=== PATIENT | male | born 1940 | race Caucasian/White ===

== ENCOUNTER → 2020-05-28 14:46 | Outpatient (BNVA) | payer MEDICARE, SELFPAY | PROVIDERS: PCP Family Medicine; Referring Provider Family Medicine; Visit Provider Internal Medicine Cardiovascular Disease | DX: I25.118 Atherosclerotic heart disease of native coronary artery with other forms of angina pectoris (principal); I48.0 Paroxysmal atrial fibrillation; I10 Essential (primary) hypertension; Z79.01 Long term (current) use of anticoagulants; Z79.02 Long term (current) use of antithrombotics/antiplatelets | CPT/HCPCS: 99212 ==

== ENCOUNTER 2020-07-15 10:55 | Outpatient (REF) | payer MEDICARE, SELFPAY ==
--- NOTE | 2020-07-15 | XR_ITS ---
EXAMINATION: XR CHEST CLINICAL INFORMATION: Fall COMPARISON: May 11, 2018 TECHNIQUE: 2 views of the chest were obtained. FINDINGS: There is no evidence of acute parenchymal disease, pneumothorax, or pleural effusion. Heart normal size. No evidence of pulmonary edema. Small metallic foreign body seen about the anterior chest wall. XR/XR chest 2V IMPRESSION: No acute disease.
[2020-07-15 12:06] LABS: Glucose Urine UA NEG (NEG); Leukocyte Esterase Urine NEG (NEG); Nitrite Urine NEG (NEG); PH 5.5 (5.0-8.0); Specific Gravity - Urine >= 1.030 (1.005-1.025); Urine Blood NEG (NEG); Urine Ketones NEG (NEG); Urine Protein 1+ MG/DL (NEG-TRACE)
[2020-07-15 12:10] LABS: Appearance Urine CLEAR; Color Urine YELLOW
[2020-07-15 12:28] LABS: Mucus Urine TRACE /LPF; RBC Urine 0 /HPF (0); Squamous Epithelial Cell Urine TRACE /LPF; WBC Urine 0 /HPF (0-4)
== END 2020-07-15 10:56 | disposition home or self-care (01) ==
LOC: HO.LNP 10:55
PROVIDERS: Visit Provider Family Medicine
DX: R10.9 Unspecified abdominal pain (principal); Z91.81 History of falling
CPT/HCPCS: 71046; 81001; 81003

== ENCOUNTER → 2021-12-06 14:50 | Outpatient (BNVA) | payer MEDICARE, SELFPAY | PROVIDERS: PCP Family Medicine; Referring Provider Family Medicine; Visit Provider Internal Medicine Cardiovascular Disease | DX: I48.0 Paroxysmal atrial fibrillation (principal); I10 Essential (primary) hypertension; I20.8 Other forms of angina pectoris | CPT/HCPCS: 93005; 99212 ==

== ENCOUNTER → 2022-06-13 08:51 | Outpatient (BNVA) | payer MEDICARE, SELFPAY | PROVIDERS: PCP Family Medicine; Visit Provider Internal Medicine Cardiovascular Disease | DX: I10 Essential (primary) hypertension (principal); I48.0 Paroxysmal atrial fibrillation; I20.8 Other forms of angina pectoris | CPT/HCPCS: 93005; 99212 ==

== ENCOUNTER 2023-06-07 09:34 | Outpatient (AMB) | payer MEDICARE, SELFPAY ==
--- NOTE | 2023-06-07 09:46 | MHC.OFFVIS ---
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 Allergies No Known Allergies Allergy (Verified 06/13/22 08:58) Medication List - Last Reconciled 06/07/23 by Joseph Araujo MD amitriptyline 25 mg PO BEDTIME amlodipine 5 mg PO BEDTIME apixaban 5 mg PO BID 90 days aspirin (Adult Aspirin Regimen) 81 mg PO DAILY atorvastatin 40 mg PO BEDTIME ciclopirox 0.77% appl topical coenzyme Q10 (Co Q-10) 100 mg PO DAILY loratadine 10 mg PO DAILY metformin ER 500 mg PO BEDTIME multivitamin 1 tab PO DAILY nitroglycerin 0.4 mg sublingual every 5 min as needed for chest pain, max 3 doses per event; every 5 min as needed for chest pain, max 3 doses per event 30 days omeprazole 40 mg PO DAILY sotalol 80 mg PO DAILY HPI HPI Comments History of Present Illness Details 82-year-old gentleman here for follow-up. He has background history of paroxysmal atrial fibrillation and has been on sotalol and has been sinus rhythm. He also has known coronary disease with previous PCI right coronary artery and circumflex arteries. Clinically stable and has been doing well. He is just recovering from left knee replacement. He is undergoing rehab at this stage and 3 weeks out from surgery. He has significant pain in the knee but is trying to exercise regularly at rehab facility. Denying any chest pain or shortness of breath. Overall clinically stable. 06/07/2023: He returns for follow-up. His EKG in the office showing inferior Q-waves which are new. He is denying any symptoms. He is actually more active than before and has been going to gym every day and exercising up to 5 hours. He is denying any chest discomfort or significant shortness of breath. His main complaint again is fatigue. No bleeding issues. Taking his medications regularly. Blood pressure control is good. He is in sinus rhythm on sotalol. [facility] Medical History (Updated 05/28/20 @ 15:15 by Joseph Araujo MD) Hypertension PAF (paroxysmal atrial fibrillation) Stable angina Surgical History History of cardiac cath History of hip surgery History of total right knee replacement Hx of cholecystectomy Family History Father No problems noted. Mother No problems noted. Social History Alcohol intake: current Alcohol intake frequency: holidays/special occasions only Patient Tobacco Use Status: Former Tobacco user Quit Date: 1979 Smoked: 5 +/- Review of Systems Const Denies chills, Denies fatigue, Denies fever(s), Denies frequent falls, Denies weakness, Denies weight gain and Denies weight loss ENT Denies dizziness Card Denies chest pain, Denies leg edema, Denies lightheadedness, Denies palpitations, Denies dyspnea, Denies dyspnea on exertion, Denies orthopnea and Denies other (loss of consciousness) Resp Denies cough, Denies dyspnea and Denies dyspnea on exertion GI Denies hematochezia and Denies change in stool character Musc Denies abnormal gait, Denies muscle weakness, Denies numbness, Denies radiating pain into limb and Denies tingling Neuro Denies abnormal gait, Denies dizziness, Denies frequent falls, Denies numbness, Denies tingling and Denies weakness Endo Denies fatigue and Denies palpitations Physical Exam Vital Signs: Last Vital Signs Pulse 63 06/07/23 09:47 BP 122/70 06/07/23 09:47 BMI result Body Mass Index 34.2 GENERAL APPEARANCE: in no acute distress, pleasant. NECK: no carotid bruit, no jugular venous distention. SKIN: no suspicious lesions, warm and dry. HEART: no murmurs, regular rate and rhythm. LUNGS: clear to auscultation bilaterally. ABDOMEN: soft, nontender. EXTREMITIES: Mild edema. PERIPHERAL PULSES: equal. NEUROLOGIC: No gross deficits, AAO X 3 Office Procedures EKG Details: Sinus rhythm 63 beats per minute, normal axis, inferior infarct, QTC 395 milliseconds [id number], Complete Assessment & Plan Assessment & Plan (1) Stable angina: Code(s): I20.8 - Other forms of angina pectoris (2) PAF (paroxysmal atrial fibrillation): Code(s): I48.0 - Paroxysmal atrial fibrillation (3) Hypertension: Code(s): I10 - Essential (primary) hypertension Plan Pleasant 83 year gentleman who is here for follow-up. He has background history of paroxysmal atrial fibrillation. He has been on sotalol 80 mg daily. QTC is normal. He is on apixaban for anticoagulation. He has history of coronary disease with previous RCA and circumflex PCI. His EKG showing inferior Q-waves which are new compared to before. He has no symptoms though and has been more active than before. I have advised him to do an echocardiogram to assess for any wall motion abnormality. Depending on that we will do further testing. Blood pressure control is good. He will see us back in October. As he gets his echocardiogram and if there is any abnormality then we will get in touch with him for further testing before he leaves for [place]. Thank you for allowing me to participate in the care of your patient. Please feel free to contact me if you have any questions. Orders: Orders CA echo transthoracic complete Today I20.8 - Other forms of angina pectoris Coding Level of Care Code Est Pt Level 4 (88812) Diagnoses Stable angina I20.8 PAF (paroxysmal atrial fibrillation) I48.0 Hypertension I10 CPT Codes EKG - CPT: 12204-[id number], Complete ([id number])
[2023-06-07 09:47] VITALS: BP 122/70; PULSE 63; BMI 34.2
== END 2023-06-07 10:12 | disposition home or self-care (01) ==
PROVIDERS: PCP Family Medicine; Visit Provider Internal Medicine Cardiovascular Disease
DX: I20.8 Other forms of angina pectoris (principal); I48.0 Paroxysmal atrial fibrillation; I10 Essential (primary) hypertension
CPT/HCPCS: 93010; 99214

== ENCOUNTER → 2023-06-07 09:34 | Outpatient (BNVA) | payer MEDICARE, SELFPAY | PROVIDERS: PCP Family Medicine; Visit Provider Internal Medicine Cardiovascular Disease | DX: I48.0 Paroxysmal atrial fibrillation (principal); I20.89 Other forms of angina pectoris; I10 Essential (primary) hypertension | CPT/HCPCS: 93005; 99212 ==

== ENCOUNTER → 2023-07-06 14:38 | Outpatient (REF) | payer MEDICARE, SELFPAY ==
--- NOTE | 2023-07-06 14:41 | CA_ITS ---
Transthoracic Echocardiogram Patient (Last, First, Middle): Chris Avalos H Gender: Male Date of : 1940 Age: 83 Procedure Date: 07/06/2023 Procedure Type: Transthoracic Echocardiogram Location: OP Height: 170. cm Weight: 100.7 kg BSA: 2.11 m2 Heart Rate: 62 bpm BP: 125 / 60 mmHg Gifts Officer: LAWRENCE Referring MD: Joseph Araujo MD Symptoms: I20.8 - Other forms of angina pectoris Study Quality: Fair ECG Rhythm: Atrial Fibrillation Conclusions: - The left ventricular systolic function is normal. The visually estimated ejection fraction is between 65-70%. - No obvious valvular pathology seen on this study. Findings Left Ventricle Normal left ventricular cavity size. There is mildly increased left ventricular wall thickness. The left ventricular systolic function is normal. The visually estimated ejection fraction is between 65-70%. There is no evidence of regional wall motion abnormalities. Evidence suggests grade I (mild) diastolic dysfunction. There is moderate septal asymmetric hypertrophy. LV peak GLS -16.3%, could be underestimation. Right Ventricle Normal right ventricular cavity size and systolic function. Atria The left atrium is mildly dilated. The right atrium is normal in size. Aortic Valve There is a normal trileaflet aortic valve. There is mild calcification of the aortic valve. There is no aortic valve stenosis. There is trace (trivial) aortic valve regurgitation. Mitral Valve The mitral valve appears normal. There is no mitral valve regurgitation. There is no mitral valve stenosis. Pulmonic Valve The pulmonic valve is likely normal. Tricuspid Valve Normal tricuspid valve structure. There is trace tricuspid valve regurgitation. There is no evidence of pulmonary hypertension. Great Vessels The asc aorta is normal in size. Small plaque is seen in the sino tubular ridge. Venous The inferior vena cava is normal in size and collapses greater than 50% with inspiration. Pericardium/Pleural There is no evidence of pericardial effusion. Prior Study Comparison No significant change compared to prior study dated: 05/12/2018. Recommendations, Care & Conclusions No obvious valvular pathology seen on this study. Measurements 2D Linear Measurements IVSd: 1.41 0.6-0.9/0.6-1.0 cm LVIDd: 4.56 3.9-5.3/4.2-5.9 cm LVIDd Index: 2.16 2.4-3.2/2.2-3.1 cm/m2 LVIDs: 2.58 2.0-3.6 cm LVPWd: 1.11 0.7-1.1 cm LA Diam: 3.60 2.7-3.8/3.0-4.0 cm LAIDs Index: 1.71 1.5-2.3 cm/m2 LV Mass: 270.48 67-162/88-224 g LV Mass Index: 128.19 43-95/49-115 g/m2 LVOT Diam: 1.80 3.0+(-)1.3 cm 2D Systolic Function EF 4C: 63.40 >55% EF 2C: 57.40 >55% EF BiP: 61.10 >55% Mitral Valve MV Pk E: 1.16 MV PK A: 0.72 MV Decel Time: 200.00 E/A: 1.60 E'Lateral: 6.20 E'Medial: 6.09 E/E' Med: 19.00 E/E' Lat: 18.70 PHT: 59.00 MVA PHT: 3.73 Decel [place]: 5.80 Aortic Valve AoV Pk Emerson: 1.34 AoV Mn Emerson: 0.94 AoV VTI: 0.31 AoV Pk Grad: 7.00 Aov Mn Grad: 4.00 CRISTHIAN Cont.VTI: 2.38 AI Pk Emerson: 3.32 AI [place]: 1.71 LVOT LVOT Pk Emerson: 1.24 LVOT Mn Emerson: 0.85 LVOT VTI: 0.29 LVOT Pk Grad: 6.00 LVOT Mn Grad: 3.00 LVOT Diam: 1.80 LVOT Area: 2.54 Diastolic Function MV Pk E: 1.16 MV Pk A: 0.72 E/A: 1.60 E'Medial: 6.09 E/E' Med: 19.00 E' Laterial: 6.20 E/E' Lat: 18.70 Right Ventricle TAPSE (mm): 24.40 TVS' Emerson: 13.90 Tricuspid Valve TR Pk Emerson: 2.37 TR Pk Grad: 22.00 RA Press: 3.00 RVSP: 25.00 Great Vessels Aorta Sinus of Valsalva: 3.20 2.0-3.5 cm Ao Asc: 3.40 2.1-3.4 cm Pulmonary Valve PV Pk Emerson: 0.92 Peak PV Grad: 3.00 Updated in Other Vendor System with Status of Final Sky Lopez MD electronically signed on 07/08/2023 1:25:11 PM with status of Final
== END ==
LOC: HO.CARD 14:38
PROVIDERS: PCP Family Medicine; Visit Provider Internal Medicine Cardiovascular Disease
DX: I20.81 Angina pectoris with coronary microvascular dysfunction (principal)
CPT/HCPCS: 93306; 93356

== ENCOUNTER → 2023-07-06 14:41 | Outpatient (BNV) | payer MEDICARE, SELFPAY | PROVIDERS: PCP Family Medicine; Visit Provider Internal Medicine | DX: I20.81 Angina pectoris with coronary microvascular dysfunction (principal); I35.8 Other nonrheumatic aortic valve disorders | CPT/HCPCS: 93306 ==

== ENCOUNTER 2024-01-03 09:57 | Outpatient (AMB) | payer MEDICARE, SELFPAY ==
[2024-01-03 10:00] VITALS: BP 140/62; PULSE 59; BMI 34.7
--- NOTE | 2024-01-03 10:00 | MHC.OFFVIS ---
Vital Signs 01/03/24 10:00 Height 5 ft 8 in Weight 227 lb 15.327 oz BMI 34.7 BP 140/62 H Blood Pressure Location Lt brachial Position Sitting Pulse 59 Intake Visit Reasons: f/up Intake Note: pt states that he is doing fine. 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 Accompanied by: Spouse Allergies No Known Allergies Allergy (Verified 06/13/22 08:58) Medication List - Last Reconciled 01/03/24 by Joseph Araujo MD amitriptyline 50 mg PO DAILY amlodipine 5 mg PO BEDTIME apixaban 5 mg PO BID 90 days aspirin (Adult Aspirin Regimen) 81 mg PO DAILY atorvastatin 40 mg PO BEDTIME ciclopirox 0.77% appl topical coenzyme Q10 (Co Q-10) 100 mg PO DAILY fenofibrate nanocrystallized 48 mg PO DAILY loratadine 10 mg PO DAILY metformin 1,000 mg PO BEDTIME multivitamin 1 tab PO DAILY nitroglycerin 0.4 mg sublingual every 5 min as needed for chest pain, max 3 doses per event; every 5 min as needed for chest pain, max 3 doses per event 30 days omeprazole 40 mg PO DAILY sotalol 80 mg PO DAILY HPI Comments Details: 83-year-old gentleman here for follow-up. He has background history of paroxysmal atrial fibrillation and has been on sotalol and has been sinus rhythm. He also has known coronary disease with previous PCI right coronary artery and circumflex arteries. Clinically stable and has been doing well. He is just recovering from left knee replacement. He is undergoing rehab at this stage and 3 weeks out from surgery. He has significant pain in the knee but is trying to exercise regularly at rehab facility. Denying any chest pain or shortness of breath. Overall clinically stable. 06/07/2023: He returns for follow-up. His EKG in the office showing inferior Q-waves which are new. He is denying any symptoms. He is actually more active than before and has been going to gym every day and exercising up to 5 hours. He is denying any chest discomfort or significant shortness of breath. His main complaint again is fatigue. No bleeding issues. Taking his medications regularly. Blood pressure control is good. He is in sinus rhythm on sotalol. 01/03/24: He returns for follow-up. He came back from [place] in 11/18/2023. He had some blood workup done recently which showed triglycerides more than 600. He was started on fenofibrate by his primary care physician. He has not noticed any muscle aches and pains. He has chronic joint pains which are similar to before. He said his diet while he was in [place] was not great because of using a lot of processed foods and canned food. They are changing the diet while there back in [place]. He is denying any chest pains or shortness of breath. No bleeding concerns on apixaban. He is on sotalol with normal QT interval and he is in sinus bradycardia. [facility] Medical History (Updated 05/28/20 @ 15:15 by Joseph Araujo MD) Hypertension PAF (paroxysmal atrial fibrillation) Stable angina Surgical History Hx of cholecystectomy History of cardiac cath History of total right knee replacement History of hip surgery Family History Father No problems noted. Mother No problems noted. Social History Alcohol intake: current Alcohol intake frequency: holidays/special occasions only Patient Tobacco Use Status: Former Tobacco user Years Smoked: 5 +/- Review of Systems Const Denies chills, Denies fatigue, Denies fever(s), Denies frequent falls, Denies weakness, Denies weight gain and Denies weight loss ENT Denies dizziness Card Denies chest pain, Denies leg edema, Denies lightheadedness, Denies palpitations, Denies dyspnea and Denies dyspnea on exertion Resp Denies cough, Denies dyspnea and Denies dyspnea on exertion GI Denies hematochezia Musc Denies abnormal gait, Denies muscle weakness, Denies numbness, Denies radiating pain into limb and Denies tingling Neuro Denies abnormal gait, Denies dizziness, Denies frequent falls, Denies numbness, Denies tingling and Denies weakness Endo Denies fatigue and Denies palpitations Physical Exam Vital Signs: Last Vital Signs Pulse 59 01/03/24 10:00 BP 140/62 H 01/03/24 10:00 BMI result Body Mass Index 34.7 GENERAL APPEARANCE: in no acute distress, pleasant. NECK: no carotid bruit, no jugular venous distention. SKIN: no suspicious lesions, warm and dry. HEART: no murmurs, regular rate and rhythm. LUNGS: clear to auscultation bilaterally. ABDOMEN: soft, nontender. EXTREMITIES: Mild edema. PERIPHERAL PULSES: equal. NEUROLOGIC: No gross deficits, AAO X 3 Office Procedures EKG Details: sinus bradycardia 59 beats per minute, normal axis, inferior Q-waves - old infarct, QTC 390 milliseconds. [id number], Complete Assessment & Plan Assessment & Plan (1) Hypertension: Code(s): I10 - Essential (primary) hypertension Category: Medical (2) PAF (paroxysmal atrial fibrillation): Code(s): I48.0 - Paroxysmal atrial fibrillation Category: Medical (3) Stable angina: Code(s): I20.8 - Other forms of angina pectoris Category: Medical Plan 83-year-old gentleman who is here for follow-up. He has known history of coronary disease and currently has stable angina. He is taking atorvastatin and amlodipine. He is on sotalol as antiarrhythmic for paroxysmal atrial fibrillation. Clinically appears to be stable. Denying any chest pain or shortness of breath. Blood pressure is mildly elevated which can be monitored and medications can be adjusted. I have advised him to get repeat fasting lipid panel in few weeks. He is saying that he is more sedentary when he goes to [place] versus when he is back in [place]. He will increase his activity and adjust his diet and we will reassess his lipid panel. Thank you for allowing me to participate in the care of your patient. Please feel free to contact me if you have any questions. Coding Level of Care Code Est Pt Level 4 (93345) Diagnoses Hypertension I10 PAF (paroxysmal atrial fibrillation) I48.0 Stable angina I20.8 CPT Codes EKG - CPT: 62254-Meolgriowxrskxiyz, Complete ([id number])
== END 2024-01-03 10:32 | disposition home or self-care (01) ==
PROVIDERS: PCP Family Medicine; Visit Provider Internal Medicine Cardiovascular Disease
DX: I10 Essential (primary) hypertension (principal); I48.0 Paroxysmal atrial fibrillation; I20.89 Other forms of angina pectoris
CPT/HCPCS: 93010; 99214

== ENCOUNTER → 2024-01-03 09:57 | Outpatient (BNVA) | payer MEDICARE, SELFPAY | PROVIDERS: PCP Family Medicine; Visit Provider Internal Medicine Cardiovascular Disease | DX: I48.0 Paroxysmal atrial fibrillation (principal); I10 Essential (primary) hypertension; I20.89 Other forms of angina pectoris | CPT/HCPCS: 93005; 99212 ==

== ENCOUNTER 2024-05-29 09:42 | Outpatient (AMB) | payer MEDICARE, SELFPAY ==
[2024-05-29 09:44] VITALS: BP 140/72; PULSE 66; BMI 35.3
--- NOTE | 2024-05-29 09:44 | A.OFFVIS_ITS ---
Vital Signs 05/29/24 09:44 Height 5 ft 8 in Weight 231 lb 14.821 oz BMI 35.3 BP 140/72 H Blood Pressure Location Lt brachial Position Sitting Pulse 66 Pulse Source Monitor Intake Visit Reasons: 4 month follow-up Intake Note: 4 mth f/up Spine Supervisor Required: No Accompanied by: Spouse Allergies No Known Allergies Allergy (Verified 06/13/22 08:58) Medication List - Last Reconciled 05/29/24 by Joseph Araujo MD amitriptyline 50 mg PO DAILY amlodipine 5 mg PO BEDTIME apixaban 5 mg PO BID 90 days aspirin (Adult Aspirin Regimen) 81 mg PO DAILY atorvastatin 40 mg PO BEDTIME ciclopirox 0.77% appl topical coenzyme Q10 (Co Q-10) 100 mg PO DAILY fenofibrate nanocrystallized 48 mg PO DAILY loratadine 10 mg PO DAILY metformin 1,000 mg PO BEDTIME multivitamin 1 tab PO DAILY nitroglycerin 0.4 mg sublingual every 5 min as needed for chest pain, max 3 doses per event; every 5 min as needed for chest pain, max 3 doses per event 30 days omeprazole 40 mg PO DAILY sotalol 80 mg PO DAILY HPI Comments Details: 83-year-old gentleman here for follow-up. He has background history of paroxysmal atrial fibrillation and has been on sotalol and has been sinus rhythm. He also has known coronary disease with previous PCI right coronary artery and circumflex arteries. Clinically stable and has been doing well. He is just recovering from left knee replacement. He is undergoing rehab at this stage and 3 weeks out from surgery. He has significant pain in the knee but is trying to exercise regularly at rehab facility. Denying any chest pain or shortness of breath. Overall clinically stable. 06/07/2023: He returns for follow-up. His EKG in the office showing inferior Q- waves which are new. He is denying any symptoms. He is actually more active than before and has been going to gym every day and exercising up to 5 hours. He is denying any chest discomfort or significant shortness of breath. His main complaint again is fatigue. No bleeding issues. Taking his medications regularly. Blood pressure control is good. He is in sinus rhythm on sotalol. 01/03/24: He returns for follow-up. He came back from [place] in 11/18/2023. He had some blood workup done recently which showed triglycerides more than 600. He was started on fenofibrate by his primary care physician. He has not noticed any muscle aches and pains. He has chronic joint pains which are similar to before. He said his diet while he was in [place] was not great because of using a lot of processed foods and canned food. They are changing the diet while there back in [place]. He is denying any chest pains or shortness of breath. No bleeding concerns on apixaban. He is on sotalol with normal QT interval and he is in sinus bradycardia. 05/29/2024: He is here for follow-up. He is denying any chest discomfort but continues to get some shortness of breath with activities. He has lower extremi ty edema. He has peripheral neuropathy on chronic metformin. He has CKD and is going to seen Nephrology. [facility] Medical History (Updated 05/28/20 @ 15:15 by Joseph Araujo MD) Hypertension PAF (paroxysmal atrial fibrillation) Stable angina Surgical History Hx of cholecystectomy History of cardiac cath History of total right knee replacement History of hip surgery Family History Father No problems noted. Mother No problems noted. Social History Alcohol intake: current Alcohol intake frequency: holidays/special occasions only Patient Tobacco Use Status: Former Tobacco user Years Smoked: 5 +/- Review of Systems Const Denies chills, Denies fatigue, Denies fever(s), Denies frequent falls, Denies weakness, Denies weight gain and Denies weight loss ENT Denies dizziness Card Denies chest pain, Denies leg edema, Denies lightheadedness, Denies palpitations, Denies dyspnea and Denies dyspnea on exertion Resp Denies cough, Denies dyspnea and Denies dyspnea on exertion GI Denies hematochezia Musc Denies abnormal gait, Denies muscle weakness, Denies numbness, Denies radiating pain into limb and Denies tingling Neuro Denies abnormal gait, Denies dizziness, Denies frequent falls, Denies numbness, Denies tingling and Denies weakness Endo Denies fatigue and Denies palpitations Physical Exam Vital Signs: Last Vital Signs Pulse 66 05/29/24 09:44 BP 140/72 H 05/29/24 09:44 BMI result Body Mass Index 35.3 GENERAL APPEARANCE: in no acute distress, pleasant. NECK: no carotid bruit, mild jugular venous distention. SKIN: no suspicious lesions, warm and dry. HEART: no murmurs, regular rate and rhythm. LUNGS: clear to auscultation bilaterally. ABDOMEN: soft, nontender. EXTREMITIES: Mild edema. PERIPHERAL PULSES: equal. NEUROLOGIC: No gross deficits, AAO X 3 Office Procedures EKG Details: Sinus rhythm 66 beats per minute, normal axis, inferior infarct, QTC 404 milliseconds. 52944-Badrokcopvwrarpdh, Complete Assessment & Plan Assessment & Plan (1) PAF (paroxysmal atrial fibrillation): Code(s): I48.0 - Paroxysmal atrial fibrillation Category: Medical (2) Stable angina: Code(s): I20.8 - Other forms of angina pectoris Category: Medical (3) Hypertension: Code(s): I10 - Essential (primary) hypertension Category: Medical Plan [age] gentleman who is here for follow-up. He has known history of paroxysmal atrial fibrillation on sotalol and has been on sinus rhythm. He is on anticoagulation with apixaban 5 mg twice a day. He has mild JVD with crackles and peripheral edema. His creatinine is 1.5 and he is starting to see Nephrology soon. I am adding isosorbide mononitrate 30 mg once a day. This will help his blood pressure and probably help with filling pressures. Would consider adding some diuretics after Nephrology input. His creatinine previously was 1.43 and is now 1.5. I think it is probably progression of chronic kidney disease. He has peripheral neuropathy due to diabetes and has been on metformin for long time. Sometime B12 deficiencies the cause and I have advised him to try obtx-slm-oeatetp B12 to see if that helps his symptoms. He will see us back as he returns from [place]. Thank you for allowing me to participate in the care of your patient. Please feel free to contact me if you have any questions. Medications: New isosorbide mononitrate ER 30 mg PO DAILY 60 tabs 3RF Coding Level of Care Code Est Pt Level 4 (19344) Diagnoses PAF (paroxysmal atrial fibrillation) I48.0 Stable angina I20.8 Hypertension I10 CPT Codes EKG - CPT: 80324-Ritntfkshvxrvtbul, Complete ([id number])
--- OUTSIDE RECORDS SUMMARY | 2024-05-29 09:44 | XMS_ITS | Continuity of Care Document ---
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 Role Phone Bashir Severino MD Primary Care Physician Encounter [facility] Date(s): 07/18/19 - 07/18/[address] [address]- [facility] Attending Physician: Bashir Severino MD Allergies, Adverse Reactions, Alerts Substance Reaction Severity Status NKA Active Immunizations Not Given Vaccine Date Status Refusal Reason pneumococcal 23-valent vaccine 1 06/24/15 Not Give n Patient Refuses 1Result Comment: Pt refused - states will take in few weeks Medications amitriptyline 25 mg oral tablet 1 tablet = 25 mg, By Mouth, Daily at bedtime, 0 Refills, Maintenance, 06/19/15 2:25:58 Start Date: 06/19/15 Status: Ordered apixaban 5 mg oral tablet = 5 mg, By Mouth, 2 times a day, # 120 tablet, 4 Refills, Maintenance, 06/02/18 10:11:16 EDT, Tablet Start Date: 06/02/18 Stop Date: 03/29/19 Status: Ordered Aspirin = 81 mg, By Mouth, Daily, 0 Refills, Maintenance, 06/19/15 2:29:04 Start Date: 06/19/15 Status: Ordered clopidogrel 75 mg oral tablet 75 mg, By Mouth, Daily, # 60 tablet, Refills 4, Tot. Refills 4, Maintenance, 06/02/18 10:11:29 EDT,Route to Pharmacy Electronically, [id number], [id number] Start Date: 06/02/18 Stop Date: 10/30/18 Status: Ordered Lipitor 80 mg oral tablet 1 tablet = 80 mg, By Mouth, Daily, # 60 tablet, 4 Refills, Maintenance, Tablet, Route to Pharmacy Electronically, [id number], [id number] Start Date: 06/02/18 Stop Date: 10/30/18 Status: Ordered loratadine 10 mg oral tablet 10 mg, 1, tablet, By Mouth, Daily, # 30 tablet, Refills 0, Maintenance, 05/16/17 15:10:33 Start Date: 05/16/17 Status: Ordered Lyrica 100 mg oral capsule 1 capsule = 100 mg, By Mouth, Daily at bedtime, 0 Refills, Maintenance, 06/19/15 2:25:16 Start Date: 06/19/15 Status: Ordered metFORMIN 500 mg oral tablet 1 tablet = 500 mg, By Mouth, Daily, To start only after 48 hours of discharge, # 60 tablet, 4 Refills, Maintenance, 06/02/18 10:11:43 EDT, Tablet Start Date: 06/02/18 Status: Ordered Misc Rx Refills 0, Maintenance, multivitamins, Coenzyme Q, Glucosamine and other [id number] supplements., 05/13/18 21:10:26 EDT, Compound Start Date: 05/13/18 Status: Ordered omeprazole 40 mg oral enteric coated capsule = 40 mg, By Mouth, Daily, # 60 capsule, 3 Refills, Maintenance, 06/02/18 10:13:04 EDT, Suspension Start Date: 06/02/18 Status: Ordered sotalol 80 mg oral tablet 80 mg, 1, tablet, By Mouth, 2 times a day, This was increased to 80mg BID at [place]., # 120 tablet, Refills 4, Tot. Refills 4, Maintenance, 06/02/18 10:11:35 EDT, Route to Pharmacy Electronically, [id number], [facility]... Start Date: 06/02/18 Stop Date: 10/30/18 Status: Ordered Tylenol Caplet Extra Strength = 1,000 mg, By Mouth, 2 times a day, 0 Refills, Maintenance, 06/19/15 2:30:51 Start Date: 06/19/15 Status: Ordered Problem List Condition Effective Dates Status Health Status Inform ant NSTEMI (non-ST elevated myoc ardial infarction)(Confirmed) Active Social History Social History Type Response Smoking Status Former smoker; Type: Cigarettes; Previous treatment: None entered on: 06/19/15 Sex
--- OUTSIDE RECORDS SUMMARY | 2024-05-29 09:44 | XMS_ITS ---
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 Name Role Phone Maycol CORTEZ, Bashir Primary Care Provider UnavailRom Calderón Unavailable [phone] ALLERGIES No Known Allergies REASON FOR VISIT At Risk Footcare MEDICATIONS Medication SIG (Take, Route, Frequency, Duration) Notes Start Date End Date Status Aspirin 81 MG 1 tablet Orally Once a day 01/27/2014 Active amLODIPine Besylate 2.5 MG Oral for 30 Active Lyrica 50 MG Orally once in morning Not-Taking traMADol HCl prn Not-Anuel ing Atorvastatin Calcium 80 MG 1 tablet Orally Active hydroCHLOROthiazide 25 MG 1 tablet Oral Not-Taking Nystop 259605 UNIT/GM External Not-Taking Tylenol 1000mg bid Active Sotalol HCl 80 MG 1 tablet Oral every 12 hrs Active Omeprazole 40 MG 1 capsule Orally Once a day Active Loratadine 10 MG 1 tablet Orally Once a day 01/27/2014 Active Indomethacin prn Active Multivitamins Orally 01/27/2014 Activ e metFORMIN HCl Active Lyrica 100 MG 1 capsule Orally once at night Active Eliquis Active Co Enzyme Q-10 Activ e Clear Eyes for Dry Eyes Active Clopidogrel Bisulfate 75 MG Orally Active Glucosamine Active Amitriptyline HCl 25 MG Orally Active Amoxicillin 500 MG 1 tablet Oral as needed for dental appts PRN-Dental Active SOCIAL HISTORY Tobacco Use: Social History Observation Description Date Details (start date - stop date) Never Smoker NA - NA Sex Assigned At : Social History Observation Description Sex Assigned At Unknown Tobacco Use/Smoking Question Answer Notes Are you a: nonsmoker Additional Findings: Tobacco Non-User Current no n-smoker Alcohol Screen Question Answer Notes Did you have a drink containing alcohol in the p ast year? No Points 0 Interpretation Negative Tobacco use other than smoking: Question Answer Notes Are you an other tobacco user? No VITAL SIGNS Height 5 ft 8 in in 05/26/2023 Weight 220 lbs 05/26/2023 BMI 33.45 kg/m2 05/26/2023 PROCEDURES Procedure Date Ordered Date Performed Result Body Sit e 49865-[id number] NAIL, 6 OR MORE 05/26/2023 N/A 48980-AQVS SKIN LESIONS, OVER 4 05/26/2023 N/A Encounters Encounter Location Date Provider Diagnosis [facility] [address] [address] 05/26/2023 Rom Pollock Type 2 diabetes mellitus with diabetic polyneuropathy E11.42 and Onychomycosis B35.1 ASSESSMENTS Encounter Date Diagnosis Assessment Notes Treatment Notes Treatment Clinical Notes 05/26/2023 Type 2 diabetes mellitus with diabetic polyneuropathy (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.42) 05/26/2023 Onychomycosis (ICD-1 0 - B35.1) PLAN OF TREATMENT Pending Test Test Name Order Date [id number] NAIL, 6 OR MORE 05/26/2023 21870-[id number] SKIN LESIONS, OVER 4 05/26/20 23 Next Appt Details Follow Up: prn, Reason: Provider Name:Rom Pollock , 06/04/2024 10:45:00 AM, [address] [place] [address], [id number], Procedure Notes * Category Sub-Category Detail Notes Debride Nail 6-10 Nail debridement Nail debridem ent performed extensively to reduce/remove overall nail length and girth, subungual debris, and necrotic tissue, by manual and electrical means with use of a nail nipper and/or dremel, to more viable healthy nail plate or bed tissue 6-10. Silver nitrate used for any petechial bleeding as necessary. Patient chooses, no pharmaceutical tx (44796) Keratoma Treatment Parring or Cutting o f Benign Hyperkeratotic Lesion(s) 84136 ( >4 Lesions) - The Benign hyperkeratotic lesions, as described above were pared, and/or cut utilizing a sterile #15 blade, tissue nippers, and/or dremel Progress Notes * Examination Category Sub-Category Detail Notes Neurological SENSORY: Neurological exa m demonstrates, reduced light touch sensation, reduced sharp/dull discrimination lower extremity, reduced vibration lower extremity, at Forefoot, B/L, 5.07 monofilament test performed at plantar aspects of 5 varied sites per foot shows sensation, reduced, B/L, Pt relates, paresthesia, pins and needles sensation, tingling, at rest, Forefoot, B/L Dermatologic SKIN FINDINGS: Skin exam reveal s Keratotic lesion(s) located at, Medial, IPJ, TA, Medial, IPJ, T5, SUB MTH (s), 1, B/L , SUB MTH (s), 2, B/L , SUB MTH (s), 3, B/L , SUB MTH (s), 4, B/L , SUB MTH (s), 5, B/L Nails NAILS are: Elongated, overg rown, dystrophic, lytic, greater than 3mm thick, discolored and friable with crumbly malodorous subungual debris, 1-5 B/L History and Physical Notes * HPI (History of Present Illness) Category Sub-Category Detail Notes At Risk footcare Pt States Last PCP Visit: Date: 02/13 [facility] No new complaints
--- OUTSIDE RECORDS SUMMARY | 2024-05-29 09:44 | XMS_ITS | Patient Health Record ---
Author Organization [facility] mig[facility] [place] Address [address] [place] [address] Care Team Providers Care Family And Consumer Sciences Professor Name Role Phone Bashir Severino MD Primary Care Provider Unavailab Rom Rose Unavailable [phone] ALLERGIES No Known Allergies REASON FOR REFERRAL No Information MEDICATIONS Medication SIG (Take, Route, Frequency, Duration) Notes Start Date End Date Status Lyrica 100 MG 1 capsule Orally once at night Active Eliquis Active Nystop 628682 UNIT/GM External Not-Taking Glucosamine Active hydroCHLOROthiazide 25 MG 1 tablet Oral Not-Taking Indomethacin prn Active traMADol HCl prn Not-Anuel ing Loratadine 10 MG 1 tablet Orally Once a day 01/27/2014 Active Lyrica 50 MG Orally once in morning Not-Taking Amitriptyline HCl 25 MG Orally Active Omeprazole 40 MG 1 capsule Orally Once a day Active Clopidogrel Bisulfate 75 MG Orally Active Sotalol HCl 80 MG 1 tablet Oral every 12 hrs Active Clear Eyes for Dry Eyes Active Tylenol 1000mg bid Active Co Enzyme Q-10 Activ e Extra Depth Orthopedic Shoes (1 Pair) with Customized Heat Molded Multidensity Innersoles (3 Pair) as directed Dx: NIDDM/Polyneuropath y (E11.42), Hammertoe Foot Deformity (M20.41,M20.42), Preulcerative Skin Lesion(s) (L85.1 11/21/2023 Active Aspirin 81 MG 1 tablet Orally Once a day 01/27/2014 Active Atorvastatin Calcium 80 MG 1 tablet Orally Active metFORMIN HCl Active Amoxicillin 500 MG 1 tablet Oral as needed for dental appts PRN-Dental Active Multivitamins Orally 01/27/2014 Activ e amLODIPine Besylate 2.5 MG Oral for 30 Active IMMUNIZATIONS Vaccine Route Administration Date Status Comme nts COVID-19 Pfizer BioNTech Vaccine Unknown 07/08/2021 Administered 1st 08/18/20 2nd 09/08/20 Influenza Unknown 11/24/2015 Administered Influenza Unknown 05/24/2016 Pending Influenza Unknown 05/31/2017 Administered Influenza Unknown 05/28/2021 Administered Influenza Unknown 06/30/2022 Administered SOCIAL HISTORY Tobacco Use: Social History Observation [...] Are you an other tobacco user? No PROBLEMS Problem Type ICD Code Onset Dates Problem Status W/U Status Risk SNOMED Code Notes Problem Other hammer toe(s) (acquired), right foot (M20.41) Active confirmed Acquired hamme r toe of right foot (4314706526075619 ) Problem Other hammer toe(s) (acquired), left foot (M20.42) Active confirmed Acquired hamme r toe of left foot (9524893429954372 ) Problem Type 2 diabetes mellitus with diabetic polyneuropathy (E11.42) Active confirmed Polyneuropathy due to type 2 diabetes mellitus (632309478) VITAL SIGNS Height 5 ft 8 in in 02/20/2024 Weight 220 lbs 02/20/2024 BMI 33.45 kg/m2 02/20/2024 PROCEDURES Procedure Date Ordered Date Performed Result Body Sit e 94274-GRYRWZD NAIL, 6 OR MORE 11/21/2023 N/A 54144-TFZF SKIN LESIONS, OVER 4 11/21/2023 N/A 58596-ELHKSUK NAIL, 6 OR MORE 02/20/2024 N/A 99765-IBEM SKIN LESIONS, OVER 4 02/20/2024 N/A Encounters Encounter Location Date Provider Diagnosis [facility] [address] [place] [address] 11/21/2023 Rom Pollock Type 2 diabetes mellitus with diabetic polyneuropathy E11.42 ; Onychomycosis B35.1 ; Other hammer toe(s) (acquired), right foot M20.41 and Other hammer toe(s) (acquired), left foot M20.42 [facility] [address] [place] [address] 02/20/2024 Rom Pollock Type 2 diabetes mellitus with diabetic polyneuropathy E11.42 and Tinea unguium B35.1 ASSESSMENTS Encounter Date Diagnosis Assessment Notes Treatment Notes Treatment Clinical Notes 11/21/2023 Type 2 diabetes mellitus with diabetic polyneuropathy (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.42) 11/21/2023 Onychomycosis (ICD-1 0 - B35.1) 02/20/2024 Type 2 diabetes mellitus with diabetic polyneuropathy (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.42) 02/20/2024 Tinea unguium (ICD-1 0 - B35.1) 11/21/2023 Other hammer toe(s) (acquired), right foot (ICD-10 - M20.41) Patient Educated with: DIABETIC FOOT CARE INSTRUCTIONS.pdf (DIABETIC FOOT CARE INSTRUCTIONS.pdf ) 11/21/2023 Other hammer toe(s) (acquired), left foot (ICD-10 - M20.42) PLAN OF TREATMENT Pending Test Test Name Order Date Hemoglobin A1c 02/10/2015 Hemoglobin A1c 05/19/2015 41632-TWAOEXL NAIL, 6 OR MORE 05/19/2015 70398-SGHEVJP NAIL, 6 OR MORE 04/08/2014 15508-VHAXUUL NAIL, 6 OR MORE 11/11/2014 95771-TKJDZWO NAIL, 6 OR MORE 02/10/2015 43854-NPAFHNZ NAIL, 6 OR MORE 07/04/2014 37737-QZITRDZ NAIL, 6 OR MORE 08/07/2015 27530-NNJSDFT NAIL, 6 OR MORE 11/24/2015 02931-ABNBACQ NAIL, 6 OR MORE 02/23/2016 34644-AHQBDDL NAIL, 6 OR MORE 05/24/2016 96133-VEAOFRW NAIL, 6 OR MORE 11/22/2016 88456-MEBWVCD NAIL, 6 OR MORE 02/21/2017 03338-CFJTUHX NAIL, 6 OR MORE 05/12/2017 31227-XCWNHJF NAIL, 6 OR MORE 11/10/2017 03681-WVHZDOL NAIL, 6 OR MORE 03/09/2018 66345-WOVRKVQ NAIL, 6 OR MORE 06/12/2018 05197-ATTALKN NAIL, 6 OR MORE 11/27/2018 27813-KSTQAOL NAIL, 6 OR MORE 02/15/2019 98569-RPUGMCY NAIL, 6 OR MORE 05/21/2019 98316-CJEOAWC NAIL, 6 OR MORE 11/26/2019 64947-BGOAHDW NAIL, 6 OR MORE 03/17/2020 16760-EFAFVXC NAIL, 6 OR MORE 06/16/2020 95599-CKXEVPU NAIL, 6 OR MORE 09/22/2020 55877-YSQNOXJ NAIL, 6 OR MORE 12/22/2020 80842-NAHSZEU NAIL, 6 OR MORE 04/09/2021 04313-ASASGUG NAIL, 6 OR MORE 11/19/2021 59532-AJCMXDK NAIL, 6 OR MORE 02/18/2022 97672-UJHAXBW NAIL, 6 OR MORE 05/06/2022 38571-SALCVQA NAIL, 6 OR MORE 11/25/2022 04748-UOQZNSM NAIL, 6 OR MORE 02/24/2023 09880-OKZTFKZ NAIL, 6 OR MORE 05/26/2023 33788-QLDHHZA NAIL, 6 OR MORE 11/21/2023 03965-SRZNDGH NAIL, 6 OR MORE 02/20/2024 43967-QPYSQNJ NAIL, 6 OR MORE 01/27/2014 22057-Tqaptnun Plate 05/21/2019 56059-BZZM SKIN LESIONS, OVER 4 05/21/20 19 91633-JESV SKIN LESIONS, OVER 4 11/26/19 25616-RSZM SKIN LESIONS, OVER 4 06/16/20 20 53492-KTDK SKIN LESIONS, OVER 4 03/17/20 20 13805-ZSJE SKIN LESIONS, OVER 4 11/20/19 84036-AEBV SKIN LESIONS, OVER 4 04/09/20 10454-RIUT SKIN LESIONS, OVER 4 12/23/19 14575-XPEU SKIN LESIONS, OVER 4 09/22/19 79319-FIOA SKIN LESIONS, OVER 4 02/20/20 24 18432-SHWF SKIN LESIONS, OVER 4 11/21/19 24 75040-XDGK SKIN LESIONS, OVER 4 05/26/20 23 49299-EWFH SKIN LESIONS, OVER 4 02/25/20 23 83466-DFYO SKIN LESIONS, OVER 4 11/26/19 23 30972-THXS SKIN LESIONS, OVER 4 05/06/20 22 64726-QGKM SKIN LESIONS, OVER 4 02/19/20 22 62416-CRZB SKIN LESIONS, OVER 4 02/16/20 19 40842-VZQU SKIN LESIONS, OVER 4 11/28/19 19 81752-HSFY SKIN LESIONS, OVER 4 06/12/20 18 39792-EYKT SKIN LESIONS, OVER 4 03/09/20 18 14068-YMAO SKIN LESIONS, OVER 4 11/11/19 18 97230-FBWT SKIN LESIONS, OVER 4 05/12/20 17 93921-SREK SKIN LESIONS, OVER 4 11/23/19 17 14703-VIAK SKIN LESIONS, OVER 4 02/22/20 17 95369-DTUI SKIN LESIONS, OVER 4 05/24/20 16 41752-VSPH SKIN LESIONS, OVER 4 02/23/20 16 79326-MBWS SKIN LESIONS, OVER 4 11/24/19 16 80303-SZOD SKIN LESIONS, OVER 4 08/07/19 16 83162-ZVDQ SKIN LESIONS, OVER 4 07/04/20 14 97206-FXEP SKIN LESIONS, OVER 4 02/11/20 15 74261-VNNT SKIN LESIONS, OVER 4 11/12/19 15 77293-DSLI SKIN LESIONS, OVER 4 04/08/20 14 09445-AHAK SKIN LESIONS, OVER 4 05/19/20 15 95651-SRHL SKIN LESIONS, 2 TO 4 01/28/20 14 Next Appt Details Provider Name:Rom Stevie Pollock , 06/04/2024 10:45:00 AM, [address] [place], [address], Insurance Providers Payer Name Payer Address Payer Phone Subscriber Number Group Number Insured Name Patient Relationship to Insured Coverage Start Date Coverage End Date [employer]age [address] [place] [address] [id number] Chris Avalos Self - patient is the insured MEDICAL (GENERAL) HISTORY Medical History History ICD Code Arthritis Back,Hip,and Knee pain Chicken pox Fibromyalgia Hypercholesterolemia Hypertension Joint implants/screws Measles Mumps Reflux Gout Diabetic type ll Surgical History Surgery Date(Month/Year) right hip replacement 10/03 stent insertion 04/09 cholecystectomy 08/09 left hip replacement 05/2015 3 stents 04/2018 Cortisone injectionin Knee 11/18/21 Knee Replacement left 04/2022 Hospitalization History Reason Date(Month/[facility]) [facility] CT scans taken overnight cause too much sun 09/2021
--- OUTSIDE RECORDS SUMMARY | 2024-05-29 09:44 | XMS_ITS | Continuity of Care Document ---
Author Organization [facility] ter Address [address] [place] [address]- Care Team Providers Care Desktop Operator Name Role Phone Maycol CORTEZ, Bashir Oquendo Primary Care Physician Encounter [facility] Date(s): 05/23/22 - 05/24/[address] [address] Discharge Disposition: A-Transfer VNA/Home Health Attending Physician: Laith Gordon MD Admitting Physician: Laith Gordon MD Referring Physician: Laith Gordon MD Allergies, Adverse Reactions, Alerts No Known Allergies Immunizations Not Given Vaccine Date Status Refusal Reason pneumococcal 23-valent vaccine 1 06/24/15 Not Give n Patient Refuses 1Result Comment: Pt refused - states will take in few weeks Medications Acetaminophen Tablet 650 mg, Tablet, By Mouth, 05/24/22 5:00:00 EDT Start Date: 05/24/22 Stop Date: 05/24/22 Status: Completed amitriptyline 25 mg oral tablet 1 tablet = 25 mg, By Mouth, Daily at bedtime, 0 Refills, Maintenance, 06/19/15 2:25:58 Start Date: 06/19/15 Status: Ordered apixaban 2.5 mg oral tablet 1 tablet = 2.5 mg, By Mouth, 2 times a day, # 14 tablet, 0 Refills, Maintenance, 05/24/22 9:16:00 EDT, Tablet, [facility], Partial fill upon patient request if the prescription is for aschedule II opioid drug., 173, cm, 05/24/22 3:48:00... Start Date: 05/24/22 Stop Date: 05/31/22 Status: Ordered apixaban 5 mg oral tablet = 5 mg, By Mouth, 2 times a day, # 120 tablet, 4 Refills, Maintenance, 06/02/18 10:11:16 EDT, Tablet Start Date: 06/02/18 Stop Date: 03/29/19 Status: Ordered Aspirin = 81 mg, By Mouth, Daily, 0 Refills, Maintenance, 06/19/15 2:29:04 Start Date: 06/19/15 Status: Ordered Colace Capsule 100 mg, 1, capsule, By Mouth, 2 times a day, PRN, Refills 0, Maintenance, as needed for constipation, 05/24/22 9:21:00 EDT, Partial fill upon patient request if the prescription is for a schedule II opioid drug. Start Date: 05/24/22 Status: Ordered Lipitor 80 mg oral tablet 1 tablet = 80 mg, By Mouth, Daily, # 60 tablet, 4 Refills, Maintenance, Tablet, Route to Pharmacy Electronically, [id number], [id number] Start Date: [...] EDT, Tablet Start Date: 06/02/18 Status: Ordered MiraLax Powder 1 pack/packet = 17 Gm, By Mouth, Daily, PRN Constipation, 0 Refills, Maintenance, 05/24/22 9:21:00 EDT, Powder, Partial fill upon patient request if the prescription is for a schedule II opioid drug. Start Date: 05/24/22 Status: Ordered omeprazole 40 mg oral enteric coated capsule = 40 mg, By Mouth, Daily, # 60 capsule, 3 Refills, Maintenance, 06/02/18 10:13:04 EDT, Suspension Start Date: 06/02/18 Status: Ordered sotalol 80 mg oral tablet 80 mg, 1, tablet, By Mouth, 2 times a day, This was increased to 80mg BID at [place]., # 120 tablet, Refills 4, Tot. Refills 4, Maintenance, 06/02/18 10:11:35 EDT, Route to Pharmacy Electronically, [id number], [facility] Start Date: 06/02/18 Stop Date: 10/30/18 Status: Ordered traMADol 50 mg oral tablet See Instructions, PRN Pain , Mild, 1-2 tablet By Mouth Every 6 hours not to exceed 400 mg/day, # 56tablet, 0 Refills, Acute 05/31/22 8:00:00 EDT, 05/24/22 9:39:00 EDT, Tablet, [facility], Partial fill upon patient request if the prescr... Start Date: 05/24/22 Stop Date: 05/31/22 Status: Ordered Tramadol Tablet 100 mg, Tablet, By Mouth, Every 4 hours, PRN for Pain , Moderate, Routine, 05/23/22 10:57:00 EDT Start Date: 05/23/22 Stop Date: 05/24/22 Status: Discontinued Tylenol Caplet Extra Strength = 1,000 mg, By Mouth, 2 times a day, 0 Refills, Maintenance, 06/19/15 2:30:51 Start Date: 06/19/15 Status: Ordered Problem List Condition Confirmation Course Effective Dates Status H ealth Status Informant NSTEMI (non-ST elevated myocardial infarction) Confirmed Active Atrial fibrillation Confirmed Active Hypertension Confirmed Active Leg edema Confirmed Active Acid reflux disease Confirmed Active Hyperlipidemia Confirmed Active Current use of intermission coordinator anticoagulation Confirmed Active Diabetic neuropathy Confirmed Active Obese class I Confirmed Active Type 2 diabetes mellitus Confirmed Active Results Radiology Reports * Exam Date Time Procedure Performing Provider Status 05/23/22 10:55 PM Knee 1 or 2 Views Left Abimael Pérez ; Shani (Verified) Notes: (Knee 1 or 2 Views Left) Reason For Exam: Postop;Postop RESULT: Knee 1 or 2 Views Left Knee 1 or 2 Views Left INDICATION: Postop knee replacement COMPARISON: None. FINDINGS: Distal femoral and proximal tibial metallic components are in typical position. No periprosthetic fracture. Soft tissue emphysema, but no unexpected soft tissue findings. IMPRESSION: Typical postoperative appearance. WSN: [id number] Ordering Physician: Kevyn Bennett Dictated By: Rom Levy MD Dictated Date/Time: 05/23/22 10:58 p Reviewed By: Rom Levy MD Signed By: Rom Levy MD Signed Date/Time: 05/23/22 10:58 pm Transcribed By: CSJuan Transcribed Date/Time: 05/23/22 10:58 pm Vital Signs Most recent to oldest [Reference Range]: 1 2 3 Height 173 cm (05/24/22 3:48 AM) 173 cm (05/24/22 12:30 AM) 173 cm (05/23/22 6:41 PM) Weight 100.45 kg (05/23/22 6:02 AM) Oxygen Saturation [94-100 %] 98 % (05/24/22 6:43 AM) 95 % (05/24/22 3:48 AM) 97 % (05/24/22 12:30 AM) Pulse Rate [55-90 bpm] 57 bpm (05/24/22 6:43 AM) 54 bpm *L* (05/24/22 3:48 AM) 88 bpm (05/24/22 12:30 AM) Body Mass Index [18.5-24.99 kg/m2] 33.56 kg/m2 *>HHI* (05/23/22 6:02 AM) Blood Pressure [90-138/55-84 mm Hg] 127/61mm Hg (05/24/22 6:43 AM) 120/60mm Hg (05/24/22 3:48 AM) 153/76mm Hg *H* (05/24/22 12:30 AM) Respiratory Rate [16-30 br/min] 20 br/min (05/24/22 7:56 AM) 20 br/min (05/24/22 7:56 AM) 16 br/min (05/24/22 6:43 AM) Temperature [96.8-100.4 DegF] 97.6 DegF (05/24/22 6:43 AM) 97.4 DegF (05/24/22 3:48 AM) 97.2 DegF (05/24/22 12:30 AM) Liters per Minute 6 L/min (05/23/22 10:45 AM) 6 L/min (05/23/22 10:30 AM) 3 L/min (05/23/22 8:25 AM) Mode of Delivery (Oxygen) Room air (05/24/22 6:43 AM) CPAP (05/24/22 3:48 AM) CPAP (05/24/22 12:30 AM) Blood pressure sites Arm, right (05/23/22 4:06 PM) Arm, right (05/23/22 11:28 AM) Arm, right (05/23/22 11:15 AM) Temperature Route Oral (05/24/22 6:43 AM) Oral (05/24/22 3:48 AM) Oral (05/24/22 12:30 AM) Dry Weight 100.45 kg (05/23/22 7:45 AM) 100.45 kg (05/23/22 6:02 AM) Dry Weight Obtained Via Bed scale (05/23/22 7:45 AM) Social History Social History Type Response Tobacco Other: Former smoker . Sex XR Knee - left 1 or 2 Views * BHSPowerscribe , CIS S: TRANSCRIBE Rom Levy MD S: VERIFY Event Display: Result: Authored Date: Knee 1 or 2 Views Left INDICATION: Postop knee replacement COMPARISON: None. FINDINGS: Distal femoral and proximal tibial metallic components are in typical position. No periprosthetic fracture. Soft tissue emphysema, but no unexpected soft tissue findings. IMPRESSION: Typical postoperative appearance. WSN: [id number] Ordering Physician: Kevyn Bennett Dictated By: Rom Levy MD Dictated Date/Time: 05/23/22 10:58 p Reviewed By: Rom Levy MD Signed By: Rom Levy MD Signed Date/Time: 05/23/22 10:58 pm Transcribed By: LEAH Transcribed Date/Time: 05/23/22 10:58 pm Patient Care team information Personnel Name: Bashir Severino MD Address: Address: [address] [place] [address], [address]
--- OUTSIDE RECORDS SUMMARY | 2024-05-29 09:44 | XMS_ITS | Continuity of Care Document ---
Author Organization [facility] Address [address] [place] [address]- Care Team Providers Care Lance Crewmember Name Role Phone Maycol CORTEZ, Bashir Oquendo Primary Care Physician Encounter 05/25/22 - 05/31/22 [facility] [address] [place] [address]- Discharge Disposition: GOALS MET Allergies, Adverse Reactions, Alerts No Known Allergies [...] 0 Refills, Maintenance, 05/24/22 9:16:00 EDT, Tablet, [facility], Partial fill upon patient request [...] Refills, Maintenance, Tablet, Route to Pharmacy Electronically, [id number], [facility] Start Date: [...] This was increased to 80mg BID at [place]., # 120 tablet, Refills 4, Tot. Refills 4, Maintenance, 06/02/18 10:11:35 EDT, Route to Pharmacy Electronically, [id number], [facility] Start Date: 06/02/18 [...] Active Hyperlipidemia Confirmed Active Current use of termite control technician anticoagulation Confirmed Active Diabetic neuropathy Confirmed Active Obese class I Confirmed Active Type 2 diabetes mellitus Confirmed Active Social History Social History Type Response Tobacco Other: Former smoker . Sex Patient Care team information Personnel Name: Bashir Severino MD Address: Address: [address] [place] [address], [address] [place] [id number]
--- OUTSIDE RECORDS SUMMARY | 2024-05-29 09:44 | XMS_ITS ---
Author Organization [facility] [place] Address [address] [place] [address] Care Team Providers Care Seating Upholsterer Name Role Phone Maycol CORTEZ, Bashir Primary Care Provider Unavailab Rom Rose Unavailable [phone] REASON FOR VISIT At Risk Footcare MEDICATIONS Medication SIG (Take, Route, Frequency, Duration) Notes Start Date End Date Status Extra Depth Orthopedic Shoes (1 Pair) with Customized Heat Molded Multidensity Innersoles (3 Pair) as directed Dx: NIDDM/Polyneuropath y (E11.42), Hammertoe Foot Deformity (M20.41,M20.42), Preulcerative Skin Lesion(s) (L85.1 11/21/2023 Active Nystop 213356 UNIT/GM External Not-Taking hydroCHLOROthiazide 25 MG 1 tablet Oral Not-Taking traMADol HCl prn Not-Anuel ing Lyrica 50 MG Orally once in morning Not-Taking Omeprazole 40 MG 1 capsule Orally Once a day Active Sotalol HCl 80 MG 1 tablet Oral every 12 hrs Active Tylenol 1000mg bid Active metFORMIN HCl Active Multivitamins Orally 01/27/2014 Activ e Lyrica 100 MG 1 capsule Orally once at night Active Eliquis Active Glucosamine Active Indomethacin prn Active Loratadine 10 MG 1 tablet Orally Once a day 01/27/2014 Active Amitriptyline HCl 25 MG Orally Active Clopidogrel Bisulfate 75 MG Orally Active Clear Eyes for Dry Eyes Active Co Enzyme Q-10 Activ e Amoxicillin 500 MG 1 tablet Oral as needed for dental appts PRN-Dental Active Aspirin 81 MG 1 tablet Orally Once a day 01/27/2014 Active Atorvastatin Calcium 80 MG 1 tablet Orally Active amLODIPine Besylate 2.5 MG Oral for 30 Active SOCIAL HISTORY Tobacco Use: Social History [...] Ordered Date Performed Result Body Sit e 11704-WLIMVMG NAIL, 6 OR MORE 02/20/2024 N/A 37379-SGFU SKIN LESIONS, OVER 4 02/20/2024 N/A Encounters Encounter Location Date Provider Diagnosis [facility] [address] [address] 02/20/2024 Rom Pollock Type 2 diabetes mellitus with diabetic polyneuropathy E11.42 and Tinea unguium B35.1 ASSESSMENTS Encounter Date Diagnosis Assessment Notes Treatment Notes Treatment Clinical Notes 02/20/2024 Type 2 diabetes mellitus with diabetic polyneuropathy (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.42) 02/20/2024 Tinea unguium (ICD-1 0 - B35.1) PLAN OF TREATMENT Pending Test Test Name Order Date 88701-WEGCWWX NAIL, 6 OR MORE 02/20/2024 19623-LANJ SKIN LESIONS, OVER 4 02/20/20 24 Next Appt Details Follow Up: prn, Reason: Provider Name:Rom Pollock , 06/04/2024 10:45:00 AM, [address] [place] [address], [phone], Procedure Notes * Category Sub-Category Detail Notes Debride Nail 6-10 Nail debridement Nail debridem ent performed extensively to reduce/remove overall nail length, girth, thickness, subungual debris, and necrotic tissue, by manual and electrical means through the use of a nail nipper and/or dremel, to more viable healthy nail plate or bed tissue 1-5. Silver nitrate used for any petechial bleeding as necessary. Patient chooses, no pharmaceutical tx (66332) Keratoma Treatment Parring or Cutting o f Benign Hyperkeratotic Lesion(s) 77594 ( >4 Lesions) - The Benign hyperkeratotic [...] footcare Pt States Last PCP Visit: Date: 01/16
--- OUTSIDE RECORDS SUMMARY | 2024-05-29 09:44 | XMS_ITS | Continuity of Care Document ---
Author Organization [facility] Address [address] [place] [address]- Care Team Providers Care Flight Physician Name Role Phone Maycol CORTEZ, Bashir Oquendo Primary Care Physician Encounter [facility] Date(s): 04/05/22 - 06/04/[address] [address] Attending Physician: Laith Gordon MD Admitting Physician: [...] 0 Refills, Maintenance, 05/24/22 9:16:00 EDT, Tablet, [facility], Partial fill upon patient [...] Refills, Maintenance, Tablet, Route to Pharmacy Electronically, [id number], [facility] Start Date: [...] This was increased to 80mg BID at [place]., # 120 tablet, Refills 4, Tot. Refills 4, Maintenance, 06/02/18 10:11:35 EDT, Route to Pharmacy Electronically, [id number], [facility] Start Date: 06/02/18 [...] Active Hyperlipidemia Confirmed Active Current use of detention anticoagulation Confirmed Active Diabetic neuropathy Confirmed Active Obese class I Confirmed Active Type 2 diabetes mellitus Confirmed Active Social History Social History Type Response Tobacco Other: Former smoker . Sex Patient Care team information Personnel Name: Maycol CORTEZ, Bashir Oquendo Address: Address: [address] [place] [address], [address] [place], [place] [address]
--- OUTSIDE RECORDS SUMMARY | 2024-05-29 09:44 | XMS_ITS ---
Author Organization [facility] miguel [place] Address [address] [place] [address] Care Team Providers Care Economic Research Analyst Name Role Phone Maycol CORTEZ, Bashir Primary Care Provider Unavailab Rom Rose Unavailable [phone] ALLERGIES No Known Allergies REASON FOR VISIT At Risk Footcare, Toe Irritation MEDICATIONS Medication SIG (Take, Route, Frequency, Duration) Notes Start Date End Date Status Amoxicillin 500 MG 1 tablet Oral as needed for dental appts PRN-Dental Active Clopidogrel Bisulfate 75 MG Orally Active Amitriptyline HCl 25 MG Orally Active Co Enzyme Q-10 Activ e Clear Eyes for Dry Eyes Active amLODIPine Besylate 2.5 MG Oral for 30 Active Lyrica 50 MG Orally once in morning Not-Taking Extra Depth Orthopedic Shoes (1 Pair) with Customized Heat Molded Multidensity Innersoles (3 Pair) as directed Dx: NIDDM/Polyneuropath y (E11.42), Hammertoe Foot Deformity (M20.41,M20.42), Preulcerative Skin Lesion(s) (L85.1 11/21/2023 Active Atorvastatin Calcium 80 MG 1 tablet Orally Active Aspirin 81 MG 1 tablet Orally Once a day 01/27/2014 Active Sotalol HCl 80 MG 1 tablet Oral every 12 hrs Active Nystop 777879 UNIT/GM External Not-Taking Tylenol 1000mg bid Active traMADol HCl prn Not-Anuel ing hydroCHLOROthiazide 25 MG 1 tablet Oral Not-Taking Multivitamins Orally 01/27/2014 Activ e metFORMIN HCl Active Omeprazole 40 MG 1 capsule Orally Once a day Active Loratadine 10 MG 1 tablet Orally Once a day 01/27/2014 Active Lyrica 100 MG 1 capsule Orally once at night Active Indomethacin prn Active Glucosamine Active Eliquis Active SOCIAL HISTORY Tobacco Use: Social History [...] SIGNS Height 5 ft 8 in in 11/21/2023 Weight 220 lbs 11/21/2023 BMI 33.45 kg/m2 11/21/2023 PROCEDURES Procedure Date Ordered Date Performed Result Body Sit e 23306-XZBYLZL NAIL, 6 OR MORE 11/21/2023 N/A 26458-ISKN SKIN LESIONS, OVER 4 11/21/2023 N/A Encounters Encounter Location Date Provider Diagnosis [facility] [address] [address] 11/21/2023 Rom Pollock Type 2 diabetes mellitus with diabetic polyneuropathy E11.42 ; Onychomycosis B35.1 ; Other hammer toe(s) (acquired), right foot M20.41 and Other hammer toe(s) (acquired), left foot M20.42 ASSESSMENTS Encounter Date Diagnosis Assessment Notes Treatment Notes Treatment Clinical Notes 11/21/2023 Type 2 diabetes mellitus with diabetic polyneuropathy (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.42) 11/21/2023 Onychomycosis (ICD-1 0 - B35.1) 11/21/2023 Other hammer toe(s) (acquired), right foot (ICD-10 - M20.41) Patient Educated with: DIABETIC FOOT CARE INSTRUCTIONS.pdf (DIABETIC FOOT CARE INSTRUCTIONS.pdf ) 11/21/2023 Other hammer toe(s) (acquired), left foot (ICD-10 - M20.42) PLAN OF TREATMENT Medication Medication Name Sig Start Date Stop Date Notes Extra Depth Orthopedic Shoes (1 Pair) with Customized Heat Molded Multidensity Innersoles (3 Pair) as directed Dx: NIDDM/Polyneuropathy (E11.42), Hammertoe Foot Deformity (M20.41,M20.42), Preulcerative Skin Lesion(s) (L85.1 11/21/2023 Treatment Notes Assessment Notes Other hammer toe(s) (acquired), right fo ot Patient Educated with: DIABETIC FOOT CARE INSTRUCTIONS.pdf (DIABETIC FOOT CARE INSTRUCTIONS.pdf) Pending Test Test Name Order Date 55608-SJYEDOC NAIL, 6 OR MORE 11/21/2023 22973-LKVN SKIN LESIONS, OVER 4 11/21/19 24 Next Appt Details Follow Up: prn, Reason: Provider Name:Rom Pollock , 06/04/2024 10:45:00 AM, [address] [place] [address], [phone], Procedure Notes * Category Sub-Category Detail Notes [...] as necessary. Patient chooses, no pharmaceutical tx (34672) Keratoma Treatment Parring or Cutting o f Benign Hyperkeratotic Lesion(s) 96679 ( >4 Lesions) - The Benign hyperkeratotic [...] B/L , SUB MTH (s), 5, B/L Orthopedic FOOT MORPHOLOGY: Pes Planus stru cture , (-) Charcot collapse/destruction noted at MTJ FOOTWEAR: worn, OT were inspec ady and noted to be severely worn , in poor condition not giving proper support at the present time , shoe gear properties exacerbate patient's foot/toe deformity DIGITAL DEFORMITIES: Digital contracture , PIPJ, 2-5 B/L, incompl-reducible to push-up test, no over, nor underlapping, with evidence of shoe producing skin irritation MUSCLE STRENGTH: 5/5 all groups in a symmetrical fashion , B/L General Examination GENERAL APPEARANCE: Reveals a pleasant, alert, well nourished, well developed, well hydrated individual, who demonstrates proper attention to hygiene/body habitus, and is in no acute distress , Pt serves as own historian for office visit today FOOT EXAM: Lower Extremity Neurological Exa m performed:: Yes ORIENTED: person, place, and t choco Footwear Evaluation Footwear Evaluation performe d:: Yes Ophthalmology Referral DIABETES EYE EXAM Diabetic Reti nopathy Screening:: Yes Findings of Diabetic Eye Exam:: retinopa thy Vascular DP PULSES(B): 1/4, B/L PT PULSES(B): 1/4, B/L CAPILLARY FILL TIME: 3 secs. per digit, B/L TEMPERTURE GRADIENT(C): decreased, cool to cool, proximal to distal, B/L TROPHIC CONDITION-TEXTURE/ELASTICITY/TURGOR/HAIR GROWTH(B): decreased, B/L EDEMA(C): 2/4, non-pitting, wi thout aching pain, B/L, Ankle(s) PIGMENTATION: mottled, B/L Nails NAILS are: Elongated, overg rown, dystrophic, lytic, greater than 3mm thick, discolored and friable with crumbly malodorous subungual debris, 1-5 B/L History and Physical Notes * HPI (History of Present Illness) Category Sub-Category Detail Notes Toe pain Location: B/L feet Duration: several years Course: worse Aggravated by: shoes, any pressure Treatments: change in shoes At Risk footcare Pt States Last PCP Visit: Date: 08/17
--- OUTSIDE RECORDS SUMMARY | 2024-05-29 09:45 | XMS_ITS ---
Author Organization [facility] Address [address] [place] [address] Care Team Providers Care Loft Rigger Name Role Phone Bashir Severino MD Primary Care Provider Unavailab dawit Soni Jr, Jayme Cantu [phone] REASON FOR VISIT ov recall Encounters Encounter Location Date Provider Diagnosis [facility] [address] [place] [address] [address] [place] [address] 05/17/2023 Jayme Soni Jr PLAN OF TREATMENT Next Appt Details Provider Name:Jayme barakat Jr, 06/24/2024 10:20:00 AM, [address] [place] [address], [address], [place], [address],
--- OUTSIDE RECORDS SUMMARY | 2024-05-29 09:45 | XMS_ITS | Continuity of Care Document ---
Author Organization [facility] Address [address] [place] [address]- Care Team Providers Care Esthetician/Spa Coordinator Name Role Phone Maycol CORTEZ, Bashir Oquendo Primary Care Physician Encounter [id number] Date(s): 05/11/22 - 06/10/22 [facility] [address] [place], [place] [address] Attending Physician: Tara Raphael Admitting Physician: Tara Raphael Referring Physician: AdmtrTara Allergies, Adverse Reactions, Alerts No Known Allergies [...] 0 Refills, Maintenance, 05/24/22 9:16:00 EDT, Tablet, [facility], Partial fill upon patient [...] Refills, Maintenance, Tablet, Route to Pharmacy Electronically, [id number], [facility] Start Date: [...] This was increased to 80mg BID at [place]., # 120 tablet, Refills 4, Tot. Refills 4, Maintenance, 06/02/18 10:11:35 EDT, Route to Pharmacy Electronically, [id number], [facility]... Start Date: 06/02/18 [...] Active Hyperlipidemia Confirmed Active Current use of senior living anticoagulation Confirmed Active Diabetic neuropathy Confirmed Active Obese class I Confirmed Active Type 2 diabetes mellitus Confirmed Active Social History Social History Type Response Tobacco Other: Former smoker . Sex Patient Care team information Care Team Personnel Name: Kristi Walter RN Position: S RN Member Role: Primary Care Nurse Name: Kaila Noyola RN Position: [facility] SN RN Member Role: Primary Care Nurse Name: Abbey Medina RN Position: S RN Member Role: Primary Care Nurse Name: Bashir Severino MD Position: Reference Physician Member Role: PCP Address: Address: [address] [place] [address], [address] [place] [address] Name: Jermaine Delgadillo RN Position: S RN Member Role: Primary Care Nurse Name: Joseph Araujo MD Position: [facility] Cardiology MD Member Role: Lifetime Consulting Physician Address: Address: [address] [place] [address] [facility] [place] [address]- Name: Shona Sanchez RN Position: S RN Member Role: Primary Care Nurse Name: Beena Boucher RN Position: S RN Member Role: Primary Care Nurse Care Team Related Persons Name: CHARLY HERMOSILLO Address: home [address] [place] [address]
--- OUTSIDE RECORDS SUMMARY | 2024-05-29 09:45 | XMS_ITS | Continuity of Care Document ---
Author Organization [facility] Address [address] [place] [address]- Care Team Providers Care Skidder Loader Name Role Phone Maycol CORTEZ, Bashir Oquendo Primary Care Physician [phone] Encounter [facility] Date(s): 04/11/22 - 04/22/[address] [address] Attending Physician: Laith Gordon MD Allergies, Adverse Reactions, [...] Maintenance, 06/02/18 10:11:29 EDT,Route to Pharmacy Electronically, [id number], [facility] Start Date: 06/02/18 Stop Date: 10/30/18 Status: Ordered Lipitor 80 mg oral tablet 1 tablet = 80 mg, By Mouth, Daily, # 60 tablet, 4 Refills, Maintenance, Tablet, Route to Pharmacy Electronically, [id number], [facility] Start Date: [...] EDT, Tablet Start Date: 06/02/18 Status: Ordered [facility] Rx Refills 0, Maintenance, multivitamins, Coenzyme Q, Glucosamine and other nmul-vfj-fpdtlea supplements., 05/13/18 21:10:26 EDT, Compound Start Date: 05/13/18 Status: Ordered omeprazole 40 mg oral enteric coated capsule = 40 mg, By Mouth, Daily, # 60 capsule, 3 Refills, Maintenance, 06/02/18 10:13:04 EDT, Suspension Start Date: 06/02/18 Status: Ordered sotalol 80 mg oral tablet 80 mg, 1, tablet, By Mouth, 2 times a day, This was increased to 80mg BID at [place]., # 120 tablet, Refills 4, Tot. Refills 4, Maintenance, 06/02/18 10:11:35 EDT, Route to Pharmacy Electronically, [id number], [facility]... Start Date: 06/02/18 [...] Previous treatment: None entered on: 06/19/15 Sex Care Team Personnel Name: Maycol CORTEZ, Bashir Oquendo Address: [address] [place] [address], [address] [place] [address]
--- OUTSIDE RECORDS SUMMARY | 2024-05-29 09:45 | XMS_ITS | Patient Health Record ---
Author Organization [facility] Address [address] [place] [address] Care Team Providers Care Belt Measurer Name Role Phone Bashir Severino MD Primary Care Provider Unavailab Jayme Guzman Jr Unavailable ALLERGIES No Known Allergies REASON FOR REFERRAL No Information MEDICATIONS Medication SIG (Take, Route, Frequency, Duration) Notes Start Date End Date Status traMADol HCl 50 MG 1 tablet as needed Orally TID/prn Active metFORMIN HCl 500 MG 1 tablet with a chaka l Orally Once a day Active Glucosamine 500 MG 2 capsule with a chaka l Orally QAM Active Atorvastatin Calcium 40 MG 1 tablet Orally Once a day Active Versatile Cream Base - as directed Externally Active Betamethasone Combo PF Active tylenol 1 tab Oral for 14 days 1000 mg bid Active Ranibizumab 0.1 mg A ctive Tylenol 500 mg BID Activ e Ciclopirox Olamine 0.77 % 1 application to affected area Externally Twice a day/prn Active Betamethasone 10 mg knee pain Active Eye Health Formula 1 1 PO QD Active Indomethacin 25 MG 1 capsule with food or milk Orally prn Active Sotalol HCl 80 MG 1 tablet Orally once a day Active Lyrica 100 MG 1 capsule Orally Onc e a day Active Apixaban 5 MG 1 Orally BID Act sheila Plavix 75 MG Orally Active Loratadine 10 MG Orally Act sheila Eye Vitamins & Minerals Active Omeprazole 40 MG 1 capsule Orally Onc e a day 04/14/2012 Active Amitriptyline HCl 25 MG 1 tablet Orally Once a day Active CoQ10 100 MG 1 capsule with a chaka l Orally Once a day Active Aspirin 81 MG 1 tablet Orally Once a day Active Claritin 10 MG 1 tablet Orally Once a day Active Multi Vitamin/Minerals - 1 Orally QD Active amLODIPine Besylate 5 MG Oral for 90 Active IMMUNIZATIONS Vaccine Route Administration Date Status Comme nts Influenza Unknown 04/03/2018 Administered Influenza Unknown 03/31/2019 Administered Influenza Unknown 05/13/2020 Administered Influenza Unknown 06/22/2021 Administered Influenza Unknown 05/10/2022 Administered SOCIAL HISTORY Sex Assigned At : Social History Observation Description Sex Assigned At Unknown PROBLEMS Problem Type ICD Code Onset Dates Problem Status W/U Status Risk SNOMED Code Notes Problem Colon cancer screening (Z12.11) Active confirmed 860758892 Problem Gastro-esophageal reflux disease with esophagitis (K21.0) Active confirmed 724777701 Problem Osorio's esophagus without dysplasia (K22.70) Active confirmed 079302670 Problem Rectal urgency (R15.2) Active confirmed 32658278 Problem Throat pain (R07.0) Active confirmed 16 0599594 Problem Diarrhea, unspecified type (R19.7) Active confirmed 27529473 Problem Gastroesophageal reflux disease with esophagitis, unspecified whether hemorrhage (K21.00) Active confirmed Gastroes ophageal reflux disease with esophagitis (disorder) (714792086) PLAN OF TREATMENT Future Test Test Name Order Date UPPER GI ENDOSCOPY 11/14/2012 COLONOSCOPY 01/27/2016 Next Appt Details Provider Name:Jayme barakat , 06/24/2024 10:20:00 AM, [address] [place] [address], [address], [place], [address], Insurance Providers Payer Name Payer Address Payer Phone Subscriber Number Group Number Insured Name Patient Relationship to Insured Coverage Start Date Coverage End Date [facility] [address] [place] [phone] [id number] TERRI HERMOSILLO Self - patient is the insured MEDICAL (GENERAL) HISTORY Medical History History ICD Code Hypertension coronary artery disease and stent placem ent esophageal reflux fibromyalgia osteoarthritis leukopenia degenerative joint disease with hip repl acement BPH elevated triglycerides common bile duct stones paroxysmal atrial fibrillation Osorio's esophagus, upper e ndoscopy 11/25/15, 2 cm Osorio's, biopsies without dysplasia. colonoscopy 2011, diverticulosis neuropathy Surgical History Surgery Date(Month/Year) Hip replacement right and left stent placement x3 ERCP laparoscopic cholecystectomy right knee
--- OUTSIDE RECORDS SUMMARY | 2024-05-29 09:45 | XMS_ITS ---
Author Organization [facility] Address [address] [place] [address] Care Team Providers Care Enterprise Resource Planning Consultant Name Role Phone Bashir Severino MD Primary Care Provider Unavailab Jayme Guzman Jr Unavailable ALLERGIES No Known Allergies REASON FOR VISIT Patient presents today for reflux,barretts esophagus MEDICATIONS Medication SIG (Take, Route, Frequency, Duration) Notes Start Date End Date Status Plavix 75 MG Orally Active Loratadine 10 MG Orally Act sheila Eye Vitamins & Minerals Active Tylenol 500 mg BID Activ e amLODIPine Besylate 5 MG Oral for 90 Active Ranibizumab 0.1 mg A ctive Ciclopirox Olamine 0.77 % 1 application to affected area Externally Twice a day/prn Active Betamethasone 10 mg knee pain Active Eye Health Formula 1 1 PO QD Active Indomethacin 25 MG 1 capsule with food or milk Orally prn Active traMADol HCl 50 MG 1 tablet as needed Orally TID/prn Active metFORMIN HCl 500 MG 1 tablet with a chaka l Orally Once a day Active Glucosamine 500 MG 2 capsule with a chaka l Orally QAM Active Atorvastatin Calcium 40 MG 1 tablet Orally Once a day Active Apixaban 5 MG 1 Orally BID Act sheila Omeprazole 40 MG 1 capsule Orally Onc e a day 04/14/2012 Active Amitriptyline HCl 25 MG 1 tablet Orally Once a day Active CoQ10 100 MG 1 capsule with a chaka l Orally Once a day Active Aspirin 81 MG 1 tablet Orally Once a day Active Multi Vitamin/Minerals - 1 Orally QD Active Versatile Cream Base - as directed Externally Active Claritin 10 MG 1 tablet Orally Once a day Active Sotalol HCl 80 MG 1 tablet Orally once a day Active Lyrica 100 MG 1 capsule Orally Onc e a day Active Betamethasone Combo PF Active tylenol 1 tab Oral for 14 days 1000 mg bid Active PROBLEMS Problem Type ICD Code Onset Dates Problem Status W/U Status Risk SNOMED Code Notes Problem Gastroesophageal reflux disease with esophagitis, unspecified whether hemorrhage (K21.00) Active confirmed Gastroes ophageal reflux disease with esophagitis (disorder) (699261731) VITAL SIGNS BMI 34.14 kg/m2 05/17/2023 Blood pressure systolic 000 mm Hg 05/17/20 23 Blood pressure diastolic 00 mm Hg 023 Height 67 in 05/17/2023 Temperature 98.2 degrees Fahrenheit 05/17/20 23 Weight 218 lbs 05/17/2023 Encounters Encounter Location Date Provider Diagnosis [facility] [address] [facility] [address] [place] [address] 05/17/2023 Jayme Soni Jr Osorio's esophagus without dysplasia K22.70 and Gastro-esophageal reflux disease with esophagitis K21.0 ASSESSMENTS Encounter Date Diagnosis Assessment Notes Treatment Notes Treatment Clinical Notes 05/17/2023 Osorio's esophagus without dysplasia (ICD-10 - K22.70) Osorio esophagus material was printed 05/17/2023 Gastro-esophageal reflux disease with esophagitis (ICD-10 - K21.0) PLAN OF TREATMENT Treatment Notes Assessment Notes Osorio's esophagus without dysplasia Ba rrett esophagus material was printed Next Appt Details Follow Up: 1 Year, Reason: Provider Name:Jayme barakat Jr, 06/24/2024 10:20:00 AM, [address] [facility], [address], [place], [address],
== END 2024-05-29 10:13 | disposition home or self-care (01) ==
LOC: HO.HCS 09:42
PROVIDERS: PCP Family Medicine; Visit Provider Internal Medicine Cardiovascular Disease
DX: I48.0 Paroxysmal atrial fibrillation (principal); I20.89 Other forms of angina pectoris; I10 Essential (primary) hypertension
CPT/HCPCS: 93010; 99214

== ENCOUNTER → 2024-05-29 09:42 | Outpatient (BNVA) | payer MEDICARE, SELFPAY | PROVIDERS: PCP Family Medicine; Visit Provider Internal Medicine Cardiovascular Disease | DX: I48.0 Paroxysmal atrial fibrillation (principal); I20.89 Other forms of angina pectoris; I10 Essential (primary) hypertension | CPT/HCPCS: 93005; 99212 ==

== ENCOUNTER 2024-06-21 11:10 | Outpatient (AMB) | payer MEDICARE, SELFPAY ==
--- NOTE | 2024-06-21 11:26 | HO.NEPHOV_ITS ---
Vital Signs 06/21/24 11:29 Height 5 ft 8 in Weight 236 lb BMI 35.9 BP 132/62 Blood Pressure Location Lt brachial Position Sitting Pulse 60 Pulse Source Pulse Oximeter Pulse Oximetry (%) 96 Oxygen Delivery Method Room Air Intake Visit Reasons: Progressive Renal Insufficiency/ Conf Utility Bill Complaints Investigator Required: No Accompanied by: Spouse Allergies No Known Allergies Allergy (Verified 06/21/24 11:29) HPI Comments Details: I had the pleasure of seeing Richard accompanied by his for worsening renal function. He is 84 years of age with Diabetes for a long time. His blood sugar has been poorly controlled. He still is on metformin and not on any SGLT2 i. He has CAD as well as hypertension. He carried a diagnosis of diabetic nephropathy. He denied any new bone or back pain. His BP has been well controlled. He denies taking excess NSAID's. He denied any nephrotic range proteinuria or cardiomyopathy. He denies any epistaxis, photosensitivity, hematuria, sinusitis, hemoptysis, new skin rashes or joint swelling. His recent serum creatinine was 1.99 [facility], [facility] Medical History (Updated 06/27/24 @ 12:40 by Mars Rodas MD) Other fatigue Other idiopathic peripheral autonomic neuropathy Essential (primary) hypertension Gastro-esophageal reflux disease without esophagitis Intrinsic (allergic) eczema Pruritus, unspecified Benign prostatic hyperplasia without lower urinary tract symptoms Type 2 diabetes mellitus with diabetic nephropathy Venous insufficiency (chronic) (peripheral) Chronic kidney disease, stage 3a Atherosclerotic heart disease of [place] coronary artery without angina pectoris Type 2 diabetes mellitus with diabetic polyneuropathy Obstructive sleep apnea (adult) (pediatric) Impacted cerumen of both ears Essential tremor Ventricular premature depolarization Pure hyperglyceridemia Pure hypercholesterolemia, unspecified Pain in right knee Hyperkalemia Acute metabolic acidosis Ataxic gait Hypertension PAF (paroxysmal atrial fibrillation) Stable angina Surgical History Hx of cholecystectomy History of cardiac cath History of total right knee replacement History of hip surgery Family History Father No problems noted. Mother No problems noted. Social History Alcohol intake: current Alcohol intake frequency: holidays/special occasions only Patient Tobacco Use Status: Former Tobacco user Years Smoked: 5 +/- Review of Systems Const All systems reviewed & are unremarkable except as noted in HPI and below Physical Exam Vital Signs: Last Vital Signs Pulse 60 06/21/24 11:29 BP 132/62 06/21/24 11:29 Pulse Ox 96 06/21/24 11:29 Oxygen Delivery Method Room Air 06/21/24 11:29 BMI result Body Mass Index 35.9 Const General: comfortable and no acute distress Orientation/consciousness: patient oriented x3 HEENT Head: Yes normocephalic Mouth: Normal oral and palatal mucosa present Eyes EOM: EOMs intact bilaterally Neck Neck: Yes supple Resp Auscultation: clear to auscultation bilaterally Cardio Jugular venous distension: no JVD Rate: regular rate GI Palpation (GI): Soft to palpation Auscultation: normal bowel sounds General: Yes no CVA tenderness Back/Spine/Pelvis Back: no CVA tenderness Skin General skin exam: no rashes or lesions noted Neuro General: patient oriented x3 and moves all extremities Extrem General: Yes no pedal edema Results Reviewed Nephrology Results: No Data to Display Assessment & Plan Assessment & Plan (1) Hypertension: Code(s): I10 - Essential (primary) hypertension Category: Medical Qualifiers: Hypertension type: primary hypertension Qualified Code(s): I10 - Essential (primary) hypertension (2) 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 He is not on ACEI/ARB. He does not take excess NSAID's.I started him on Jardiance which I plan to maximize with time. I may consider cutting back his metformin. He needs to loose weight, keep his BS better controlled and keep his BP at goal. He needs to avoid NSAID's and maintain good hydration. I have ordered further W/U including imaging studies. He may need a renal biopsy. Time spent retrieving and reviewing his medical records, patient encounter and documentation included 59 minutes. All these have been explained in detail. Answered all his questions. F/U given Orders: Orders Creatinine 1 Month E11.22 - Type 2 diabetes mellitus with diabetic chronic kidney disease, I10 - Essential (primary) hypertension, N18.32 - Chronic kidney disease, stage 3b Blood Urea Nitrogen 1 Month E11.22 - Type 2 diabetes mellitus with diabetic chronic kidney disease, I10 - Essential (primary) hypertension, N18.32 - Chronic kidney disease, stage 3b Immunofixation Pnl, Serum 1 Month E11.22 - Type 2 diabetes mellitus with diabetic chronic kidney disease, I10 - Essential (primary) hypertension, N18.32 - Chronic kidney disease, stage 3b Immunofixation, Random Urine 1 Month E11.22 - Type 2 diabetes mellitus with diabetic chronic kidney disease, I10 - Essential (primary) hypertension, N18.32 - Chronic kidney disease, stage 3b Vitamin D 25-OH Total 1 Month E11. - Type 2 diabetes mellitus with diabetic chronic kidney disease, I10 - Essential (primary) hypertension, N18.32 - Chronic kidney disease, stage 3b US renal BI 2 Weeks E11. - Type 2 diabetes mellitus with diabetic chronic kidney disease, I10 - Essential (primary) hypertension, N18.32 - Chronic kidney disease, stage 3b Electrolytes 1 Month E11. - Type 2 diabetes mellitus with diabetic chronic kidney disease, I10 - Essential (primary) hypertension, N18.32 - Chronic kidney disease, stage 3b Calcium 1 Month E11. - Type 2 diabetes mellitus with diabetic chronic kidney disease, I10 - Essential (primary) hypertension, N18.32 - Chronic kidney disease, stage 3b Protein Creatinine Ratio, Ur 1 Month E11. 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
[2024-06-21 11:29] VITALS: BP 132/62; PULSE 60; O2SAT 96; BMI 35.9
== END 2024-06-21 12:10 | disposition home or self-care (01) ==
PROVIDERS: PCP Family Medicine; Referring Provider Family Medicine; Visit Provider Internal Medicine Nephrology
DX: I12.9 Hypertensive chronic kidney disease with stage 1 through stage 4 chronic kidney disease, or unspecified chronic kidney disease (principal); E11.22 Type 2 diabetes mellitus with diabetic chronic kidney disease; N18.32 Chronic kidney disease, stage 3b
CPT/HCPCS: 99205

== ENCOUNTER → 2024-06-21 11:10 | Outpatient (BNVA) | payer MEDICARE, SELFPAY | PROVIDERS: PCP Family Medicine; Referring Provider Family Medicine; Visit Provider Internal Medicine Nephrology | DX: E11.22 Type 2 diabetes mellitus with diabetic chronic kidney disease (principal); I12.9 Hypertensive chronic kidney disease with stage 1 through stage 4 chronic kidney disease, or unspecified chronic kidney disease; N18.32 Chronic kidney disease, stage 3b; E11.65 Type 2 diabetes mellitus with hyperglycemia; Z79.84 Long term (current) use of oral hypoglycemic drugs | CPT/HCPCS: 99202 ==

== ENCOUNTER 2024-07-09 14:07 | Outpatient (REF) | payer MEDICARE, SELFPAY ==
--- NOTE | ~2024-07-09 | US_ITS ---
EXAMINATION: US RETROPERITONEAL LIMITED (RENAL ONLY) CLINICAL INFORMATION: Diabetes. Chronic kidney disease. COMPARISON: Multiple priors, most recent renal ultrasound dated 02/07/2018. TECHNIQUE: Grayscale, Doppler, and cine images of the kidneys were obtained. FINDINGS: RIGHT KIDNEY: 12.3 x 4.3 x 5.9 cm (SAG x AP x TRV). The kidney is normal in size, contour, and echogenicity. Renal cortical thickness is normal. Simple-appearing mid pole cyst measuring up to 1.9 cm. No calculi or concerning parenchymal lesions. No hydronephrosis. LEFT KIDNEY: 13.5 x 4.7 x 3.7 cm (SAG x AP x TRV). The kidney is normal in size, contour, and echogenicity. Renal cortical thickness is normal. Simple-appearing lateral midpole cyst measuring up to 1.3 cm. No calculi or concerning parenchymal lesions. No hydronephrosis. US/US renal BI IMPRESSION: 1. Simple bilateral renal cysts measuring up to 1.9 cm on the right and 1.3 cm on the left. 2. No hydronephrosis or nephrolithiasis. Electronically signed by: Trent Lal MD 07/09/2024 05:52 PM NUZHAT
--- OUTSIDE RECORDS SUMMARY | 2024-07-10 21:59 | XMS_ITS ---
Author Organization [facility] Address [address] [place] [phone] Care Team Providers Care Mandarin Tutor Name Role Phone Bashir Severino MD Primary Care Provider UnavailJayme Osorio Jr Unavailable [phone] ALLERGIES No Known Allergies REASON FOR VISIT Patient presents today for hearn's MEDICATIONS Medication SIG (Take, Route, Frequency, Duration) Notes Start Date End Date Status Apixaban 5 MG 1 Orally BID Act sheila metFORMIN HCl 500 MG 1 tablet with a chaka l Orally Once a day Active traMADol HCl 50 MG 1 tablet as needed Orally TID/prn Active Atorvastatin Calcium 40 MG 1 tablet Orally Once a day Active Glucosamine 500 MG 2 capsule with a chaka l Orally QAM Active CoQ10 100 MG 1 capsule with a chaka l Orally Once a day Active Multi Vitamin/Minerals - 1 Orally QD Active Amitriptyline HCl 25 MG 1 tablet Orally Once a day Active Omeprazole 40 MG 1 capsule Orally Onc e a day 04/14/2012 Active Aspirin 81 MG 1 tablet Orally Once a day Active Claritin 10 MG 1 tablet Orally Once a day Active Lyrica 100 MG 1 capsule Orally Onc e a day Active Sotalol HCl 80 MG 1 tablet Orally once a day Active Versatile Cream Base - as directed Externally Active Betamethasone Combo PF Active Co Q 10 100 MG as directed Orally Active Aspirin 81 81 MG 1 tablet Orally Once a day for 30 day(s) Active Eliquis 5 MG as directed Orally Active Jardiance 10 MG 1 tablet Orally Once a day for 30 day(s) Active tylenol 1 tab Oral for 14 days 1000 mg bid Active Tylenol 500 mg BID Activ e amLODIPine Besylate 5 MG Oral for 90 Active Plavix 75 MG Orally Active Eye Vitamins & Minerals Active Loratadine 10 MG Orally Act sheila Indomethacin 25 MG 1 capsule with food or milk Orally prn Active Eye Health Formula 1 1 PO QD Active Ranibizumab 0.1 mg A ctive Betamethasone 10 mg knee pain Active Ciclopirox Olamine 0.77 % 1 application to affected area Externally Twice a day/prn Active PROBLEMS Problem Type ICD Code Onset Dates Problem Status W/U Status Risk SNOMED Code Notes Problem Gastro-esophag eal reflux disease with esophagitis, with bleeding (K21.01) Active confirmed VITAL SIGNS BMI 36.02 kg/m2 06/24/2024 Blood pressure systolic 000 mm Hg 06/24/20 Blood pressure diastolic 00 mm Hg 024 Height 67 in 06/24/2024 Temperature 98.6 degrees Fahrenheit 06/24/20 Weight 230 lbs 06/24/2024 Encounters Encounter Location Date Provider Diagnosis [facility] [address] [place] [address] 06/24/2024 Jayme Soni Jr Hearn's esophagus without dysplasia K22.70 and Gastro-esophageal reflux disease with esophagitis K21.0 ASSESSMENTS Encounter Date Diagnosis Assessment Notes Treatment Notes Treatment Clinical Notes 06/24/2024 Hearn's esophagus without dysplasia (ICD-10 - K22.70) Hearn esophagus material was printed 06/24/2024 Gastro-esophageal reflux disease with esophagitis (ICD-10 - K21.0) PLAN OF TREATMENT Treatment Notes Assessment Notes Hearn's esophagus without dysplasia Ba rrett esophagus material was printed Next Appt Details Follow Up: 1 Year, Reason: Provider Name:Jayme barakat Jr, 06/23/2025 09:00:00 AM, [address], [address], [place], [address],
--- OUTSIDE RECORDS SUMMARY | 2024-07-10 21:59 | XMS_ITS ---
Author Organization [facility] Address [address] [place] [phone] Care Team Providers Care World Designer Name Role Phone Bashir Severino MD Primary [...] Gastroes ophageal reflux disease with esophagitis (disorder) (952081454) VITAL SIGNS BMI 34.14 kg/m2 05/17/2023 Blood pressure systolic 000 mm Hg 05/17/20 23 Blood pressure diastolic 00 mm Hg 023 Height 67 in 05/17/2023 Temperature 98.2 degrees Fahrenheit 05/17/20 23 Weight 218 lbs 05/17/2023 Encounters Encounter Location Date Provider Diagnosis [facility] [address] [place] [address] 05/17/2023 Jayme Soni Jr Osorio's esophagus without [...] Name:Jayme barakat Jr, 06/23/2025 09:00:00 AM, [address], [address], [place], [address],
--- OUTSIDE RECORDS SUMMARY | 2024-07-10 21:59 | XMS_ITS | Patient Health Record ---
Author Organization [facility] Address [address] [place] [address] Care Team Providers Care Cafeteria Monitor Name Role Phone Bashir Severino MD Primary Care Provider Unavailab Jayme Guzman Jr Unavailable ALLERGIES No Known Allergies REASON FOR REFERRAL No Information MEDICATIONS Medication SIG (Take, Route, Frequency, Duration) Notes Start Date End Date Status Co Q 10 100 MG as directed Orally Active Indomethacin 25 MG 1 capsule with food or milk Orally prn Active Eye Health Formula 1 1 PO QD Active Apixaban 5 MG 1 Orally BID Act sheila Aspirin 81 81 MG 1 tablet Orally Once a day for 30 day(s) Active Amitriptyline HCl 25 MG 1 tablet Orally Once a day Active Omeprazole 40 MG 1 capsule Orally Onc e a day 04/14/2012 Active Aspirin 81 MG 1 tablet Orally Once a day Active metFORMIN HCl 500 MG 1 tablet [...] Multi Vitamin/Minerals - 1 Orally QD Active Claritin 10 MG 1 tablet Orally Once a day Active Lyrica 100 MG 1 capsule Orally Onc e a day Active Eliquis 5 MG as directed Orally Active Tylenol 500 mg BID Activ e Jardiance 10 MG 1 tablet Orally Once a day for 30 day(s) Active Ranibizumab 0.1 mg A ctive Betamethasone 10 mg knee pain Active Ciclopirox Olamine 0.77 % 1 application to affected area Externally Twice a day/prn Active Sotalol HCl 80 MG 1 tablet Orally once a day Active amLODIPine Besylate 5 MG Oral for 90 Active Versatile Cream Base - as directed Externally Active Plavix 75 MG Orally Active Betamethasone Combo PF Active Eye Vitamins & Minerals Active tylenol 1 tab Oral for 14 days 1000 mg bid Active Loratadine 10 MG Orally Act sheila IMMUNIZATIONS Vaccine Route Administration Date Status Comme nts Influenza Unknown 04/03/2018 Administered Influenza Unknown 03/31/2019 Administered Influenza Unknown 05/13/2020 Administered Influenza Unknown 06/22/2021 Administered Influenza Unknown 05/10/2022 Administered Influenza Unknown 06/04/2024 Administered SOCIAL HISTORY Sex Assigned At : Social History Observation Description Sex Assigned At Unknown PROBLEMS Problem Type ICD Code Onset Dates Problem Status W/U Status Risk SNOMED Code Notes Problem Colon cancer screening (Z12.11) Active confirmed 246829785 Problem Gastro-esophageal reflux disease with esophagitis (K21.0) Active confirmed 525876344 Problem Osorio's esophagus without dysplasia (K22.70) Active confirmed 239077721 Problem Rectal urgency (R15.2) Active confirmed 25873846 Problem Throat pain (R07.0) Active confirmed 16 0985242 Problem Diarrhea, unspecified type (R19.7) Active confirmed 08318588 Problem Gastro-esophageal reflux disease with esophagitis, with bleeding (K21.01) Active confirmed Problem Gastroesophageal reflux disease with esophagitis, unspecified whether hemorrhage (K21.00) Active confirmed Gastroes ophageal reflux disease with esophagitis (disorder) (735556206) VITAL SIGNS Temperature 98.6 degrees Fahrenheit 06/24/2024 Blood pressure diastolic 00 mm Hg 06/24/2024 Height 67 in 06/24/2024 Blood pressure systolic 000 mm Hg 06/24/2024 Weight 230 lbs 06/24/2024 BMI 36.02 kg/m2 06/24/2024 Encounters Encounter Location Date Provider Diagnosis [facility] [address] [place] [address] 06/24/2024 Jayme Soni Jr Osorio's esophagus without dysplasia K22.70 and Gastro-esophageal reflux disease with esophagitis K21.0 ASSESSMENTS Encounter Date Diagnosis Assessment Notes Treatment Notes Treatment Clinical Notes 06/24/2024 Gastro-esophageal reflux disease with esophagitis (ICD-10 - K21.0) 06/24/2024 Osorio's esophagus without dysplasia (ICD-10 - K22.70) Osorio esophagus material was printed PLAN OF TREATMENT Future Test Test Name Order Date UPPER GI ENDOSCOPY 11/14/2012 COLONOSCOPY 01/27/2016 Next Appt Details Provider Name:Jayme oneilmaryanne Whitley, 06/23/2025 09:00:00 AM, [address] [facility], [address], [place], [address], Insurance Providers Payer Name Payer Address Payer Phone Subscriber Number Group Number Insured Name Patient Relationship to Insured Coverage Start Date Coverage End Date [facility] [address] [place] [phone] [id number] TERRI HERMOSILLO Self - patient is the [...]
--- OUTSIDE RECORDS SUMMARY | 2024-07-10 21:59 | XMS_ITS ---
Author Organization [facility] Address [address] [place] [address] Care Team Providers Care Healthcare Science Specialist Name Role Phone Bashir Severino MD Primary Care Provider Unavailab dawit Soni Jr, Jayme Cantu REASON FOR VISIT ov recall Encounters Encounter Location Date Provider Diagnosis [facility] [address] [place] [address] [address] [place] [address] 05/17/2023 Jayme Soni Jr PLAN OF TREATMENT Next Appt Details Provider Name:Jayme barakat Jr, 06/23/2025 09:00:00 AM, [address] [place] [address], [address], [place], [address],
--- OUTSIDE RECORDS SUMMARY | 2024-07-10 22:00 | XMS_ITS ---
Author Organization [facility] miguel [place] Address [address] [place] [address] Care Team Providers Care Director Content Marketing Name Role Phone Maycol CORTEZ, Bashir Primary Care Provider Unavailab Rom Rose Unavailable [phone] Allergies No Known Allergies REASON FOR VISIT At Risk Footcare, Toe Irritation Medications Medication SIG (Take, Route, Frequency, Duration) Notes [...] tablet Oral every 12 hrs Active Nystop 695147 UNIT/GM External Not-Taking Tylenol 1000mg bid Active [...] Indomethacin prn Active Glucosamine Active Eliquis Active Social History Tobacco Use: Social History Observation Description Date Details (start date - stop date) Never Smoker NA - NA Tobacco Use/Smoking Question Answer Notes Are you a: nonsmoker Additional Findings: Tobacco Non-User Current no n-smoker Alcohol Screen Question Answer Notes Did you have a drink containing alcohol in the p ast year? No Points 0 Interpretation Negative Tobacco use other than smoking: Question Answer Notes Are you an other tobacco user? No Vital Signs Height 5 ft 8 in in 11/21/2023 Weight 220 lbs 11/21/2023 BMI 33.45 kg/m2 11/21/2023 Procedures Procedure Date Ordered Date Performed Result Body Sit e 61604-EUJIDJM NAIL, 6 OR MORE 11/21/2023 N/A 60041-XDDL SKIN LESIONS, OVER 4 11/21/2023 N/A Encounters Encounter Location Date Provider Diagnosis [facility] [address] [address] 11/21/2023 Rom Pollock Type 2 diabetes mellitus with diabetic polyneuropathy E11.42 ; Onychomycosis B35.1 ; Other hammer toe(s) (acquired), right foot M20.41 and Other hammer toe(s) (acquired), left foot M20.42 Assessments Encounter Date Diagnosis (ICD Code) Assessment Notes Treatment Notes Treatment Clinical Notes Section Notes 11/21/2023 Type 2 diabetes mellitus with diabetic polyneuropathy (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.42) 11/21/2023 Onychomycosis (ICD-10 - B35.1) 11/21/2023 Other hammer toe(s) (acquired), right foot (ICD-10 - M20.41) Patient Educated with: DIABETIC FOOT CARE INSTRUCTIONS. pdf (DIABETIC FOOT CARE INSTRUCTIONS. pdf) 11/21/2023 Other hammer toe(s) (acquired), left foot (ICD-10 - M20.42) Plan Of Treatment Medication Medication Name Sig Start Date Stop [...] INSTRUCTIONS.pdf) Pending Test Test Name Order Date 49234-DDCNLME NAIL, 6 OR MORE 11/21/2023 10125-WVJD SKIN LESIONS, OVER 4 11/21/19 24 Next Appt Details Follow Up: prn, Reason: Provider Name:Rom Pollock , 11/19/2024 09:00:00 AM, [address] [place] [address], [id number], Procedure Notes * Category Sub-Category Detail Notes [...] as necessary. Patient chooses, no pharmaceutical tx (19148) Keratoma Treatment Parring or Cutting o f Benign Hyperkeratotic Lesion(s) 11441 ( >4 Lesions) - The Benign hyperkeratotic lesions, as described above were pared, and/or cut utilizing a sterile #15 blade, tissue nippers, and/or dremel Progress Notes * BAYStevenh HDOB: 1 (83 yo M)Acc No.[id number]:11/21/2023 Progress Note Patient:?Chris Avalos Provider:?Rom Pollock DPM :1940???Age:83 Y???Sex:Male Filiberto e:11/21/2023 Address:[address] [place] [address] Pcp:Bashir Severino MD Subjective: * Chief Complaints: * ???At Risk FootcareToe Irrit ation * HPI: ???At Risk footcare:?Pt States Last PCP Visit:?Date?08/17/2023 ???Toe pain:?Location:?B/L feet.?Duration:?several years.?Course:?worse.?Aggrevated by:?shoes, any pressure.?Treatments:?change in shoes.? * ROS:?General/Constitutional:?Nausea?denies.?Vomiting?denies.?Hunger Thirst?denies.?Loss appetite?denies.?Chills?denies.?Fatigue?admits.?Fever?denies.?Night Sweats?admits.?Unexplained weight loss?denies.?Ophthalmologic:?Blurred vision?denies.?Red eye?denies.?HEENTM:?Dentures?denies.?Dizziness?denies.?Glasses/contacts?admits.?Retinopathy?de nies.?Blurred/double vision?denies.?TMJ?denies.?Discharge/drainage?denies.?Implants?denies.?Hard of hearing denies.?Difficulty chewing/swallowing/speaking?denies.?Nose bleeds?denies.?Sore mouth?denies.?Swollen glands?denies.?Respiratory:?On Oxygen?denies.?Pneumonia/pleurisy?denies.?Bronchitis?denies.?Emphysema?denies.?C oughing?denies.?Cough blood?denies.?Shortness of breath?denies.?Wheezing?denies.?Cardiovascular:?Pacemaker?denies.?MVP?denies.?WPW?denies.?CHF?denies.?Heart attack?denies.?Septal defect?denies.?Rapid beat?denies.?Chest pain ?denies.?Atrial Fib.?admits.?Murmur/Palpitations?denies.?Gastrointestinal:?Hemorrhoids?denies.?Stomach/Abdominal pain?denies.?Dark blood stool?denies.?Irritable bowel ?denies.?Constipation?denies.?Diarrhea?denies.?Vomiting?denies.?Hematology:?Swelling?admits.?Bruising??admits, on aspirin.?Bleeding problem??admits, on anticoagulants.?Genitourinary:?Blood urine?denies.?Frequent/Painfu/urination/bladder control?admits.?Kidney stones?denies.?Infection (UTI)?denies.?Nephropathy?denies.?Musculoskeletal:?Hammertoes?admits.?Bunions?admits.?Scoliosis/kyphosis?denies.?Muscle cramps / walking?denies.?Generalized aches and pains?admits.?Weakness?denies.?Integ.:?Carlos?denies.?Scars?denies.?Corns/calluses?admits.?Ingrown nails?admits.?Painful nails?denies.?Rashes?denies.?Neurologic:?Difficulty sleeping?denies.?Bipolar?denies.?Brain disorder?denies.?Balance trouble?denies.?Confusion?denies.?Fainting/blackouts?denies.?Headache?denies.?Tr emors?denies.? * Medical History:? * Surgical History:?right hip replacement 10/03stent insertion 04/09cholecystectomy 08/09left hip replacement stents 04/2018Cortisone injectionin Knee 11/18/21Knee Replacement left 04/2022 * Hospitalization/Major Diagno stic Procedure:?Hip replacement surgery 05/2015[facility]- [place] /BP 200 CT scans taken overnight cause too much sun 09/2021 * Family History:?Mother: dece ased, diagnosed with Other specified conditions influencing health status.?Father: , diagnosed with Family history of arthritis, Other malignant neoplasm of unspecified site.?Daughter(s): alive.?Son(s): alive.?Siblings: diagnosed with Family history of arthritis, Diabetic - NIDDM.?1 son(s) , 2 daughter(s) . .? * Social History:?Tobacco Use:?Tobacco Use/Smoking?Are you a:?nonsmoker ?Additional Findings: Tobacco Non-User?Current non-smoker ?Tobacco use other than smoking?Are you an other tobacco user??No ???Drugs/Alcohol:?Drugs?Have you used drugs other than those for medical reasons in the past 12 months??No ?Alcohol Screen?Did you have a drink containing alcohol in the past year??No ?Points?0 ?Interpretation?Negative ???Miscellaneous:?Caffeine: yes, frequency:, 2-3 cups per day. ?Children: yes. ?Exercise: yes, housework, Barn, gym. ?Marital status: . ?Occupation: [employer]. * Medications:?TakingamLODIPin e Besylate 2.5 MG Tablet Oral Aspirin 81 MG Tablet 1 tablet Orally Once a dayAtorvastatin Calcium 80 MG Tablet 1 tablet Orally Amoxicillin 500 MG Capsule 1 tablet Oral as needed for dental appts, Notes: PRN-DentalAmitriptyline HCl 25 MG Tablet Orally Clopidogrel Bisulfate 75 MG Tablet Orally Clear Eyes for Dry Eyes Co Enzyme Q-10 Eliquis Glucosamine Indomethacin , Notes: prnLoratadine 10 MG Tablet 1 tablet Orally Once a dayLyrica 100 MG Capsule 1 capsule Orally once at nightmetFORMIN HCl Multivitamins Capsule Orally Omeprazole 40 MG Capsule Delayed Release 1 capsule Orally Once a daySotalol HCl 80 MG Tablet 1 tablet Oral every 12 hrsTylenol 1000mg bidTaking amLODIPine Besylate 2.5 MG Tablet Oral Taking Aspirin 81 MG Tablet 1 tablet Orally Once a dayTaking Atorvastatin Calcium 80 MG Tablet 1 tablet Orally Taking Amoxicillin 500 MG Capsule 1 tablet Oral as needed for dental appts, Notes: PRN-DentalTaking Amitriptyline HCl 25 MG Tablet Orally Taking Clopidogrel Bisulfate 75 MG Tablet Orally Taking Clear Eyes for Dry Eyes Taking Co Enzyme Q-10 Taking Eliquis Taking Glucosamine Taking Indomethacin , Notes: prnTaking Loratadine 10 MG Tablet 1 tablet Orally Once a dayTaking Lyrica 100 MG Capsule 1 capsule Orally once at nightTaking metFORMIN HCl Taking Multivitamins Capsule Orally Taking Omeprazole 40 MG Capsule Delayed Release 1 capsule Orally Once a dayTaking Sotalol HCl 80 MG Tablet 1 tablet Oral every 12 hrsTaking Tylenol 1000mg bidNot-Taking/PRNNystop 481552 UNIT/GM Powder External hydroCHLOROthiazide 25 MG Tablet 1 tablet Oral traMADol HCl , Notes: prnLyrica 50 MG Capsule Orally once in morningMedication List reviewed and reconciled with the patientNot-Taking/PRN Nystop 527188 UNIT/GM Powder External Not-Taking/PRN hydroCHLOROthiazide 25 MG Tablet 1 tablet Oral Not-Taking/PRN traMADol HCl , Notes: prnNot-Taking/PRN Lyrica 50 MG Capsule Orally once in morningMedication List reviewed and reconciled with the patient * Allergies:?N.K.D.A.yes[Thad riggins Verified] Objective: * Vitals:?Ht: 5 ft 8 in, Wt:22 0, BMI:33.45, Shoe size:11-11.5, BS:175. * ???Past Orders: ???Lab:HEMOGLOBIN A1C (GLYCO HEMOGLOBIN) (Order Date - 01/30/2023) (Collection Date - 01/30/2023) ? Value Reference Range ?TOTAL HEMOGLOBIN (HGBA1C) 7.9 * Examination: ???Neurological: ?SENSORY:?Neurological exam demonstrates, reduced light touch sensation, reduced sharp/dull discrimination lower extremity, reduced vibration lower extremity, at Forefoot, B/L, 5.07 monofilament test performed at plantar aspects of 5 varied sites per foot shows sensation, reduced, B/L, Pt relates, paresthesia, pins and needles sensation, tingling, at rest, Forefoot, B/L.?Nails: ?NAILS are:?Elongated, overgrown, dystrophic, lytic, greater than 3mm thick, discolored and friable with crumbly malodorous subungual debris, 1-5 B/L.?Dermatologic: ?SKIN FINDINGS:?Skin exam reveals Keratotic lesion(s) located at, Medial, IPJ, TA, Medial, IPJ, T5, SUB MTH (s), 1, B/L , SUB MTH (s), 2, B/L , SUB MTH (s), 3, B/L , SUB MTH (s), 4, B/L , SUB MTH (s), 5, B/L.?Orthopedic: ?MUSCLE STRENGTH:?5/5 all groups in a symmetrical fashion , B/L.?FOOT MORPHOLOGY:?Pes Planus structure , (-) Charcot collapse/destruction noted at MTJ.?DIGITAL DEFORMITIES:?Digital contracture, PIPJ, 2-5 B/L, incompl-reducible to push-up test, no over, nor underlapping, with evidence of shoe producing skin irritation.?FOOTWEAR:?worn, OT were inspected and noted to be severely worn , in poor condition not giving proper support at the present time , shoe gear properties exacerbate patient's foot/toe deformity.?Vascular: ?DP PULSES:?08/03, B/L.?PT PULSES:?08/03, B/L.?CAPILLARY FILL TIME:?3 secs. per digit, B/L.?SKIN TEMPERTURE GRADIENT OF THE LOWER EXTERMITIES:?decreased, cool to cool, proximal to distal, B/L.?HAIR GROWTH/TEXTURE/ELASTICITY/TURGOR:?decreased, B/L.?PIGMENTATION:?mottled, B/L.?EDEMA:?/4, non-pitting, without aching pain, B/L, Ankle(s).?Ophthalmology Referral: ?DIABETES EYE EXAM?General Examination: ?GENERAL APPEARANCE:?Reveals a pleasant, alert, well nourished, well developed, well hydrated individual, who demonstrates proper attention to hygiene/body habitus, and is in no acute distress , Pt serves as own historian for office visit today.?ORIENTED:?person, place, and time.?FOOT EXAM:?Footwear Evaluation? Assessment: * Assessment: 1.?Type 2 diabetes mellitus with diabetic polyneuropathy - E11.42 (Primary)?2.?Onychomycosis - B35.1?3.?Other hammer toe(s) (acquired), right foot - M20.41, Chronic problem, Worse (4),Rx Management (4)?4.?Other hammer toe(s) (acquired), left foot - M20.42, Chronic problem, Worse (4),Rx Management (4)? Plan: * Treatment: 2.?Other hammer toe(s) (acqu ired), right foot? Start Extra Depth Orthopedic Shoes (1 Pair) with Customized Heat Molded Multidensity Innersoles (3 Pair), as directed, Dx: NIDDM/Polyneuropathy (E11.42), Hammertoe Foot Deformity (M20.41,M20.42), Preulcerative Skin Lesion(s) (L85.1, 1, Refills 0.?? Notes: Patient Educated with: DIABETIC FOOT CARE INSTRUCTIONS.pdf (DIABETIC FOOT CARE INSTRUCTIONS.pdf)?? * Procedures:?Debride Nail 6-10:?Nail debridement?Nail debridement performed extensively to reduce/remove overall nail length and girth, subungual debris, and necrotic tissue, by manual and electrical means with use of a nail nipper and/or dremel, to more viable healthy nail plate or bed tissue 6-10. Silver nitrate used for any petechial bleeding as necessary. Patient chooses, no pharmaceutical tx (34209).?Keratoma Treatment:?Parring or Cutting of Benign Hyperkeratotic Lesion(s)?77847 ( >4 Lesions) - The Benign hyperkeratotic lesions, as described above were pared, and/or cut utilizing a sterile #15 blade, tissue nippers, and/or dremel.? * Procedure Codes:?10851 DEBRI DE NAIL, 6 OR MORE, Modifiers: XS 95380 TRIM SKIN LESIONS, OVER 4, Modifiers: XS * Preventive Medicine:? ??Counseling:?Discussion:?-14: Office or other outpatient visit for the evaluation and management of an established patient, which required a medically appropriate history and/or examination and MODERATE level of DECISION MAKING for: 1 OR MORE CHRONIC PROBLEM(S) THATS WORSENING, 2 STABLE CHRONIC PROBLEMS, A NEWLY DIAGNOSED PROBLEM WITH UNCERTAIN PROGNOSIS, AN ACUTE COMPLICATED INJURY WITH MULTIPLE TREATMENT OPTIONS, OR AN ACUTE PROBLEM WITH ACCOMPANYING SYSTEMIC SYMPTOMS, THAT POSE(S) A MODERATE RISK OF MORBIDITY. THIS CONDITION MAY ALSO INCLUDE RX DRUG MANAGEMENT, OR A DECISON FOR MINOR SURGERY. The visit on the day of the encounter encompassed interpreting the data and educating the patient as to the nature of their condition, treatment options available according to their individual PMH, meds, allergies, and overall health/living conditions, as well as any potential risks or complications that may occur from a failure to adhere to, and participate in, the recommended course of therapy. The discussion included a complete verbal, and/or written explanation of the examination results, any x-rays taken, the proposed diagnosis, and outline of the treatment plan. A schedule for future care needs was also explained. The patient verbalized an understanding of the instructions at this time and agreed to be an active participant in their treatment. If the patient should think of any questions or concerns after the visit, I have encouraged the patient to call the office.?Digital Surgery:?Digital surgery was discussed with the patient, We elected to try conservative treatment at the present time, due to the patients medical history and increased asssociated post-operative risks.?Digital Treatment:?HT- I explained to the patient the possible etiologies of Hammertoes, including genetics/foot type/shoegear/activity level/exercise routine and the risks/benefits of all the different treatment options for their pain including: No treatment at all, Rest, Ice, New/supportive/wider/deeper Shoegear, Digital Padding/Strapping/Taping/Bracing/Gel protective sleeves, Foot/Ankle AFO Bracing, Stretching exercises, Deep Tissue Massage, Arch support/shoe inserts with splay metatarsal padding, and Custom orthoses. I insisted that any digital devices be removed daily and not worn overnight for safety. The patient is to carefully examine the toes daily for any skin irritation while using any splinting or padding device. The advantages and disadvantages of each option were discussed and the patients questions re: shoegear, padding, custom vs prefabricated inserts, activity level, and consistency in home treatment regimens for optimal success were answered to their verbally confirmed satisfaction.?Shoe Gear Counseling:?SHOE Rx - The patient was counseled in great detail on their muscoloskeletal foot and toe deformities which coincided with the dermatological presentations visualized on exam. We discussed how their deformities put the integrity of their feet at risk for potential pedal complications which makes the accomidative diabetic shoes and cutomizable inserts medically necessary. We discussed the different shoe and insert treatment types and options, as well as the important advantages for adhering to regularly wearing these accomidative devices daily. The patient was made aware of the fact that a failure to abide by these recommedations may be deleterious to their foot health as they are able to prevent many pedal complications such as skin irritation, skin ulceration, infection, and even loss of toe/foot/leg/or life. Time was also spent with the patient dispensing and discussing proper diabetic footcare techniques including daily skin moisturization, daily foot inspection for any interruption in skin integrity including open lesions, or sign of infection such as redness/malodor/drainage/swelling. Also discussed and recommended were procedures regarding daily shoe inspection for the presence of internal foreign bodies as well as any visualized irregular shoe or insert wear. Patient questions re: shoes, inserts, and self foot inspections were answered to their satisfaction as the patient verbally confirmed a full understanding of the above information. A Rx for Extra Depth Orthopedic Shoes with 3 pair of custom heat-molded inserts was dispensed.? ??Screening/Special Tests:?Fall Risk?Assessment:?Performed ?Plan of Care:?Documented ?Screening:?No falls in the past year ?FALLS: Screening for Future Fall Risk?Have you had any falls with injury in the past year??No * Follow Up:?prn * Images: * Sign off status: Completed true * Provider:?Rom Pollock DPM Date:?2023 Generated for Santiago castillo/Robbin/Aprilitting on:?07/10/2024 10:00 PM EST History and Physical Notes * HPI (History of Present Illness) Category Sub-Category Detail Notes Category Not es Toe pain Location: B/L feet Duration: several years Course: worse Aggravated by: shoes, any pressure Treatments: change in shoes At Risk footcare Pt States Last PCP Visit: Date: 4 Examination Category Sub-Category Detail Notes Category Not es Neurological SENSORY: Neurological exa m demonstrates, reduced [...] Yes Ophthalmology Referral DIABETES EYE EXAM Diabetic Retinopa thy Screening:: Yes Findings of Diabetic Eye Exam:: [...]
--- OUTSIDE RECORDS SUMMARY | 2024-07-10 22:00 | XMS_ITS ---
Author [facility] Address [address] [place] [address] Care Team Providers Care Special Education Classroom Aide Name Role Phone Maycol CORTEZ, Bashir Primary Care Provider Unavailab Rom Rose Unavailable [phone] REASON FOR VISIT At Risk Footcare Medications Medication SIG (Take, Route, Frequency, Duration) Notes Start Date End Date Status Extra Depth Orthopedic Shoes (1 Pair) with Customized Heat Molded Multidensity Innersoles (3 Pair) as directed Dx: NIDDM/Polyneuropath y (E11.42), Hammertoe Foot Deformity (M20.41,M20.42), Preulcerative Skin Lesion(s) (L85.1 11/21/2023 Active Nystop 476368 UNIT/GM External Not-Taking hydroCHLOROthiazide 25 MG 1 [...] Besylate 2.5 MG Oral for 30 Active Social History Tobacco Use: Social History [...] Signs Height 5 ft 8 in in 02/20/2024 Weight 220 lbs 02/20/2024 BMI 33.45 kg/m2 02/20/2024 Procedures Procedure Date Ordered Date Performed Result Body Sit e 73859-METDKKR NAIL, 6 OR MORE 02/20/2024 N/A 15203-UEBY SKIN LESIONS, OVER 4 02/20/2024 N/A Encounters Encounter Location Date Provider Diagnosis [facility] [place] [address] [place] [address] 02/20/2024 Rom Pollock Type 2 diabetes mellitus with diabetic polyneuropathy E11.42 and Tinea unguium B35.1 Assessments Encounter Date Diagnosis (ICD Code) Assessment Notes Treatment Notes Treatment Clinical Notes Section Notes 02/20/2024 Type 2 diabetes mellitus with diabetic polyneuropathy (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.42) 02/20/2024 Tinea unguium (ICD-10 - B35.1) Plan Of Treatment Pending Test Test Name Order Date 61440-JDECWWH NAIL, 6 OR MORE 02/20/2024 44320-ZUVJ SKIN LESIONS, OVER 4 02/20/20 24 Next Appt Details Follow Up: prn, Reason: Provider Name:Rom Pollock , 11/19/2024 09:00:00 AM, [address] [place] [address], [id number], Procedure Notes * Category Sub-Category Detail Notes [...] as necessary. Patient chooses, no pharmaceutical tx (02972) Keratoma Treatment Parring or Cutting o f Benign Hyperkeratotic Lesion(s) 59845 ( >4 Lesions) - The Benign hyperkeratotic lesions, as described above were pared, and/or cut utilizing a sterile #15 blade, tissue nippers, and/or dremel Progress Notes * Chris HERMOSILLO HDOB: 1 (84 yo M)Acc No.[id number]:02/20/2024 Progress Note Patient:?Chris Hermosillo Provider:?Rom Pollock DPM :1940???Age:84 Y???Sex:Male Filiberto e:02/20/2024 Address:[address] [place], [place] [id number] Pcp:Bashir Severino MD Subjective: * Chief Complaints: * ???At Risk Footcare * HPI: ???At Risk footcare:?Pt States Last PCP Visit:?Date?01/17/2024 * ROS:?General/Constitutional:?Nausea?denies.?Vomiting?denies.?Hunger Thirst?denies.?Loss appetite?denies.?Chills?denies.?Fatigue?admits.?Fever?denies.?Night Sweats?admits.?Unexplained weight loss?denies.?Ophthalmologic:?Blurred [...] replacement 10/03stent insertion 04/09cholecystectomy 08/09left hip replacement 05/20153 stents 04/2018Cortisone injectionin Knee 11/18/21Knee Replacement left 04/2022 * Hospitalization/Major Diagno stic Procedure:?Hip [facility] 05/2015[facility]- [place] /BP 200 CT scans taken overnight [...] housework, Barn, gym. ?Marital status: . ?Occupation: [employer]. * Medications:?TakingamLODIPin e Besylate 2.5 MG Tablet [...] 1 tablet Oral every 12 hrsTylenol 1000mg bidExtra Depth Orthopedic Shoes (1 Pair) with Customized Heat Molded Multidensity Innersoles (3 Pair) as directed Dx: NIDDM/Polyneuropathy (E11.42), Hammertoe Foot Deformity (M20.41,M20.42), Preulcerative Skin Lesion(s) (L85.1Taking amLODIPine Besylate 2.5 MG Tablet Oral Taking [...] tablet Oral every 12 hrsTaking Tylenol 1000mg bidTaking Extra Depth Orthopedic Shoes (1 Pair) with Customized Heat Molded Multidensity Innersoles (3 Pair) as directed Dx: NIDDM/Polyneuropathy (E11.42), Hammertoe Foot Deformity (M20.41,M20.42), Preulcerative Skin Lesion(s) (L85.1Not-Taking/PRNNystop 911490 UNIT/GM Powder External hydroCHLOROthiazide 25 MG Tablet 1 tablet Oral traMADol HCl , Notes: prnLyrica 50 MG Capsule Orally once in morningMedication List reviewed and reconciled with the patientNot-Taking/PRN Nystop 804704 UNIT/GM Powder External Not-Taking/PRN hydroCHLOROthiazide 25 MG Tablet 1 tablet Oral Not-Taking/PRN traMADol HCl , Notes: prnNot-Taking/PRN Lyrica 50 MG Capsule Orally once in morningMedication List reviewed and reconciled with the patient * Allergies:?yes[Allergies Di ified] Objective: * Vitals:?Ht: 5 ft 8 in, Wt:22 0, BMI:33.45, Shoe size:11-11.5, BS:not taken. * ???Past Orders: ???Lab:HEMOGLOBIN A1C (GLYCO HEMOGLOBIN) [...] 4, B/L , SUB MTH (s), 5, B/L.? Assessment: * Assessment: 1.?Type 2 diabetes mellitus with diabetic polyneuropathy - E11.42 (Primary)?2.?Tinea unguium - B35.1? Plan: * Treatment: * Procedures:?Debride Nail 6-10:?Nail debridement?Nail debridement performed extensively to reduce/remove overall nail length, girth, thickness, subungual debris, and necrotic tissue, by manual and electrical means through the use of a nail nipper and/or dremel, to more viable healthy nail plate or bed tissue 1-5. Silver nitrate used for any petechial bleeding as necessary. Patient chooses, no pharmaceutical tx (91884).?Keratoma Treatment:?Parring or Cutting of Benign Hyperkeratotic Lesion(s)?70160 ( >4 Lesions) - The Benign hyperkeratotic lesions, as described above were pared, and/or cut utilizing a sterile #15 blade, tissue nippers, and/or dremel.? * Procedure Codes:?95715 DEBRI DE NAIL, 6 OR MORE, Modifiers: XS 68659 TRIM SKIN LESIONS, OVER 4, Modifiers: XS * Follow Up:?prn * Images: * Sign off status: Completed Addendum: * ? true * Provider:?Rom Pollock DPM Date:?2023 Generated for Santiago castillo/Robbin/Antelmo on:?07/10/2024 09:59 PM EST History and Physical Notes * HPI (History of Present Illness) Category Sub-Category Detail Notes Category Not es At Risk footcare Pt States Last PCP [...]
--- OUTSIDE RECORDS SUMMARY | 2024-07-10 22:00 | XMS_ITS | Continuity of Care Document ---
Author Organization [facility] Address [address] [place] [id number] Phone Care Team Providers Care Chairman And Ceo Name Role Phone Clark Lacey MD Unavailable Unavailable Allergies, Adverse Reactions, Alerts Substance Reaction Status Criticality No Known Allergies Active No Inform ation Medications Medication Instructions Dosage Effective Dates (start - stop) Status Comments atorvastatin 40 mg tablet TAKE 1 TABLET BY MOUTH AT BEDTIME - Active amitriptyline 25 mg tablet TAKE 1 TABLET BY MOUTH ONCE A DAY AT BEDTIME - Active pregabalin 100 mg capsule - Active omeprazole 40 mg capsule,delayed release TAKE ONE CAPSULE BY MOUTH EVERY DAY - Active Eliquis 5 mg tablet - Active nitroglycerin 0.4 mg sublingual tablet - Active sotalol 80 mg tablet TAKE ONE TABLET BY MOUTH EVERY DAY - Active metformin ER 500 mg tablet,extended release 24 hr TAKE 1 TABLET BY MOUTH AT BEDTIME - Active amlodipine 5 mg tablet - Act sheila ciclopirox 0.77 % topical cream - Active amlodipine 2.5 mg tablet TAKE ONE TABLET BY MOUTH AT BEDTIME - Active aspirin 81 mg tablet,delayed release take 1 tablet by oral route every day 81 MG - Active loratadine 10 mg disintegrating tablet take 1 tablet by oral route every day and place on top of the tongue where it will dissolve, then swallow 10 MG - Active Lyrica 100 mg capsule take 1 capsule by oral route 3 times every day 100 MG - Active Procedures Procedure Date Intravitreal injection OCT post segmt Eylea SAMPLE Intravitreal injection OCT post segmt Eylea SAMPLE E&M est moderate complexity Intravitreal injection OCT post segmt Lucentis 0.5 Eye exam established comprehensive Intravitreal injection OCT post segmt Lucentis 0.5 Intravitreal injection OCT post segmt Lucentis 0.5 SAMPLE E&M New moderate complexity Results Test Name Date and Time Measure Units Reference Range Abnormal Flag Status Commen ts Panel Description: [id number] Final Image Zeiss Result 1 Advance Directives Directive Yes / No Effective Date File Name No Information Encounters Encounter Description Practice Location Reason(s) For Visit Diagnoses Date Provider Providers Copied on Encounter [facility], [address] [place], [place], [id number] , [place] tel: [phone] [facility] [place] WAMD (chief complaint) Exudative age-related macular degeneration, left eye, with active choroidal neovascularization 4 Abhijit Rodas. [address] [place], [address], [place]. tel: [phone] Referring Provider: Clark Lacey, [address] [place], [address]. tel:[phone] E&M est moderate complexity [facility], [address] [place], [place], [id number] , [place] tel: [phone] [facility] [place] WAMD (chief complaint) Exudative age-related macular degeneration, right eye, with active choroidal neovascularizationExu dative age-related macular degeneration, left eye, with active choroidal neovascularization 4 Abhijit Rodas. [address] [place], [address], [place]. tel: [phone] Referring Provider: Clark Lacey, [address] [place], [address]. tel:[phone] [facility], [address], [place], [place], [id number] , [place] tel:[phone] [facility] (chief complaint) Exudative age-related macular degeneration, right eye, with active choroidal neovascularizationVit reous degeneration, bilateralNonexudative age-related macular degeneration, left eye, intermediate dry stage Sep- 3 Abhijit Rodas. [address] [place], [address], [place]. tel:[phone] Referring Provider: Clark Lacey, [address] [place], [address]. tel:[phone] [facility], [address], [place], [place], [id number] , [place] tel: [phone] [facility] WAMD w/ [facility]H (chief complaint) Exudative age-related macular degeneration, right eye, with active choroidal neovascularization Aug- 3 Abhijit Rodas. [address] [place], [address], [place]. tel: [phone] Referring Provider: Clark Lacey, [address] [place], [address]. tel:[phone] E&M New moderate complexity [facility], [address], [place], [place], [id number] , [place] tel: [phone] [facility] (chief complaint) Exudative age-related macular degeneration, right eye, with active choroidal neovascularizationNon exudative age-related macular degeneration, left eye, intermediate dry stageVitreous degeneration, bilateral 3 Abhijit Rodas. [address] [place], [address], [place]. tel: [phone] Referring Provider: Clark Lacey, [address] [place], [address]. tel:[phone] Family History Family Member Type Diagnosis Age At Onset No Information Immunizations Vaccine Date Status Comments Flu (split) (3 yrs or older) administered Source: Other Provider Pneumo (2 yrs or older)(PPV) administered Source: Other Provider Flu (split) (3 yrs or older) administered Source: Other Provider Payers Payer name Insurance type Covered libertarian ID Naomy cuellar(dipti) [email or web address] [place] 16 [id number] Good Days [id number] Social History Type Description Quantity Date Captured Comments Alcohol Use Details Unknown Caffeine Use Details Unknown Tobacco Use Status Ex-cigarette smoker 024 Smoking Status Former smoker Smoking Tobacco Use Details Cigarette: Age Stopped: 42 Cigarette: No Details Available Sex Male Chief Complaint And Reason For Visit From encounter dated '10/02/2023 09:55'. WAMD (chief complaint). Description: The 83 year old patient presents for evaluation of WAMD in theOU. Pt is here for MAC, possible NICK OS vs SHEILA SAMPLE OS, OCT OU, NO DIL. Pt states he got new glasses. Pt states DVA has decreased since last visit. Pt states not using any GTTS at this time. Pt denies having pain or discomfort at this time. Pt denies seeing F/F at this time. Reason For Referral Reason For Referral No Information Plan Of Treatment Date Type Action Status Appointment Chris Avalos BOOKED History Of Present Illness Encounter Date Complaint History Of Prese nt Illness WAMD The 83 year old patient presents for evaluation of WAMD in the OU. Pt is here for MAC, possible NICK OS vs SHEILA SAMPLE OS, OCT OU, NO DIL. Pt states he got new glasses. Pt states DVA has decreased since last visit. Pt states not using any GTTS at this time. Pt denies having pain or discomfort at this time. Pt denies seeing F/F at this time. WAMD The 83 year old patient presents for evaluation of WAMD in the OD and DAMD OS. Pt present for RCI, possible IVL OD, OCT MAC OU, DIL OU today. Pt states vision is decreased in OS. Pt feels like the OS is starting to get like OD. Pt denies any pain, flashes of light or floaters. Pt denies any eye drop use. Pt takes AREDS PO BID. Pt last BS 177 and last A1c was 7.2.Pt last saw Retina Dr up sid 06/30/2023. WAMD The 82 year old patient presents for evaluation of WAMD in the OD. Pt states vision stable since last visit. Pt denies new floaters or flashes of light. Pt here for Cimerly OD, OCT OU, DIL OU. WAMD w/ SRH The 82 year old patient presents for evaluation of WAMD w/ SRH OD. Pt states no changes in the vision since last visit. No F/F . Pt here for possible IVL vs IVL sample OD / OCT MAC OU / NO DIL OU. WAMD The 72 year old patient presents for evaluation of WAMD in the OD. Pt has Hx of WAMD s/p IVL x 5, pt was last seen [place] and found active SRH and SRF due to CF vision pt and Dr declined tx at that time last injection was 11/20/20. Pt came down here and saw Dr. Soriano and was referred to us due to active edema and heme in OD. Records are scanned in. Pt has not noticed a change in his VA OD at all, pt went [facility] to get [facility] glasses mainly for OS because he noticed a decline in VA OS. Pt is a Type 2 Diabetic controlled by Metformin.Verbal order for OCT MAC OU today to rule out edema Functional Status Date Functional Assessmen t No Information Instructions Date Instruction Additional Infor chelsey Impression/Plan Related to Exuda tive age-related macular degeneration, left eye, with active choroidal neovascularization Impression/Plan Related to Exuda tive age-related macular degeneration, right eye, with active choroidal neovascularization Impression/Plan Related to Exuda tive age-related macular degeneration, left eye, with active choroidal neovascularization Impression/Plan Related to Nonex udative age-related macular degeneration, left eye, intermediate dry stage Impression/Plan Related to Vitre ous degeneration, bilateral Impression/Plan Related to Exuda tive age-related macular degeneration, right eye, with active choroidal neovascularization Impression/Plan Related to Exuda tive age-related macular degeneration, right eye, with active choroidal neovascularization Impression/Plan Related to Exuda tive age-related macular degeneration, right eye, with active choroidal neovascularization Impression/Plan Related to Nonex udative age-related macular degeneration, left eye, intermediate dry stage Impression/Plan Related to Vitre ous degeneration, bilateral Assessments Type Assessment Date assessment Exudative age-relate d macular degeneration, left eye, with active choroidal neovascularization impression Exudative age-relate d macular degeneration, left eye, with active choroidal neovascularization: H35.3221. Patient Care Teams Name Effective Dates (start - stop) Status Members No Information
--- OUTSIDE RECORDS SUMMARY | 2024-07-10 22:00 | XMS_ITS | Patient Health Record ---
Author Organization [facility] [place] Address [address] [place] [address] Care Team Providers Care Director Agency & Strategic Partnerships Name Role Phone Bashir Severino MD Primary Care Provider Unavailab Rom Rose Unavailable [phone] Allergies No Known Allergies Results Component Value Reference Range Notes HEMOGLOBIN A1C (GLYCOHEMOGLO BIN) Reviewed date:06/04/2024 10:58:47 AM Interpretation: Performing Lab: Notes/Report: TOTAL HEMOGLOBIN (HGBA1C) 7.2 Reason For Referral No Information Medications Medication SIG (Take, Route, Frequency, Duration) Notes Start Date End Date Status Lyrica 100 MG 1 capsule Orally once at night Active Lyrica 50 MG Orally once in morning Not-Taking Amoxicillin 500 MG 1 tablet Oral as needed for dental appts PRN-Dental Active Multivitamins Orally 01/27/2014 Activ e Atorvastatin Calcium 80 MG 1 tablet Orally Active metFORMIN HCl Active Clopidogrel Bisulfate 75 MG Orally Active Sotalol HCl 80 MG 1 tablet Oral every 12 hrs Active Amitriptyline HCl 25 MG Orally Active Omeprazole 40 MG 1 capsule Orally Once a day Active Co Enzyme Q-10 Activ e Extra Depth Orthopedic Shoes (1 Pair) with Customized Heat Molded Multidensity Innersoles (3 Pair) as directed Dx: NIDDM/Polyneuropath y (E11.42), Hammertoe Foot Deformity (M20.41,M20.42), Preulcerative Skin Lesion(s) (L85.1 11/21/2023 Active Clear Eyes for Dry Eyes Active Tylenol 1000mg bid Active Glucosamine Active hydroCHLOROthiazide 25 MG 1 tablet Oral Not-Taking Eliquis Active Nystop 063190 UNIT/GM External Not-Taking amLODIPine Besylate 2.5 MG Oral for 30 Active Loratadine 10 MG 1 tablet Orally Once a day 01/27/2014 Active Indomethacin prn Active traMADol HCl prn Not-Anuel ing Aspirin 81 MG 1 tablet Orally Once a day 01/27/2014 Active Immunizations Vaccine Route Administration Date Status Comme nts Influenza Unknown 11/24/2015 Administered Influenza Unknown 05/24/2016 Pending Influenza Unknown 05/31/2017 Administered Influenza Unknown 05/28/2021 Administered Influenza Unknown 06/30/2022 Administered COVID-19 Pfizer BioNTech Vaccine Unknown 07/08/2021 Administered 1st 08/18/20 2nd 09/08/20 Social History Tobacco Use: Social History Observation [...] Are you an other tobacco user? No Problems Problem Type SNOMED Code ICD Code Onset Dates Problem Status W/U Status Risk Notes Problem Acquired hammer toe of right foot (0137146630300103 ) Other hammer toe(s) (acquired), right foot (M20.41) Active confirmed Problem Acquired hammer toe of left foot (8731543154503889 ) Other hammer toe(s) (acquired), left foot (M20.42) Active confirmed Problem Polyneuropathy due to type 2 diabetes mellitus (516882247) Type 2 diabetes mellitus with diabetic polyneuropathy (E11.42) Active confirmed Vital Signs Blood pressure diastolic 72 mm Hg 06/04/2024 Height 5 ft 8 in in 06/04/2024 Blood pressure systolic 134 mm Hg 06/04/2024 Weight 225 lbs 06/04/2024 BMI 34.21 kg/m2 06/04/2024 Procedures Procedure Date Ordered Date Performed Result Body Sit e 71979-QJOPWXJ NAIL, 6 OR MORE 11/21/2023 N/A 39635-PIVE SKIN LESIONS, OVER 4 11/21/2023 N/A 05353-UJXTUUE NAIL, 6 OR MORE 02/20/2024 N/A 17046-JPVR SKIN LESIONS, OVER 4 02/20/2024 N/A 70766-NCTPOPG NAIL, 6 OR MORE 06/04/2024 N/A 04548-ZLJQ SKIN LESIONS, OVER 4 06/04/2024 N/A Encounters Encounter Location Date Provider Diagnosis [address] [address] 11/21/2023 Rom Maris Type 2 diabetes mellitus with diabetic polyneuropathy E11.42 ; Onychomycosis B35.1 ; Other hammer toe(s) (acquired), right foot M20.41 and Other hammer toe(s) (acquired), left foot M20.[address] [address] 02/20/2024 Rom Maris Type 2 diabetes mellitus with diabetic polyneuropathy E11.42 and Tinea unguium B35.[address] [address] 06/04/2024 Romsheryl WootenMaris Type 2 diabetes mellitus with diabetic polyneuropathy E11.42 and Tinea unguium B35.1 Assessments Encounter Date Diagnosis (ICD Code) Assessment Notes Treatment Notes Treatment Clinical Notes Section Notes 11/21/2023 Type 2 diabetes mellitus with diabetic polyneuropathy (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.42) 11/21/2023 Onychomycosis (ICD-10 - B35.1) 02/20/2024 Type 2 diabetes mellitus with diabetic polyneuropathy (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.42) 02/20/2024 Tinea unguium (ICD-10 - B35.1) 06/04/2024 Type 2 diabetes mellitus with diabetic polyneuropathy (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.42) 06/04/2024 Tinea unguium (ICD-10 - B35.1) 11/21/2023 Other hammer toe(s) (acquired), right foot (ICD-10 - M20.41) Patient Educated with: DIABETIC FOOT CARE INSTRUCTIONS. pdf (DIABETIC FOOT CARE INSTRUCTIONS. pdf) 11/21/2023 Other hammer toe(s) (acquired), left foot (ICD-10 - M20.42) Plan Of Treatment Pending Test Test Name Order Date Hemoglobin A1c 02/10/2015 Hemoglobin A1c 05/19/2015 06742-VAFGVSL NAIL, 6 OR MORE 02/10/2015 93651-WBZORBJ NAIL, 6 OR MORE 05/19/2015 32545-CCKWOEY NAIL, 6 OR MORE 08/07/2015 86753-CMOEZPW NAIL, 6 OR MORE 11/24/2015 22973-BFKFVAR NAIL, 6 OR MORE 01/27/2014 90970-TDKOGPK NAIL, 6 OR MORE 04/08/2014 40279-SXHJCSL NAIL, 6 OR MORE 07/04/2014 10482-GFZAJIA NAIL, 6 OR MORE 11/11/2014 58739-HMIBGZK NAIL, 6 OR MORE 02/23/2016 26320-HVAFBTC NAIL, 6 OR MORE 05/24/2016 77143-SYTZGLI NAIL, 6 OR MORE 11/22/2016 91003-AQTXJTZ NAIL, 6 OR MORE 02/21/2017 99333-UZDCKGP NAIL, 6 OR MORE 05/12/2017 97111-JTDJQVS NAIL, 6 OR MORE 11/10/2017 81732-LVNPRMN NAIL, 6 OR MORE 03/09/2018 90219-NZOJUYI NAIL, 6 OR MORE 06/12/2018 70321-SJQONVW NAIL, 6 OR MORE 11/27/2018 86415-JSXQNXV NAIL, 6 OR MORE 02/15/2019 54067-RDHITXO NAIL, 6 OR MORE 05/21/2019 11153-OGUOKMU NAIL, 6 OR MORE 11/26/2019 24086-ZUFENLW NAIL, 6 OR MORE 03/17/2020 91353-AUWOGLA NAIL, 6 OR MORE 06/16/2020 00920-EOIKZOU NAIL, 6 OR MORE 09/22/2020 41774-QRKVTBY NAIL, 6 OR MORE 12/22/2020 51646-IVQJMPC NAIL, 6 OR MORE 04/09/2021 22932-ZLDEMVH NAIL, 6 OR MORE 11/19/2021 91541-JRHZQDU NAIL, 6 OR MORE 02/18/2022 12600-LPOEKZA NAIL, 6 OR MORE 05/06/2022 35798-HWWPKSZ NAIL, 6 OR MORE 11/25/2022 01189-HYFGIBR NAIL, 6 OR MORE 02/24/2023 79536-JMUSLDO NAIL, 6 OR MORE 05/26/2023 02190-RGOCFIB NAIL, 6 OR MORE 11/21/2023 59427-LBCAZYY NAIL, 6 OR MORE 02/20/2024 69687-XJVWDCC NAIL, 6 OR MORE 06/04/2024 08612-Cpvxgugp Plate 05/21/2019 57088-IVCE SKIN LESIONS, OVER 4 05/21/20 19 66961-UAPW SKIN LESIONS, OVER 4 02/16/20 19 83195-QHLK SKIN LESIONS, OVER 4 03/17/20 24287-YRUO SKIN LESIONS, OVER 4 11/26/19 55860-SMHE SKIN LESIONS, OVER 4 04/09/20 29643-BBVD SKIN LESIONS, OVER 4 12/23/19 88839-ZFYT SKIN LESIONS, OVER 4 09/22/19 66455-ZZBP SKIN LESIONS, OVER 4 06/16/20 79045-AMZL SKIN LESIONS, OVER 4 02/20/20 24 54048-JHCS SKIN LESIONS, OVER 4 11/21/19 24 97477-BFXQ SKIN LESIONS, OVER 4 05/26/20 06684-KQUO SKIN LESIONS, OVER 4 02/25/20 97420-MTZO SKIN LESIONS, OVER 4 11/26/19 72907-DOAV SKIN LESIONS, OVER 4 05/06/20 91091-LOAF SKIN LESIONS, OVER 4 02/19/20 81493-ICFC SKIN LESIONS, OVER 4 11/20/19 13424-PLJZ SKIN LESIONS, OVER 4 11/28/19 19 53066-DCFZ SKIN LESIONS, OVER 4 06/12/20 18 25177-YTEM SKIN LESIONS, OVER 4 03/09/20 18 31838-MTEI SKIN LESIONS, OVER 4 11/11/19 18 92361-JHHP SKIN LESIONS, OVER 4 05/12/20 17 68796-OQPK SKIN LESIONS, OVER 4 11/23/19 17 69577-KXWC SKIN LESIONS, OVER 4 02/22/20 17 10991-SETA SKIN LESIONS, OVER 4 05/24/20 16 47149-UCDM SKIN LESIONS, OVER 4 02/23/20 16 09984-UGUE SKIN LESIONS, OVER 4 11/12/19 15 62174-FUGM SKIN LESIONS, OVER 4 07/04/20 14 81470-CEFV SKIN LESIONS, OVER 4 04/08/20 14 33917-PDZY SKIN LESIONS, OVER 4 11/24/19 16 89010-POVU SKIN LESIONS, OVER 4 08/07/19 16 50919-WBXP SKIN LESIONS, OVER 4 02/11/20 15 73472-LFSX SKIN LESIONS, OVER 4 05/19/20 15 21858-LHBR SKIN LESIONS, OVER 4 06/04/20 24 62895-CGKL SKIN LESIONS, 2 TO 4 01/28/20 14 Next Appt Details Provider Name:Rom Pollock , 11/19/2024 09:00:00 AM, [address] [place], [address], Insurance Providers Payer Name Payer Address Payer Phone Subscriber Number Group Number Insured Name Patient Relationship to Insured Coverage Start Date Coverage End Date [employer] [address] [place] [address] [id number] Chris Avalos Self - patient is the insured Medical (General) History Medical History History ICD Code Arthritis Back,Hip,and Knee pain Chicken pox Fibromyalgia Hypercholesterolemia Hypertension Joint implants/screws Measles Mumps Reflux Gout Diabetic type ll Surgical History Surgery Date(Month/Year) right hip replacement 10/03 stent insertion 04/09 cholecystectomy 08/09 left hip replacement 05/2015 3 stents 04/2018 Cortisone injectionin Knee 11/18/21 Knee Replacement left 04/2022 Hospitalization History Reason Date(Month/Year) [facility] /BP 200 CT scans taken overnight cause too much sun 09/2021 Hip replacement surgery 05/2015
--- OUTSIDE RECORDS SUMMARY | 2024-07-10 22:00 | XMS_ITS ---
Author Organization [facility] [place] Address [address] [place] [address] Care Team Providers Care Critical Care Registered Nurse Name Role Phone Maycol CORTEZ, Bashir Primary Care Provider Unavailab Rom Rose Unavailable [phone] Allergies No Known Allergies REASON FOR VISIT At Risk Footcare Medications Medication SIG (Take, Route, Frequency, Duration) Notes Start Date End Date Status traMADol HCl prn Not-Anuel ing Lyrica 50 MG Orally once in morning Not-Taking Extra Depth Orthopedic Shoes (1 Pair) with Customized Heat Molded Multidensity Innersoles (3 Pair) as directed Dx: NIDDM/Polyneuropath y (E11.42), Hammertoe Foot Deformity (M20.41,M20.42), Preulcerative Skin Lesion(s) (L85.1 11/21/2023 Active hydroCHLOROthiazide 25 MG 1 tablet Oral Not-Taking Nystop 986157 UNIT/GM External Not-Taking Multivitamins Orally 01/27/2014 Activ e metFORMIN HCl Active Sotalol HCl 80 MG 1 tablet Oral every 12 hrs Active Omeprazole 40 MG 1 capsule Orally Once a day Active Tylenol 1000mg bid Active Loratadine 10 MG 1 tablet Orally Once a day 01/27/2014 Active Indomethacin prn Active Lyrica 100 MG 1 capsule Orally once at night Active Glucosamine Active Eliquis Active Amoxicillin 500 MG 1 tablet Oral as needed for dental appts PRN-Dental Active Clopidogrel Bisulfate 75 MG Orally Active Amitriptyline HCl 25 MG Orally Active Co Enzyme Q-10 Activ e Clear Eyes for Dry Eyes Active amLODIPine Besylate 2.5 MG Oral for 30 Active Aspirin 81 MG 1 tablet Orally Once a day 01/27/2014 Active Atorvastatin Calcium 80 MG 1 tablet Orally Active Social History Tobacco Use: Social History Observation Description Date Details (start date - stop date) Never Smoker NA - NA Tobacco Use/Smoking Question Answer Notes Are you a: nonsmoker Additional Findings: Tobacco Non-User Current no n-smoker Tobacco use other than smoking: Question Answer Notes Are you an other tobacco user? No Vital Signs Height 5 ft 8 in in 06/04/2024 Weight 225 lbs 06/04/2024 BMI 34.21 kg/m2 06/04/2024 Blood pressure systolic 134 mm Hg 06/04/20 Blood pressure diastolic 72 mm Hg 024 Procedures Procedure Date Ordered Date Performed Result Body Sit e 70892-IADGXQU NAIL, 6 OR MORE 06/04/2024 N/A 87085-WVEG SKIN LESIONS, OVER 4 06/04/2024 N/A Encounters Encounter Location Date Provider Diagnosis [facility] [address] [address] 06/04/2024 Rom Pollock Type 2 diabetes mellitus with diabetic polyneuropathy E11.42 and Tinea unguium B35.1 Assessments Encounter Date Diagnosis (ICD Code) Assessment Notes Treatment Notes Treatment Clinical Notes Section Notes 06/04/2024 Type 2 diabetes mellitus with diabetic polyneuropathy (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.42) 06/04/2024 Tinea unguium (ICD-10 - B35.1) Plan Of Treatment Pending Test Test Name Order Date 35217-THHGXJY NAIL, 6 OR MORE 06/04/2024 29210-XOVX SKIN LESIONS, OVER 4 06/04/20 24 Next Appt Details Follow Up: prn, Reason: Provider Name:Rom Pollock , 11/19/2024 09:00:00 AM, [address] [place] [address], [phone], Procedure Notes * Category Sub-Category Detail Notes Debride Nail 6-10 Nail debridement Performance o f this nail treatment by a nonprofessional would put this patients foot and overall health at risk. Therefore, nail debridement was performed extensively to reduce/remove overall nail length, girth, thickness, subungual debris, and necrotic tissue, by manual and/or electrical means through the use of a nail nipper and/or dremel-type instrument lens grinder, to a more viable healthy nail plate or bed tissue 6-10. Silver nitrate used for any petechial bleeding as necessary. Definitive antifungal treatment options have been reviewed and discussed with the patient. The patient chooses, no pharmaceutical tx - [address]46 Keratoma Treatment Parring or Cutting o f Benign Hyperkeratotic Lesion(s) (-57) More than 4 Lesions - The Benign hyperkeratotic lesions, as described above were pared, and/or cut utilizing a sterile 15 blade, tissue nippers, and/or dremel - 10316 Progress Notes * Chris HERMOSILLO HDOB: 1 (84 yo M)Acc No.[id number]:06/04/2024 Progress Note Patient:?Chris Hermosillo Provider:?Rom Pollock DPM :1940???Age:84 Y???Sex:Male Filiberto e:06/04/2024 Address:[address] [place], [place] [id number] Pcp:Bashir Severino MD Subjective: * Chief Complaints: * ???At Risk Footcare * HPI: ???At Risk footcare:?Pt States Last PCP Visit:?Date?05/27/2024 * ROS:?General/Constitutional:?Nausea?denies.?Vomiting?denies.?Hunger Thirst?denies.?Loss appetite?denies.?Chills?denies.?Fatigue?admits.?Fever?denies.?Night Sweats?admits.?Unexplained weight loss?denies.?Ophthalmologic:?Blurred [...] Hospitalization/Major Diagno stic Procedure:?Hip [facility] 05/2015[facility]- [place] /BP 200 CT scans taken overnight [...] than smoking?Are you an other tobacco user??No ???Miscellaneous:?Caffeine: yes, frequency:, 2-3 cups per day. ?Children: yes. ?Exercise: yes, housework, Barn, gym. ?Marital status: . ?Occupation: [employer]. * Medications:?TakingamLODIPin e Besylate 2.5 MG Tablet [...] Foot Deformity (M20.41,M20.42), Preulcerative Skin Lesion(s) (L85.1Not-Taking/PRNNystop 608073 UNIT/GM Powder External hydroCHLOROthiazide 25 MG Tablet 1 tablet Oral traMADol HCl , Notes: prnLyrica 50 MG Capsule Orally once in morningMedication List reviewed and reconciled with the patientNot-Taking/PRN Nystop 540970 UNIT/GM Powder External Not-Taking/PRN hydroCHLOROthiazide 25 MG Tablet 1 tablet Oral Not-Taking/PRN traMADol HCl , Notes: prnNot-Taking/PRN Lyrica 50 MG Capsule Orally once in morningMedication List reviewed and reconciled with the patient * Allergies:?N.K.D.A.yes[Aller gies Verified] Objective: * Vitals:?Ht: 5 ft 8 in, Wt: 2 25, BMI: 34.21, Shoe size: 11-11.5, BP: 134/72 mm Hg, BS: not taken, Wt-k.06 kg. * ???Past Orders: ???Lab:HEMOGLOBIN A1C (GLYCO HEMOGLOBIN) (Order Date - 05/27/2024) (Collection Date - 05/27/2024) ? Value Reference Range ?TOTAL HEMOGLOBIN (HGBA1C) 7.2 * Examination: ???Neurological: ?SENSORY:?Neurological exam demonstrates, reduced [...] Plan: * Treatment: * Procedures:?Debride Nail 6-10:?Nail debridement?Performance of this nail treatment by a nonprofessional would put this patients foot and overall health at risk. Therefore, nail debridement was performed extensively to reduce/remove overall nail length, girth, thickness, subungual debris, and necrotic tissue, by manual and/or electrical means through the use of a nail nipper and/or dremel-type instrument lens grinder, to a more viable healthy nail plate or bed tissue 6-10. Silver nitrate used for any petechial bleeding as necessary. Definitive antifungal treatment options have been reviewed and discussed with the patient. The patient chooses, no pharmaceutical tx - 68955.?Keratoma Treatment:?Parring or Cutting of Benign Hyperkeratotic Lesion(s)?(-57) More than 4 Lesions - The Benign hyperkeratotic lesions, as described above were pared, and/or cut utilizing a sterile 15 blade, tissue nippers, and/or dremel - 55378.? * Procedure Codes:?65702 DEBRI DE NAIL, 6 OR MORE, Modifiers: XS 75284 TRIM SKIN LESIONS, OVER 4, Modifiers: XS * Follow Up:?prn * Images: * Sign off status: Completed true * Provider:?Rom Pollock DPM Date:?2023 Generated for Santiago castillo/Robbin/Antelmo on:?07/10/2024 09:59 PM EST History and Physical Notes * HPI (History of Present Illness) Category Sub-Category Detail Notes Category Not es At Risk footcare Pt States Last PCP Visit: Date: Examination Category Sub-Category Detail Notes Category Not [...]
== END 2024-07-09 14:08 | disposition home or self-care (01) ==
LOC: HO.US 14:07
PROVIDERS: PCP Family Medicine; Visit Provider Internal Medicine Nephrology
DX: I12.9 Hypertensive chronic kidney disease with stage 1 through stage 4 chronic kidney disease, or unspecified chronic kidney disease (principal); E11.22 Type 2 diabetes mellitus with diabetic chronic kidney disease; N18.32 Chronic kidney disease, stage 3b
CPT/HCPCS: 76775

== ENCOUNTER 2024-07-17 13:54 | Outpatient (AMB) | payer MEDICARE, SELFPAY ==
--- OUTSIDE RECORDS SUMMARY | 2024-07-17 13:56 | XMS_ITS ---
Author Organization [facility] Address [address] [place] [address] Care Team Providers Care Jewelry Finisher Name Role Phone Bashir Severino MD Primary Care Provider Unavailab dawit Soni Jr, Jayme Cnatu REASON FOR VISIT ov recall Encounters Encounter Location Date Provider Diagnosis [facility] [address] [place] [address] [address] [place] [address] 05/17/2023 Jayme Soni Jr PLAN OF TREATMENT Next Appt Details Provider Name:Jayme barakat Jr, 06/23/2025 09:00:00 AM, [address] [place] [address], [address], [place], [address],
--- OUTSIDE RECORDS SUMMARY | 2024-07-17 13:56 | XMS_ITS ---
Author Organization [facility] Address [address] [place] [address] Care Team Providers Care Surveillance Director Name Role Phone Bashir Severino MD Primary Care Provider UnavailJayme Osorio Jr Unavailable ALLERGIES No Known Allergies REASON [...] 06/24/2024 Encounters Encounter Location Date Provider Diagnosis [facility] [address] [place] [address] 06/24/2024 Jayme Soni Jr Hearn's esophagus without [...] Name:Jayme barakat Jr, 06/23/2025 09:00:00 AM, [address], [address], [place], [address],
--- OUTSIDE RECORDS SUMMARY | 2024-07-17 13:57 | XMS_ITS ---
Author Organization [facility] [place] Address [address] [place] [address] Care Team Providers Care Woven Blind Loom Tender Name Role Phone Maycol CORTEZ, Bashir Primary Care Provider Unavailab Rom Rose Unavailable [phone] REASON FOR VISIT At Risk Footcare Medications Medication SIG (Take, Route, Frequency, Duration) Notes Start Date End Date Status Extra Depth Orthopedic Shoes (1 Pair) with Customized Heat Molded Multidensity Innersoles (3 Pair) as directed Dx: NIDDM/Polyneuropath y (E11.42), Hammertoe Foot Deformity (M20.41,M20.42), Preulcerative Skin Lesion(s) (L85.1 11/21/2023 Active Nystop 240035 UNIT/GM External Not-Taking hydroCHLOROthiazide 25 MG 1 [...] Ordered Date Performed Result Body Sit e 49431-GTCVOQW NAIL, 6 OR MORE 02/20/2024 N/A 01889-PNLZ SKIN LESIONS, OVER 4 02/20/2024 N/A Encounters Encounter Location Date Provider Diagnosis [facility] [place] [address] [place] [address] 02/20/2024 Rom Pollock Type 2 diabetes mellitus with diabetic polyneuropathy E11.42 and Tinea unguium B35.1 Assessments Encounter Date Diagnosis (ICD Code) Assessment Notes Treatment Notes Treatment Clinical Notes Section Notes 02/20/2024 Type 2 diabetes mellitus with diabetic polyneuropathy (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.42) 02/20/2024 Tinea unguium (ICD-10 - B35.1) Plan Of Treatment Pending Test Test Name Order Date 09192-CYUKCEH NAIL, 6 OR MORE 02/20/2024 58092-XSSH SKIN LESIONS, OVER 4 02/20/20 24 Next Appt Details Follow Up: prn, Reason: Provider Name:Rom Pollock , 11/19/2024 09:00:00 AM, [address] [place] [address], [phone], Procedure Notes * Category Sub-Category Detail Notes [...] as necessary. Patient chooses, no pharmaceutical tx (91594) Keratoma Treatment Parring or Cutting o f Benign Hyperkeratotic Lesion(s) 56079 ( >4 Lesions) - The Benign hyperkeratotic lesions, as described above were pared, and/or cut utilizing a sterile #15 blade, tissue nippers, and/or dremel Progress Notes * Chris HERMOSILLO HDOB: 1 (84 yo M)Acc No.[id number]:02/20/2024 Progress Note Patient:?Chris Hermosillo Provider:?Rom Pollock DPM :1940???Age:84 Y???Sex:Male Filiberto e:02/20/2024 Address:[address] [place], [place] [address] Pcp:Bashir Severino MD Subjective: * Chief Complaints: [...] Hospitalization/Major Diagno stic Procedure:?Hip replacement [place] 05/2015[facility]- [place] /BP 200 CT scans taken overnight [...] housework, Barn, gym. ?Marital status: . ?Occupation: [employer]. * Medications:?TakingamLODIPin e Besylate 2.5 MG Tablet [...] Foot Deformity (M20.41,M20.42), Preulcerative Skin Lesion(s) (L85.1Not-Taking/PRNNystop 442959 UNIT/GM Powder External hydroCHLOROthiazide 25 MG Tablet 1 tablet Oral traMADol HCl , Notes: prnLyrica 50 MG Capsule Orally once in morningMedication List reviewed and reconciled with the patientNot-Taking/PRN Nystop 680140 UNIT/GM Powder External Not-Taking/PRN hydroCHLOROthiazide 25 MG [...] as necessary. Patient chooses, no pharmaceutical tx (55055).?Keratoma Treatment:?Parring or Cutting of Benign Hyperkeratotic Lesion(s)?04876 ( >4 Lesions) - The Benign hyperkeratotic lesions, as described above were pared, and/or cut utilizing a sterile #15 blade, tissue nippers, and/or dremel.? * Procedure Codes:?25311 DEBRI DE NAIL, 6 OR MORE, Modifiers: XS 61421 TRIM SKIN LESIONS, OVER 4, Modifiers: XS * Follow Up:?prn * Images: * Sign off status: Completed Addendum: * ? true * Provider:?Rom Pollock DPM Date:?2023 Generated for Santiago castillo/Robbin/Antelmo on:?07/17/2024 01:57 PM EST History and Physical Notes * [...]
--- OUTSIDE RECORDS SUMMARY | 2024-07-17 13:57 | XMS_ITS ---
Author Organization [facility] [place] Address [address] [place] [address] Care Team Providers Care Formula Checker Name Role Phone Maycol CORTEZ, Bashir Primary Care Provider Unavailab Rom Rose Unavailable [phone] Allergies No Known Allergies REASON FOR VISIT [...] 25 MG 1 tablet Oral Not-Taking Nystop 263625 UNIT/GM External Not-Taking Multivitamins Orally 01/27/2014 Activ [...] Ordered Date Performed Result Body Sit e 71796-SGEDEOC NAIL, 6 OR MORE 06/04/2024 N/A 92524-WXOK SKIN LESIONS, OVER 4 06/04/2024 N/A Encounters Encounter Location Date Provider Diagnosis [facility] [address] [address] 06/04/2024 Rom Pollock Type 2 diabetes mellitus with diabetic polyneuropathy E11.42 and Tinea unguium B35.1 Assessments Encounter Date Diagnosis (ICD Code) Assessment Notes Treatment Notes Treatment Clinical Notes Section Notes 06/04/2024 Type 2 diabetes mellitus with diabetic polyneuropathy (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.42) 06/04/2024 Tinea unguium (ICD-10 - B35.1) Plan Of Treatment Pending Test Test Name Order Date 48812-YQHSVUK NAIL, 6 OR MORE 06/04/2024 14103-XDNS SKIN LESIONS, OVER 4 06/04/20 24 Next Appt Details Follow Up: prn, Reason: Provider Name:Rom Pollock , 11/19/2024 09:00:00 AM, [address] [place] [address], [phone], Procedure Notes * Category Sub-Category Detail Notes Debride Nail 6-10 Nail debridement Performance o f this nail treatment by a nonprofessional would put this patients foot and overall health at risk. Therefore, nail debridement was performed extensively to reduce/remove overall nail length, girth, thickness, subungual debris, and necrotic tissue, by manual and/or electrical means through the use of a nail nipper and/or dremel-type drier and grinder tender, to a more viable healthy nail plate or bed tissue 6-10. Silver nitrate used for any petechial bleeding as necessary. Definitive antifungal treatment options have been reviewed and discussed with the patient. The patient chooses, no pharmaceutical tx - 13166 Keratoma Treatment Parring or Cutting o f Benign Hyperkeratotic Lesion(s) (-57) More than 4 Lesions - The Benign hyperkeratotic lesions, as described above were pared, and/or cut utilizing a sterile 15 blade, tissue nippers, and/or dremel - 50485 Progress Notes * Chris HERMOSILLO HDOB: 1 (84 yo M)Acc No.[id number]:06/04/2024 Progress Note Patient:?Chris Hermosillo Provider:?Rom Pollock DPM :1940???Age:84 Y???Sex:Male Filiberto e:06/04/2024 Address:[address] [place], [place] [address] Pcp:Bashir Severino MD Subjective: * Chief Complaints: [...] Hospitalization/Major Diagno stic Procedure:?Hip [place] 05/2015[facility]- [place] /BP 200 CT scans taken overnight [...] housework, Barn, gym. ?Marital status: . ?Occupation: [employer]. * Medications:?TakingamLODIPin e Besylate 2.5 MG Tablet [...] Foot Deformity (M20.41,M20.42), Preulcerative Skin Lesion(s) (L85.1Not-Taking/PRNNystop 447573 UNIT/GM Powder External hydroCHLOROthiazide 25 MG Tablet 1 tablet Oral traMADol HCl , Notes: prnLyrica 50 MG Capsule Orally once in morningMedication List reviewed and reconciled with the patientNot-Taking/PRN Nystop 802722 UNIT/GM Powder External Not-Taking/PRN hydroCHLOROthiazide 25 MG [...] use of a nail nipper and/or dremel-type drier and grinder tender, to a more viable healthy nail plate or bed tissue 6-10. Silver nitrate used for any petechial bleeding as necessary. Definitive antifungal treatment options have been reviewed and discussed with the patient. The patient chooses, no pharmaceutical tx - 44748.?Keratoma Treatment:?Parring or Cutting of Benign Hyperkeratotic Lesion(s)?(-57) More than 4 Lesions - The Benign hyperkeratotic lesions, as described above were pared, and/or cut utilizing a sterile 15 blade, tissue nippers, and/or dremel - 72326.? * Procedure Codes:?74170 DEBRI DE NAIL, 6 OR MORE, Modifiers: XS 45199 TRIM SKIN LESIONS, OVER 4, Modifiers: XS [...]
--- OUTSIDE RECORDS SUMMARY | 2024-07-17 13:57 | XMS_ITS ---
Author Organization [facility] Address [address] [place] [address] Care Team Providers Care Vending Machine Repairer Name Role Phone Bashir Severino MD Primary Care Provider Unavailab Jayme Guzman Jr Unavailable [phone] ALLERGIES No Known Allergies REASON FOR VISIT [...] Gastroes ophageal reflux disease with esophagitis (disorder) (606189976) VITAL SIGNS BMI 34.14 kg/m2 05/17/2023 Blood pressure systolic 000 mm Hg 05/17/20 23 Blood pressure diastolic 00 mm Hg 023 Height 67 in 05/17/2023 Temperature 98.2 degrees Fahrenheit 05/17/20 23 Weight 218 lbs 05/17/2023 Encounters Encounter Location Date Provider Diagnosis [facility] [address] [facility] [address] [place] [address] 05/17/2023 Jayme Soni Jr Osorio's esophagus without [...] Name:Jayme barakat Jr, 06/23/2025 09:00:00 AM, [address] [facility], [address], [place], [address],
--- OUTSIDE RECORDS SUMMARY | 2024-07-17 13:57 | XMS_ITS ---
Author Organization [facility] miguel Counselor Address [address] [place] [address] Care Team Providers Care Mend Worker Name Role Phone Maycol CORTEZ, Bashir Primary Care Provider Unavailab Rom Rose Unavailable [phone] Allergies No Known Allergies REASON FOR VISIT [...] tablet Oral every 12 hrs Active Nystop 828346 UNIT/GM External Not-Taking Tylenol 1000mg bid Active [...] Ordered Date Performed Result Body Sit e 47981-KYLNGYL NAIL, 6 OR MORE 11/21/2023 N/A 46971-UUYD SKIN LESIONS, OVER 4 11/21/2023 N/A Encounters Encounter Location Date Provider Diagnosis [facility] [address] [address] 11/21/2023 Rom Pollock Type 2 diabetes mellitus [...] INSTRUCTIONS.pdf) Pending Test Test Name Order Date 48323-XFULBEV NAIL, 6 OR MORE 11/21/2023 90919-TZXZ SKIN LESIONS, OVER 4 11/21/19 24 Next Appt Details Follow Up: prn, Reason: Provider Name:Rom Pollock , 11/19/2024 09:00:00 AM, [address] [place] [address], [phone], Procedure Notes * Category Sub-Category Detail Notes [...] as necessary. Patient chooses, no pharmaceutical tx (03715) Keratoma Treatment Parring or Cutting o f Benign Hyperkeratotic Lesion(s) 35578 ( >4 Lesions) - The Benign hyperkeratotic lesions, as described above were pared, and/or cut utilizing a sterile #15 blade, tissue nippers, and/or dremel Progress Notes * BAYStevenh HDOB: 1 (83 yo M)Acc No.[id number]:11/21/2023 Progress Note Patient:?Chris Avalos Provider:?Rom Pollock DPM :1940???Age:83 Y???Sex:Male Filiberto e:11/21/2023 Address:[address] [place] [address] Pcp:Bashir Severino MD Subjective: * Chief Complaints: [...] Hospitalization/Major Diagno stic Procedure:?Hip replacement surgery 05/2015[place] [facility]- [place] /BP 200 CT scans taken [...] housework, Barn, gym. ?Marital status: . ?Occupation: [employer]. * Medications:?TakingamLODIPin e Besylate 2.5 MG Tablet [...] Oral every 12 hrsTaking Tylenol 1000mg bidNot-Taking/PRNNystop 313042 UNIT/GM Powder External hydroCHLOROthiazide 25 MG Tablet 1 tablet Oral traMADol HCl , Notes: prnLyrica 50 MG Capsule Orally once in morningMedication List reviewed and reconciled with the patientNot-Taking/PRN Nystop 654075 UNIT/GM Powder External Not-Taking/PRN hydroCHLOROthiazide 25 MG [...] as necessary. Patient chooses, no pharmaceutical tx (85357).?Keratoma Treatment:?Parring or Cutting of Benign Hyperkeratotic Lesion(s)?40843 ( >4 Lesions) - The Benign hyperkeratotic lesions, as described above were pared, and/or cut utilizing a sterile #15 blade, tissue nippers, and/or dremel.? * Procedure Codes:?20152 DEBRI DE NAIL, 6 OR MORE, Modifiers: XS 09016 TRIM SKIN LESIONS, OVER 4, Modifiers: XS [...] Pollock DPM Date:?2023 Generated for Santiago castillo/Robbin/Aprilitting on:?07/17/2024 01:57 PM EST History and Physical [...] Diabetic Eye Exam:: retinopa thy Vascular DP PULSES (B): 1/4, B/L PT PULSES (B): 1/4, B/L CAPILLARY FILL TIME: 3 secs. per digit, B/L TEMPERTURE GRADIENT (C): decreased, cool to cool, proximal to distal, B/L TROPHIC CONDITION-TEXTURE/ELASTICITY/TURGOR/HAIR GROWTH (B): decreased, B/L EDEMA (C): 2/4, non-pitting, wi thout aching pain, B/L, Ankle(s) PIGMENTATION: mottled, B/L Nails NAILS are: Elongated, overg rown, dystrophic, lytic, greater than 3mm thick, discolored and friable with crumbly malodorous subungual debris, 1-5 B/L
--- OUTSIDE RECORDS SUMMARY | 2024-07-17 13:57 | XMS_ITS | Patient Health Record ---
Author Organization [facility] Address [address] [place] [address] Care Team Providers Care Base Remover Name Role Phone Bahsir Severino MD Primary Care Provider Unavailab Jayme [...] Problem Colon cancer screening (Z12.11) Active confirmed 192008392 Problem Gastro-esophageal reflux disease with esophagitis (K21.0) Active confirmed 725467287 Problem Osorio's esophagus without dysplasia (K22.70) Active confirmed 471404964 Problem Rectal urgency (R15.2) Active confirmed 99150296 Problem Throat pain (R07.0) Active confirmed 16 9976971 Problem Diarrhea, unspecified type (R19.7) Active confirmed 99421233 Problem Gastro-esophageal reflux disease with esophagitis, with bleeding (K21.01) Active confirmed Problem Gastroesophageal reflux disease with esophagitis, unspecified whether hemorrhage (K21.00) Active confirmed Gastroes ophageal reflux disease with esophagitis (disorder) (014777357) VITAL SIGNS Temperature 98.6 degrees Fahrenheit 06/24/2024 Blood pressure diastolic 00 mm Hg 06/24/2024 Height 67 in 06/24/2024 Blood pressure systolic 000 mm Hg 06/24/2024 Weight 230 lbs 06/24/2024 BMI 36.02 kg/m2 06/24/2024 Encounters Encounter Location Date Provider Diagnosis [facility] [address] [place] [address] 06/24/2024 Jayme Soni Jr Osorio's esophagus without [...] Name:Jayme oneilmaryanne Whitley, 06/23/2025 09:00:00 AM, [address] [facility], [address], [place], [address], Insurance Providers Payer Name Payer Address Payer Phone Subscriber Number Group Number Insured Name Patient Relationship to Insured Coverage Start Date Coverage End Date [facility] [address] [place] [address] [phone] [id number] TERRI HERMOSILLO Self - patient is the [...]
--- OUTSIDE RECORDS SUMMARY | 2024-07-17 13:58 | XMS_ITS | Continuity of Care Document ---
Author Organization [facility] Address [address] [place] [phone] Phone Care Team Providers Care Development Coach Name Role Phone Clark Lacey MD Unavailable [...] Abnormal Flag Status Commen ts Panel Description: [id number] Final Image Zeiss Result 1 Advance Directives Directive Yes / No Effective Date File Name No Information Encounters Encounter Description Practice Location Reason(s) For Visit Diagnoses Date Provider Providers Copied on Encounter [facility], [address] [place], [place], [id number] , [place] tel: [phone] [facility] [place] WAMD (chief complaint) Exudative age-related macular degeneration, left eye, with active choroidal neovascularization 4 Abhijit Rodas. [address] [place], [address], [place]. tel: [phone] Referring Provider: Clark Lacey, [address] [place], [address]. tel:[phone] E&M est moderate complexity [facility], [address] [place], [place], [id number] , [place] tel: [phone] [facility] [place] WAMD (chief complaint) Exudative age-related macular degeneration, right eye, with active choroidal neovascularizationExu dative age-related macular degeneration, left eye, with active choroidal neovascularization 4 Abhijit Rodas. [address] [place], [address], [place]. tel: [phone] Referring Provider: Clark Lacey, [address] [place], [address]. tel:[phone] [facility], [address], [place], [place], [id number] , [place] tel:[phone] [facility] (chief complaint) Exudative age-related macular degeneration, right eye, with active choroidal neovascularizationVit reous degeneration, bilateralNonexudative age-related macular degeneration, left eye, intermediate dry stage Sep- 3 Abhijit Rodas. [address] [place], [address], [place]. tel:[phone] Referring Provider: Clark Lacey, [address] [place], [address]. tel:[phone] [facility], [address], [place], [place], [id number] , [place] tel: [phone] [facility] WAMD w/ SRH (chief complaint) Exudative age-related macular degeneration, right eye, with active choroidal neovascularization Aug- 3 Abhijit Rodas. [address] [place], [address], [place]. tel: [phone] Referring Provider: Clark Lacey, [address] [place], [address]. tel:[phone] E&M New moderate complexity [facility], [address], [place], [place], [id number] , [place] tel: [phone] [facility] (chief complaint) Exudative age-related macular degeneration, right eye, with active choroidal neovascularizationNon exudative age-related macular degeneration, left eye, intermediate dry stageVitreous degeneration, bilateral 3 Abhijit Rodas. [address] [place], [address], [place]. tel: [phone] Referring Provider: Clark Lacey, [address] [place], [address]. tel:[phone] Family History Family Member Type Diagnosis Age At Onset No Information Immunizations Vaccine Date Status Comments Flu (split) (3 yrs or older) administered Source: Other Provider Pneumo (2 yrs or older)(PPV) administered Source: Other Provider Flu (split) (3 yrs or older) administered Source: Other Provider Payers Payer name Insurance type Covered libertarian ID Naomy cuellar(dipti) [employer] [place] 16 [id number] [address] [id number] Social History Type Description Quantity Date Captured [...] [place] OD at all, pt went to [facility] to get new glasses mainly for OS [...]
--- OUTSIDE RECORDS SUMMARY | 2024-07-17 13:58 | XMS_ITS | Patient Health Record ---
Author Organization [facility] miguel Tate Address [address] [place] [address] Care Team Providers Care Web Services Architect Name Role Phone Bashir Severino MD Primary Care Provider Unavailab Rom Rose Unavailable [phone] Allergies No Known Allergies Results Component Value [...] 1 tablet Oral Not-Taking Eliquis Active Nystop 118896 UNIT/GM External Not-Taking amLODIPine Besylate 2.5 MG [...] Unknown 05/28/2021 Administered Influenza Unknown 06/30/2022 Administered Social History Tobacco Use: Social History Observation [...] Problem Acquired hammer toe of right foot (1581727402408649 ) Other hammer toe(s) (acquired), right foot (M20.41) Active confirmed Problem Acquired hammer toe of left foot (9440368306568311 ) Other hammer toe(s) (acquired), left foot (M20.42) Active confirmed Problem Polyneuropathy due to type 2 diabetes mellitus (434878093) Type 2 diabetes mellitus with diabetic polyneuropathy (E11.42) Active confirmed Vital Signs Blood pressure diastolic 72 mm Hg 06/04/2024 Height 5 ft 8 in in 06/04/2024 Blood pressure systolic 134 mm Hg 06/04/2024 Weight 225 lbs 06/04/2024 BMI 34.21 kg/m2 06/04/2024 Procedures Procedure Date Ordered Date Performed Result Body Sit e 75906-XGYCNFY NAIL, 6 OR MORE 11/21/2023 N/A 23800-SLPI SKIN LESIONS, OVER 4 11/21/2023 N/A 82106-QBUPCFM NAIL, 6 OR MORE 02/20/2024 N/A 09002-EFCM SKIN LESIONS, OVER 4 02/20/2024 N/A 21739-IGGPTQF NAIL, 6 OR MORE 06/04/2024 N/A 70712-FMVP SKIN LESIONS, OVER 4 06/04/2024 N/A Encounters Encounter Location Date Provider Diagnosis [address] [address] 11/21/2023 Rom Maris Type 2 diabetes mellitus with diabetic polyneuropathy E11.42 ; Onychomycosis B35.1 ; Other hammer toe(s) (acquired), right foot M20.41 and Other hammer toe(s) (acquired), left foot M20.[address] [address] 02/20/2024 Rom Maris Type 2 diabetes mellitus with diabetic polyneuropathy E11.42 and Tinea unguium B35.[address] [address] 06/04/2024 Romsheryl WootenMaris Type 2 diabetes mellitus [...] Date Hemoglobin A1c 02/10/2015 Hemoglobin A1c 05/19/2015 01731-VJGVCFZ NAIL, 6 OR MORE 02/10/2015 52579-JFOPRBL NAIL, 6 OR MORE 05/19/2015 99207-QYZPNUY NAIL, 6 OR MORE 08/07/2015 35673-NZNOAWP NAIL, 6 OR MORE 11/24/2015 82415-LMKZZOK NAIL, 6 OR MORE 01/27/2014 97214-BTYXBCJ NAIL, 6 OR MORE 04/08/2014 17216-PPZIGDG NAIL, 6 OR MORE 07/04/2014 77573-FHOUFUV NAIL, 6 OR MORE 11/11/2014 14750-VOGNNQT NAIL, 6 OR MORE 02/23/2016 37249-UFUWDPY NAIL, 6 OR MORE 05/24/2016 90495-XWEGCHJ NAIL, 6 OR MORE 11/22/2016 86004-VXPQNGD NAIL, 6 OR MORE 02/21/2017 37101-QGQOUVO NAIL, 6 OR MORE 05/12/2017 90913-CWJOIMO NAIL, 6 OR MORE 11/10/2017 71227-IHDDQTK NAIL, 6 OR MORE 03/09/2018 96567-QNPSAQO NAIL, 6 OR MORE 06/12/2018 43352-WDNPIAJ NAIL, 6 OR MORE 11/27/2018 15845-RWCBLXF NAIL, 6 OR MORE 02/15/2019 26138-EHLIGSG NAIL, 6 OR MORE 05/21/2019 85207-RNKBSBT NAIL, 6 OR MORE 11/26/2019 80387-ZSRTPQQ NAIL, 6 OR MORE 03/17/2020 87015-EDQEWWW NAIL, 6 OR MORE 06/16/2020 17610-MIKMOPM NAIL, 6 OR MORE 09/22/2020 58600-UDEAQGI NAIL, 6 OR MORE 12/22/2020 73044-LWDDRHG NAIL, 6 OR MORE 04/09/2021 88963-WAORERF NAIL, 6 OR MORE 11/19/2021 53391-RSNZOFX NAIL, 6 OR MORE 02/18/2022 39145-ZSLZNGO NAIL, 6 OR MORE 05/06/2022 67354-ICMJEHJ NAIL, 6 OR MORE 11/25/2022 06568-SVWTRQA NAIL, 6 OR MORE 02/24/2023 85499-PUGUUOS NAIL, 6 OR MORE 05/26/2023 56977-PKSFUUK NAIL, 6 OR MORE 11/21/2023 16715-GVKMPGG NAIL, 6 OR MORE 02/20/2024 98422-PYZDMGG NAIL, 6 OR MORE 06/04/2024 97941-Moxoefyp Plate 05/21/2019 69092-EXRJ SKIN LESIONS, OVER 4 05/21/20 19 45878-FBFH SKIN LESIONS, OVER 4 02/16/20 19 85890-CUQK SKIN LESIONS, OVER 4 03/17/20 03226-VLKS SKIN LESIONS, OVER 4 11/26/19 77848-FTAG SKIN LESIONS, OVER 4 04/09/20 90581-JTUR SKIN LESIONS, OVER 4 12/23/19 98119-CJJE SKIN LESIONS, OVER 4 09/22/19 98164-KKLT SKIN LESIONS, OVER 4 06/16/20 27084-FQRD SKIN LESIONS, OVER 4 02/20/20 24 81218-DIYH SKIN LESIONS, OVER 4 11/21/19 24 74185-IKNV SKIN LESIONS, OVER 4 05/26/20 89830-XKGW SKIN LESIONS, OVER 4 02/25/20 48293-ZBVZ SKIN LESIONS, OVER 4 11/26/19 81669-DBZH SKIN LESIONS, OVER 4 05/06/20 33789-IBUE SKIN LESIONS, OVER 4 02/19/20 93192-IDWT SKIN LESIONS, OVER 4 11/20/19 22740-IOXR SKIN LESIONS, OVER 4 11/28/19 19 92651-ITFU SKIN LESIONS, OVER 4 06/12/20 18 46428-DHPS SKIN LESIONS, OVER 4 03/09/20 18 55122-HLIC SKIN LESIONS, OVER 4 11/11/19 18 08434-OULG SKIN LESIONS, OVER 4 05/12/20 17 09298-UMTQ SKIN LESIONS, OVER 4 11/23/19 17 38281-BXSZ SKIN LESIONS, OVER 4 02/22/20 17 39853-FTHX SKIN LESIONS, OVER 4 05/24/20 16 20257-UJKK SKIN LESIONS, OVER 4 02/23/20 16 30662-IRLN SKIN LESIONS, OVER 4 11/12/19 15 11094-TYMG SKIN LESIONS, OVER 4 07/04/20 14 26763-KHHH SKIN LESIONS, OVER 4 04/08/20 14 35512-XLJQ SKIN LESIONS, OVER 4 11/24/19 16 38666-DRDR SKIN LESIONS, OVER 4 08/07/19 16 17140-GDPU SKIN LESIONS, OVER 4 02/11/20 15 43543-VNDY SKIN LESIONS, OVER 4 05/19/20 15 73024-MQIA SKIN LESIONS, OVER 4 06/04/20 24 71912-VAST SKIN LESIONS, 2 TO 4 01/28/20 14 Next Appt Details Provider Name:Rom Pollock , 11/19/2024 09:00:00 AM, [address] [place], [address], Insurance Providers Payer Name Payer Address Payer Phone Subscriber Number Group Number Insured Name Patient Relationship to Insured Coverage Start Date Coverage End Date [employer] [address] [place] [address] [id number] Chris Avalos Self - patient is the [...] Replacement left 04/2022 Hospitalization History Reason Date(Month/Year) [facility]- D jose /BP 200 CT scans taken overnight cause too much sun 09/2021 Hip replacement surgery 05/2015
[2024-07-17 14:06] VITALS: BP 130/50; PULSE 63; O2SAT 96; BMI 34.9
--- NOTE | 2024-07-17 14:06 | HO.NEPHOV ---
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 He is 84 years of age with Diabetes for a long time. His blood sugar has been poorly controlled. He still is on metformin and was started on any SGLT2 i at the last visit. He has CAD as well as hypertension. He carried a diagnosis of diabetic nephropathy. He denied any new bone or back pain. His BP has been well controlled. He denies taking excess NSAID's. He denied any nephrotic range proteinuria or cardiomyopathy. He denies any epistaxis, photosensitivity, hematuria, sinusitis, hemoptysis, new skin rashes or joint swelling. His recent serum creatinine has gone over 2.0 PFSH Medical History (Updated 06/27/24 @ 12:40 by Mars Rodas MD) Other fatigue Other idiopathic peripheral autonomic neuropathy Essential (primary) hypertension Gastro-esophageal reflux disease without esophagitis Intrinsic (allergic) eczema Pruritus, unspecified Benign prostatic hyperplasia without lower urinary tract symptoms Type 2 diabetes mellitus with diabetic nephropathy Venous insufficiency (chronic) (peripheral) Chronic kidney disease, stage 3a Atherosclerotic heart disease of [place] coronary artery without angina pectoris Type 2 diabetes mellitus with diabetic polyneuropathy Obstructive sleep apnea (adult) (pediatric) Impacted cerumen of both ears Essential tremor Ventricular premature depolarization Pure hyperglyceridemia Pure hypercholesterolemia, unspecified Pain in right knee Hyperkalemia Acute metabolic acidosis Ataxic gait Hypertension PAF (paroxysmal atrial fibrillation) Stable angina Surgical History Hx of cholecystectomy History of cardiac cath History of total right knee replacement History of hip surgery Family History Father No problems noted. Mother No problems noted. Social History Alcohol intake: current Alcohol intake frequency: holidays/special occasions only Patient Tobacco Use Status: Former Tobacco user Years Smoked: 5 +/- Review of Systems Const All systems reviewed & are unremarkable except as noted in HPI and below Physical Exam Vital Signs: Last Vital Signs Pulse 63 07/17/24 14:06 BP 130/50 L 07/17/24 14:06 Pulse Ox 96 07/17/24 14:06 Oxygen Delivery Method Room Air 07/17/24 14:06 BMI result Body Mass Index 34.9 Const General: comfortable and no acute distress Orientation/consciousness: patient oriented x3 HEENT Head: Yes normocephalic Mouth: Normal oral and palatal mucosa present Eyes EOM: EOMs intact bilaterally Neck Neck: Yes supple Resp Auscultation: clear to auscultation bilaterally Cardio Jugular venous distension: no JVD Rate: regular rate GI Palpation (GI): Soft to palpation Auscultation: normal bowel sounds General: Yes no CVA tenderness Back/Spine/Pelvis Back: no CVA tenderness Skin General skin exam: no rashes or lesions noted Neuro General: patient oriented x3 and moves all extremities Extrem General: Yes no pedal edema Results Reviewed Nephrology Results: Renal US 07/09/24 Assessment & Plan Assessment & Plan (1) 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 He is not on ACEI/ARB. He does not take excess NSAID's. He can continue on Jardiance which I plan to maximize with time. I may consider cutting back his metformin. He needs to loose weight, keep his BS better controlled and keep his BP at goal. I held his fenofibrate and asked him to take PPI PRN. He needs to avoid NSAID's and maintain good hydration. He may need a renal biopsy. I have ordered repeat serum creatinine in 2 months and in 4 months. All these have been explained in detail. Answered all his questions. F/U given Orders: Orders Creatinine 4 Months E11.22 - Type 2 diabetes mellitus with diabetic chronic kidney disease, N18.32 - Chronic kidney disease, stage 3b Blood Urea Nitrogen 4 Months E11.22 - Type 2 diabetes mellitus with diabetic chronic kidney disease, N18.32 - Chronic kidney disease, stage 3b Electrolytes 4 Months E11.22 - Type 2 diabetes mellitus with diabetic chronic kidney disease, N18.32 - Chronic kidney disease, stage 3b Hemoglobin A1c 4 Months E11. - Type 2 diabetes mellitus with diabetic chronic kidney disease, N18.32 - Chronic kidney disease, stage 3b Creatinine 2 Months E11. - Type 2 diabetes mellitus with diabetic chronic kidney disease, N18.32 - Chronic kidney disease, stage 3b Complete Blood Count Auto Diff 4 Months E11. - Type 2 diabetes mellitus with diabetic chronic kidney disease, N18.32 - Chronic kidney disease, stage 3b Prothrombin Time INR 4 Months E11. 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
== END 2024-07-17 14:46 | disposition home or self-care (01) ==
PROVIDERS: PCP Family Medicine; Visit Provider Internal Medicine Nephrology
DX: E11.22 Type 2 diabetes mellitus with diabetic chronic kidney disease (principal); N18.32 Chronic kidney disease, stage 3b
CPT/HCPCS: 99214

== ENCOUNTER → 2024-07-17 13:54 | Outpatient (BNVA) | payer MEDICARE, SELFPAY | PROVIDERS: PCP Family Medicine; Visit Provider Internal Medicine Nephrology | DX: E11.22 Type 2 diabetes mellitus with diabetic chronic kidney disease (principal); N18.32 Chronic kidney disease, stage 3b | CPT/HCPCS: 99212 ==

== ENCOUNTER 2024-11-08 10:23 | Outpatient (AMB) | payer MEDICARE, SELFPAY ==
--- NOTE | 2024-11-08 10:25 | HO.NEPHOV_ITS ---
Vital Signs 11/08/24 10:26 Height 5 ft 8 in Weight 232 lb 2 oz BMI 35.3 BP 132/64 Blood Pressure Location Rt brachial Position Sitting Pulse 61 Pulse Source Pulse Oximeter Pulse Oximetry (%) 95 Intake Visit Reasons: Hypertension-Conf Masticator Required: No Accompanied by: Spouse Allergies No Known Allergies Allergy (Verified 11/08/24 10:28) Do you need a note to return to daycare/school/sports/work: No HPI Comments Details: Richard was seen ,accompanied by his , was seen in follow up for worsening renal function. He is 84 years of age with Diabetes for a long time. His blood sugar has been poorly controlled. He still is on metformin and was started on any SGLT2 i at the last visit. He has CAD as well as hypertension. He carried a diagnosis of diabetic nephropathy. He denied any new bone or back pain. His BP has been well controlled. He denies taking excess NSAID's. He denied any nephrotic range proteinuria or cardiomyopathy. He denies any epistaxis, photosensitivity, hematuria, sinusitis, hemoptysis, new skin rashes or joint swelling. His recent serum creatinine has gone over 2.0. He has been having vascular symptoms in [facility] Medical History Other fatigue Other idiopathic peripheral autonomic neuropathy Essential (primary) hypertension Gastro-esophageal reflux disease without esophagitis Intrinsic (allergic) eczema Pruritus, unspecified Benign prostatic hyperplasia without lower urinary tract symptoms Type 2 diabetes mellitus with diabetic nephropathy Venous insufficiency (chronic) (peripheral) Chronic kidney disease, stage 3a Atherosclerotic heart disease of [place] coronary artery without angina pectoris Type 2 diabetes mellitus with diabetic polyneuropathy Obstructive sleep apnea (adult) (pediatric) Impacted cerumen of both ears Essential tremor Ventricular premature depolarization Pure hyperglyceridemia Pure hypercholesterolemia, unspecified Pain in right knee Hyperkalemia Acute metabolic acidosis Ataxic gait Hypertension PAF (paroxysmal atrial fibrillation) Stable angina Surgical History Hx of cholecystectomy History of cardiac cath History of total right knee replacement History of hip surgery Family History Father No problems noted. Mother No problems noted. Social History Alcohol intake: current Alcohol intake frequency: holidays/special occasions only Patient Tobacco Use Status: Former Tobacco user Years Smoked: 5 +/- Review of Systems Const All systems reviewed & are unremarkable except as noted in HPI and below Physical Exam Vital Signs: Last Vital Signs Pulse 61 11/08/24 10:26 BP 132/64 11/08/24 10:26 Pulse Ox 95 11/08/24 10:26 BMI result Body Mass Index 35.3 Const General: comfortable and no acute distress Orientation/consciousness: patient oriented x3 HEENT Head: Yes normocephalic Mouth: Normal oral and palatal mucosa present Eyes EOM: EOMs intact bilaterally Neck Neck: Yes supple Resp Auscultation: clear to auscultation bilaterally Cardio Jugular venous distension: no JVD Rate: regular rate GI Palpation (GI): Soft to palpation Auscultation: normal bowel sounds General: Yes no CVA tenderness Back/Spine/Pelvis Back: no CVA tenderness Skin General skin exam: no rashes or lesions noted Neuro General: patient oriented x3 and moves all extremities Extrem General: Yes no pedal edema Results Reviewed Nephrology Results: Renal US 07/09/24 Assessment & Plan Assessment & Plan (1) PAD (peripheral artery disease): Code(s): I73.9 - Peripheral vascular disease, unspecified Category: Medical (2) 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 He is not on ACEI/ARB. He does not take excess NSAID's. He can continue on Jardiance which I plan to maximize with time. I may consider cutting back his metformin. He needs to loose weight, keep his BS better controlled and keep his BP at goal. He needs to avoid NSAID's and maintain good hydration. He may need a renal biopsy. All these have been explained in detail. Answered all his questions. 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
[2024-11-08 10:26] VITALS: BP 132/64; PULSE 61; O2SAT 95; BMI 35.3
--- OUTSIDE RECORDS SUMMARY | 2024-11-08 11:12 | XMS_ITS | Patient Health Record ---
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 Name Role Phone Bashir Severino MD Primary Care Provider Unavailab Rom Rose Unavailable [phone] Allergies No Known Allergies Results Component Value [...] 1 tablet Oral Not-Taking Eliquis Active Nystop 029378 UNIT/GM External Not-Taking amLODIPine Besylate 2.5 MG [...] Problem Acquired hammer toe of right foot (7459455328896926 ) Other hammer toe(s) (acquired), right foot (M20.41) Active confirmed Problem Acquired hammer toe of left foot (8551311634592123 ) Other hammer toe(s) (acquired), left foot (M20.42) Active confirmed Problem Polyneuropathy due to type 2 diabetes mellitus (217693502) Type 2 diabetes mellitus with diabetic polyneuropathy (E11.42) Active confirmed Vital Signs Blood pressure diastolic 72 mm Hg 06/04/2024 Height 5 ft 8 in in 06/04/2024 Blood pressure systolic 134 mm Hg 06/04/2024 Weight 225 lbs 06/04/2024 BMI 34.21 kg/m2 06/04/2024 Procedures Procedure Date Ordered Date Performed Result Body Sit e 21068-QGLOGUF NAIL, 6 OR MORE 11/21/2023 N/A 52555-FRYY SKIN LESIONS, OVER 4 11/21/2023 N/A 87310-PTKHCLV NAIL, 6 OR MORE 02/20/2024 N/A 45382-CXHW SKIN LESIONS, OVER 4 02/20/2024 N/A 20229-PXOKIYA NAIL, 6 OR MORE 06/04/2024 N/A 75661-RXJW SKIN LESIONS, OVER 4 06/04/2024 N/A Encounters Encounter Location Date Provider Diagnosis [address] [address] 11/21/2023 Rom Pollock Type 2 diabetes mellitus with diabetic polyneuropathy E11.42 ; Onychomycosis B35.1 ; Other hammer toe(s) (acquired), right foot M20.41 and Other hammer toe(s) (acquired), left foot M20.[address] [address] 02/20/2024 Romsheryl Pollock Type 2 diabetes mellitus with diabetic polyneuropathy E11.42 and Tinea unguium B35.[address] [address] 06/04/2024 Rom Pollock Type 2 diabetes mellitus with diabetic polyneuropathy E11.42 and Tinea unguium B35.[address] [address] 10/11/2024 Romsheryl Morrowier Assessments Encounter Date Diagnosis (ICD Code) Assessment [...] Date Hemoglobin A1c 02/10/2015 Hemoglobin A1c 05/19/2015 47584-IJOGPZP NAIL, 6 OR MORE 02/10/2015 16152-DMKVZJQ NAIL, 6 OR MORE 05/19/2015 42538-EYMVLDT NAIL, 6 OR MORE 08/07/2015 87356-QYKJXOR NAIL, 6 OR MORE 11/24/2015 33738-USBBLTW NAIL, 6 OR MORE 01/27/2014 47493-FVTCTLK NAIL, 6 OR MORE 04/08/2014 75899-UWCVJOJ NAIL, 6 OR MORE 07/04/2014 43368-WXDXFYM NAIL, 6 OR MORE 11/11/2014 65306-TNSNNZP NAIL, 6 OR MORE 02/23/2016 31601-FIDYCFC NAIL, 6 OR MORE 05/24/2016 65587-UMSYNUZ NAIL, 6 OR MORE 11/22/2016 15916-OPNDSGD NAIL, 6 OR MORE 02/21/2017 00631-YGTNDGH NAIL, 6 OR MORE 05/12/2017 19816-YEMQRHC NAIL, 6 OR MORE 11/10/2017 13687-UYXNFPE NAIL, 6 OR MORE 03/09/2018 29811-IGZLVIY NAIL, 6 OR MORE 06/12/2018 85607-IXORWDP NAIL, 6 OR MORE 11/27/2018 46301-EKMUUXK NAIL, 6 OR MORE 02/15/2019 98746-WOXQLQP NAIL, 6 OR MORE 05/21/2019 27158-VILZLBZ NAIL, 6 OR MORE 11/26/2019 34101-TDTDYUI NAIL, 6 OR MORE 03/17/2020 93899-NGMSUFX NAIL, 6 OR MORE 06/16/2020 94901-BKVGZQE NAIL, 6 OR MORE 09/22/2020 45046-SPZSSZA NAIL, 6 OR MORE 12/22/2020 48665-KMNGURL NAIL, 6 OR MORE 04/09/2021 02856-SHFWBKC NAIL, 6 OR MORE 11/19/2021 54004-LBBKNWH NAIL, 6 OR MORE 02/18/2022 02583-JWWMHNY NAIL, 6 OR MORE 05/06/2022 91594-POPZUJP NAIL, 6 OR MORE 11/25/2022 20233-OPXBUDS NAIL, 6 OR MORE 02/24/2023 22145-CDRJAOQ NAIL, 6 OR MORE 05/26/2023 76617-BZFDNCM NAIL, 6 OR MORE 11/21/2023 16703-AKTVTCE NAIL, 6 OR MORE 02/20/2024 28992-SKDDTXT NAIL, 6 OR MORE 06/04/2024 11165-Xpyfgmgx Plate 05/21/2019 28468-ROTW SKIN LESIONS, OVER 4 05/21/20 86179-OXKR SKIN LESIONS, OVER 4 02/16/20 19 74252-ONKN SKIN LESIONS, OVER 4 03/17/20 85127-CWAV SKIN LESIONS, OVER 4 11/26/19 65317-INVR SKIN LESIONS, OVER 4 04/09/20 03235-PVKC SKIN LESIONS, OVER 4 12/23/19 63562-VMHB SKIN LESIONS, OVER 4 09/22/19 19676-FJEV SKIN LESIONS, OVER 4 06/16/20 50641-IJSF SKIN LESIONS, OVER 4 02/20/20 24 00904-JNNV SKIN LESIONS, OVER 4 11/21/19 24 69920-FFTO SKIN LESIONS, OVER 4 05/26/20 23 44416-HHOJ SKIN LESIONS, OVER 4 02/25/20 23 50872-YVUK SKIN LESIONS, OVER 4 11/26/19 23 09091-JBNO SKIN LESIONS, OVER 4 05/06/20 92836-AWTN SKIN LESIONS, OVER 4 02/19/20 60533-XTEG SKIN LESIONS, OVER 4 11/20/19 39468-QSIJ SKIN LESIONS, OVER 4 11/28/19 19 41527-UPQR SKIN LESIONS, OVER 4 06/12/20 18 71321-FFFZ SKIN LESIONS, OVER 4 03/09/20 18 42699-SPDJ SKIN LESIONS, OVER 4 11/11/19 18 09909-ENRL SKIN LESIONS, OVER 4 05/12/20 17 16802-YNKE SKIN LESIONS, OVER 4 11/23/19 17 43480-UKUX SKIN LESIONS, OVER 4 02/22/20 17 40013-IXEA SKIN LESIONS, OVER 4 05/24/20 16 69381-QKEV SKIN LESIONS, OVER 4 02/23/20 16 36861-XHHN SKIN LESIONS, OVER 4 11/12/19 15 18957-VDGK SKIN LESIONS, OVER 4 07/04/20 14 30001-EWCS SKIN LESIONS, OVER 4 04/08/20 14 20297-JEVG SKIN LESIONS, OVER 4 11/24/19 16 46707-MGJV SKIN LESIONS, OVER 4 08/07/19 16 80112-SFCJ SKIN LESIONS, OVER 4 02/11/20 15 08099-XLZG SKIN LESIONS, OVER 4 05/19/20 15 23931-NKAQ SKIN LESIONS, OVER 4 06/04/20 24 68847-WRAZ SKIN LESIONS, 2 TO 4 01/28/20 14 Next Appt Details Provider Name:Rom Stevie Pollock , 01/03/2025 12:30:00 PM, [address] [place], [address], Insurance Providers Payer Name Payer Address Payer Phone Subscriber Number Group Number Insured Name Patient Relationship to Insured Coverage Start Date Coverage End Date [employer] [address] [place] [address] [id number] Chris Avalos Self - patient is the [...] Replacement left 04/2022 Hospitalization History Reason Date(Month/Year) [facility] /BP 200 CT scans taken overnight cause too much sun 09/2021 Hip replacement surgery 05/2015
--- OUTSIDE RECORDS SUMMARY | 2024-11-08 11:13 | XMS_ITS ---
Author Organization [facility] Address [address] [place] [address] Care Team Providers Care Supervisor Area Name Role Phone Bashir Severino MD Primary Care Provider UnavailJayme Osorio Jr Unavailable Allergies No Known Allergies REASON FOR VISIT Patient presents today for hearn's Medications Medication SIG (Take, Route, Frequency, Duration) [...] affected area Externally Twice a day/prn Active Problems Problem Type SNOMED Code ICD Code Onset Dates Problem Status W/U Status Risk Notes Problem Gastro-esophag eal reflux disease with esophagitis, with bleeding (K21.01) Active confirmed Vital Signs Temperature 98.6 degrees Fahrenheit 06/24/20 24 Blood pressure systolic 000 mm Hg 06/24/20 24 Blood pressure diastolic 00 mm Hg 024 Height 67 in 06/24/2024 Weight 230 lbs 06/24/2024 BMI 36.02 kg/m2 06/24/2024 Encounters Encounter Location Date Provider Diagnosis [facility] [address] [place] [address] 06/24/2024 Jayme Soni Jr Hearn's esophagus without dysplasia K22.70 and Gastro-esophageal reflux disease with esophagitis K21.0 Assessments Encounter Date Diagnosis (ICD Code) Assessment Notes Treatment Notes Treatment Clinical Notes Section Notes 06/24/2024 Hearn's esophagus without dysplasia (ICD-10 - K22.70) Hearn esophagus material was printed We discussed gastroesophageal reflux disease today. We discussed diet, lifestyle modifications, and weight management regarding the treatment of reflux. We discussed Hearn's esophagus. Further surveillance for this is optional based on his age. He will continue omeprazole, in followup with us in one year, sooner if necessary. 06/24/2024 Gastro-esophage al reflux disease with esophagitis (ICD-10 - K21.0) We discussed gastroesophageal reflux disease today. We discussed diet, lifestyle modifications, and weight management regarding the treatment of reflux. We discussed Hearn's esophagus. Further surveillance for this is optional based on his age. He will continue omeprazole, in followup with us in one year, sooner if necessary. Plan Of Treatment Treatment Notes Assessment Notes Hearn's esophagus without dysplasia Ba rrett esophagus material was printed Next Appt Details Follow Up: 1 Year, Reason: Provider Name:Jayme barakat Jr, 06/23/2025 09:00:00 AM, [address], [address], [place], [address], Progress Notes * AMMON HERMOSILLOHDOB:1940 (84 yo M)Acc No.[id number]:06/24/2024 Progress Notes Patient:?TERRI HERMOSILLO Provider:?Jayme Soni MD :1940???Age:84 Y???Sex:Male Filiberto e:06/24/2024 Address: [place], [place] Pcp:Bashir Severino MD Subjective: * Chief Complaints: * ???1. Patient presents today for hearn's. * HPI: ???New symptom(s):? The patient is a pleasant 84-year-old man seen today in followup of Hearn's esophagus. Since we saw him last, he reports reflux symptoms are under good control. He has no complaints of hematemesis or melena. He does have occasional dysphagia. This has not been progressive. This is particularly noticeable with pills. We discussed this today. He continues on omeprazole 40 mg daily for his reflux. * Medical History:?Hypertensio n, Coronary artery disease and stent placement, Esophageal reflux, Fibromyalgia, Osteoarthritis, Leukopenia, Degenerative joint disease with hip replacement, BPH, Elevated triglycerides, Common bile duct stones, Paroxysmal atrial fibrillation, Hearn's esophagus, upper endoscopy 11/25/15, 2 cm Hearn's, biopsies without dysplasia., Colonoscopy 2011, diverticulosis, Neuropathy. * Surgical History:?Hip replac ement right and left , stent placement x3 , ERCP , laparoscopic cholecystectomy , right knee . * Family History:?Father: dece ased, lung cancer/arthritis.?Mother: , respitory/fibrosis/hyperthyroid.?Siblings: 2 sisters with arthritis.? no known family hx of colon cancer or liver ds Sister had colon polyps. * Social History:?Tobacco Use:?Tobacco Use/Smoking?Are you a: nonsmoker.?Drugs/Alcohol:?Alcohol Screen?Points: 1, Interpretation: Negative.?Miscellaneous:?Marital status: . 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 ???occasional beer. * Medications:?Taking Co Q 10 100 MG Capsule as directed Orally , Taking Aspirin 81 81 MG Tablet Delayed Release 1 tablet Orally Once a day, Taking Jardiance 10 MG Tablet 1 tablet Orally Once a day, Taking Eliquis 5 MG Tablet as directed Orally , Taking tylenol 1 tab Oral , Notes: 1000 mg bid, Taking Betamethasone Combo PF , Taking Versatile Cream Base - Cream as directed Externally , Taking Sotalol HCl 80 MG Tablet 1 tablet Orally once a day, Taking Lyrica 100 MG Capsule 1 capsule Orally Once a day, Taking Claritin 10 MG Tablet 1 tablet Orally Once a day, Taking Multi Vitamin/Minerals - Tablet 1 Orally QD, Taking CoQ10 100 MG Capsule 1 capsule with a meal Orally Once a day, Taking Aspirin 81 MG Tablet Chewable 1 tablet Orally Once a day, Taking Omeprazole 40 MG Capsule Delayed Release 1 capsule Orally Once a day, Taking Amitriptyline HCl 25 MG Tablet 1 tablet Orally Once a day, Taking Glucosamine 500 MG Capsule 2 capsule with a meal Orally QAM, Taking Atorvastatin Calcium 40 MG Tablet 1 tablet Orally Once a day, Taking traMADol HCl 50 MG Tablet 1 tablet as needed Orally TID/prn, Taking metFORMIN HCl 500 MG Tablet 1 tablet with a meal Orally Once a day, Taking Apixaban 5 MG Tablet 1 Orally BID, Taking Eye Health Formula 1 1 1 PO QD, Taking Indomethacin 25 MG Capsule 1 capsule with food or milk Orally prn, Taking Ciclopirox Olamine 0.77 % Cream 1 application to affected area Externally Twice a day/prn, Taking Betamethasone 10 mg , Notes: knee pain, Taking Ranibizumab 0.1 mg , Taking Tylenol 500 mg BID, Taking Loratadine 10 MG Tablet Orally , Taking Eye Vitamins & Minerals , Taking Plavix 75 MG Tablet Orally , Taking amLODIPine Besylate 5 MG Tablet Oral , Medication List reviewed and reconciled with the patient * Allergies:?N.K.D.A. Objective: * Vitals:?Wt: 230 lbs, Ht: 67 in, BMI:36.02 Index, BP: 000/00 mm Hg, Temp: 98.6. * Examination: ???General Examination: ???On examination today, he appears well. Skin is anicteric. Lungs are clear. Heart shows regular rate and rhythm. Abdomen is soft without focal mass or tenderness. Extremities are without edema. Assessment: * Assessment: 1.?Hearn's esophagus witho ut dysplasia - K22.70 (Primary)?2.?Gastro-esophageal reflux disease with esophagitis - K21.0? We discussed gastroesophagea l reflux disease today. We discussed diet, lifestyle modifications, and weight management regarding the treatment of reflux. We discussed Hearn's esophagus. Further surveillance for this is optional based on his age. He will continue omeprazole, in followup with us in one year, sooner if necessary. Plan: * Treatment: * Procedure Codes:?G9903 Pt sc rn tbco id as non user, G9745 DOC RSN FOR NOT SCREEN/REC F/U HBP * Preventive Medicine:? ??Counseling:?Care goal follow-up plan:?Above Normal BMI Follow-up?Giving encouragement to exercise,?BMI management provided?Yes.? ??Screenings:?Fall Risk Screening?Fall Risk Assessment:?No falls in the past year,?Screening:?No falls in the past year,?Assessment:?Not performed, no reason specified,?Plan of Care:?Not documented, due to medical reason.? * Follow Up:?1 Year * * Sign off status: Completed true * Provider:?Jayme Soni MD Date:?1 08/24/2023 Generated for Lisi anna/Robbin/eTransmitting on:?11/08/2024 11:12 AM EDT History and Physical Notes * HPI (History of Present Illness) Category Sub-Category Detail Notes Category Not es New symptom(s) The patient i s a pleasant 84-year-old man seen today in followup of Hearn's esophagus. Since we saw him last, he reports reflux symptoms are under good control. He has no complaints of hematemesis or melena. He does have occasional dysphagia. This has not been progressive. This is particularly noticeable with pills. We discussed this today. He continues on omeprazole 40 mg daily for his reflux. Examination Category Sub-Category Detail Notes Category Not es General Examination On exami [facility] today, he appears well. Skin is anicteric. Lungs are clear. Heart shows regular rate and rhythm. Abdomen is soft without focal mass or tenderness. Extremities are without edema.
--- OUTSIDE RECORDS SUMMARY | 2024-11-08 11:13 | XMS_ITS | Patient Health Record ---
Author Organization [facility] Address [address] [place] [address] Care Team Providers Care Occupational Health Technician Name Role Phone Bashir Severino MD Primary Care Provider Unavailab Jayme Guzman Jr Unavailable Allergies No Known Allergies Reason For Referral No Information Medications Medication [...] CoQ10 100 MG 1 capsule with a cahka l Orally Once a day Active Multi [...] Active Loratadine 10 MG Orally Act sheila Immunizations Vaccine Route Administration Date Status Comme nts Influenza Unknown 04/03/2018 Administered Influenza Unknown 03/31/2019 Administered Influenza Unknown 05/13/2020 Administered Influenza Unknown 06/22/2021 Administered Influenza Unknown 05/10/2022 Administered Influenza Unknown 06/04/2024 Administered Problems Problem Type SNOMED Code ICD Code Onset Dates Problem Status W/U Status Risk Notes Problem 062295396 Colon cancer screening (Z12.11) Active confirmed Problem 918234966 Gastro-esophagea l reflux disease with esophagitis (K21.0) Active confirmed Problem 241964948 Osorio's esophagus without dysplasia (K22.70) Active confirmed Problem 98407868 Rectal urgency (R15.2) Active confirmed Problem 647533842 Throat pain (R07.0) Active confirmed Problem 06558720 Diarrhea, unspecified type (R19.7) Active confirmed Problem Gastro-esophagea l reflux disease with esophagitis, with bleeding (K21.01) Active confirmed Problem Gastroesophageal reflux disease with esophagitis (disorder) (133905963) Gastroesophageal reflux disease with esophagitis, unspecified whether hemorrhage (K21.00) Active confirmed Vital Signs Temperature 98.6 degrees Fahrenheit 06/24/2024 Blood pressure diastolic 00 mm Hg 06/24/2024 Height 67 in 06/24/2024 Blood pressure systolic 000 mm Hg 06/24/2024 Weight 230 lbs 06/24/2024 BMI 36.02 kg/m2 06/24/2024 Encounters Encounter Location Date Provider Diagnosis [facility] [address] [place] [address] 06/24/2024 Jayme Soni Jr Osorio's esophagus without dysplasia K22.70 and Gastro-esophageal reflux disease with esophagitis K21.0 Assessments Encounter Date Diagnosis (ICD Code) Assessment Notes Treatment Notes Treatment Clinical Notes Section Notes 06/24/2024 Gastro-esophage al reflux disease with esophagitis (ICD-10 - K21.0) We discussed gastroesophageal reflux disease today. We discussed diet, lifestyle modifications, and weight management regarding the treatment of reflux. We discussed Osorio's esophagus. Further surveillance for this is optional based on his age. He will continue omeprazole, in followup with us in one year, sooner if necessary. 06/24/2024 Osorio's esophagus without dysplasia (ICD-10 - K22.70) Osorio esophagus material was printed We discussed gastroesophageal reflux disease today. We discussed diet, lifestyle modifications, and weight management regarding the treatment of reflux. We discussed Osorio's esophagus. Further surveillance for this is optional based on his age. He will continue omeprazole, in followup with us in one year, sooner if necessary. Plan Of Treatment Future Test Test Name Order Date UPPER GI ENDOSCOPY 11/14/2012 COLONOSCOPY 01/27/2016 Next Appt Details Provider Name:Jayme barakat , 06/23/2025 09:00:00 AM, [address] [place] [address], [address], [place], [address], Insurance Providers Payer Name Payer Address Payer Phone Subscriber Number Group Number Insured Name Patient Relationship to Insured Coverage Start Date Coverage End Date [facility] [place] [phone] [id number] TERRI HERMOSILLO Self - patient is the insured Medical (General) History Medical History History ICD Code Hypertension coronary [...]
--- OUTSIDE RECORDS SUMMARY | 2024-11-08 11:13 | XMS_ITS ---
Author Organization [facility] Address [address] [place] [address] Care Team Providers Care Ship'S Surveyor Name Role Phone Bashir Severino MD Primary Care Provider Unavailab dawit Soni Jr, Jayme Cantu REASON FOR VISIT ov recall Encounters Encounter Location Date Provider Diagnosis [facility] [address] [place] [address] 05/17/2023 Jayme Soni Jr Plan Of Treatment Next Appt Details Provider Name:Jayme barakat Jr, 06/23/2025 09:00:00 AM, [address], [address], [place], [address], Progress Notes * BAYVIVEKSARIAHHDOB:1940 (83 yo M)Acc No.[id number]:05/17/2023 Patient:?TERRI HERMOSILLO :1940???Age:83 Y???Sex:Male Address:[address] [place] [address] * true * Date:? Generated for Lisi anna/Robbin/eTransmitting on:?11/08/2024 11:13 AM EDT
--- OUTSIDE RECORDS SUMMARY | 2024-11-08 11:13 | XMS_ITS ---
Author [facility] [place] Address [address] [place] [address] Care Team Providers Care Windows Vmware Engineer Name Role Phone Maycol CORTEZ, Bashir Primary Care Provider Unavailab Rom Rose Unavailable [phone] REASON FOR VISIT At Risk Footcare Medications Medication SIG (Take, Route, Frequency, Duration) Notes Start Date End Date Status Extra Depth Orthopedic Shoes (1 Pair) with Customized Heat Molded Multidensity Innersoles (3 Pair) as directed Dx: NIDDM/Polyneuropath y (E11.42), Hammertoe Foot Deformity (M20.41,M20.42), Preulcerative Skin Lesion(s) (L85.1 11/21/2023 Active Nystop 720918 UNIT/GM External Not-Taking hydroCHLOROthiazide 25 MG 1 [...] Ordered Date Performed Result Body Sit e 10950-QYRPJUP NAIL, 6 OR MORE 02/20/2024 N/A 29977-HHOY SKIN LESIONS, OVER 4 02/20/2024 N/A Encounters Encounter Location Date Provider Diagnosis [facility] [address] [address] 02/20/2024 Rom Pollock Type 2 diabetes mellitus with diabetic polyneuropathy E11.42 and Tinea unguium B35.1 Assessments Encounter Date Diagnosis (ICD Code) Assessment Notes Treatment Notes Treatment Clinical Notes Section Notes 02/20/2024 Type 2 diabetes mellitus with diabetic polyneuropathy (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.42) 02/20/2024 Tinea unguium (ICD-10 - B35.1) Plan Of Treatment Pending Test Test Name Order Date 44435-EELVVPF NAIL, 6 OR MORE 02/20/2024 47529-YTMV SKIN LESIONS, OVER 4 02/20/20 24 Next Appt Details Follow Up: prn, Reason: Provider Name:Rom Pollock , 01/03/2025 12:30:00 PM, [address] [place] [address], [phone], Procedure Notes * Category Sub-Category Detail Notes [...] as necessary. Patient chooses, no pharmaceutical tx (26203) Keratoma Treatment Parring or Cutting o f Benign Hyperkeratotic Lesion(s) 64328 ( >4 Lesions) - The Benign hyperkeratotic lesions, as described above were pared, and/or cut utilizing a sterile #15 blade, tissue nippers, and/or dremel Progress Notes * Chris HERMOSILLO HDOB: 1 (84 yo M)Acc No.[id number]:02/20/2024 Progress Note Patient:?Chris Hermosillo Provider:?Rom Pollock DPM :1940???Age:84 Y???Sex:Male Filiberto e:02/20/2024 Address:[address] [place], [place] [address] Pcp:Bashir Severino MD Subjective: * Chief Complaints: [...] Diagno stic Procedure:?Hip replacement surgery 05/2015[facility] /BP 200 CT scans [...] housework, Barn, gym. ?Marital status: . ?Occupation: [employer] * Medications:?TakingamLODIPin e Besylate 2.5 MG Tablet [...] Foot Deformity (M20.41,M20.42), Preulcerative Skin Lesion(s) (L85.1Not-Taking/PRNNystop 089412 UNIT/GM Powder External hydroCHLOROthiazide 25 MG Tablet 1 tablet Oral traMADol HCl , Notes: prnLyrica 50 MG Capsule Orally once in morningMedication List reviewed and reconciled with the patientNot-Taking/PRN Nystop 999885 UNIT/GM Powder External Not-Taking/PRN hydroCHLOROthiazide 25 MG [...] as necessary. Patient chooses, no pharmaceutical tx (34237).?Keratoma Treatment:?Parring or Cutting of Benign Hyperkeratotic Lesion(s)?49372 ( >4 Lesions) - The Benign hyperkeratotic lesions, as described above were pared, and/or cut utilizing a sterile #15 blade, tissue nippers, and/or dremel.? * Procedure Codes:?44118 DEBRI DE NAIL, 6 OR MORE, Modifiers: XS 08631 TRIM SKIN LESIONS, OVER 4, Modifiers: XS * Follow Up:?prn * Images: * Sign off status: Completed Addendum: * ? true * Provider:?Rom Pollock DPM Date:?2023 Generated for Santiago castillo/Robbin/Antelmo on:?11/08/2024 11:12 AM EDT History and Physical [...]
--- OUTSIDE RECORDS SUMMARY | 2024-11-08 11:13 | XMS_ITS ---
Author Organization [facility] Address [address] [place] [address] Care Team Providers Care Landscape Photographer Name Role Phone Bashir Severino MD Primary Care Provider Unavailab Jayme Guzman Jr Unavailable Allergies No Known Allergies REASON FOR VISIT Patient presents today for reflux,barretts esophagus Medications Medication SIG (Take, Route, Frequency, Duration) [...] for 14 days 1000 mg bid Active Problems Problem Type SNOMED Code ICD Code Onset Dates Problem Status W/U Status Risk Notes Problem Gastroesophageal reflux disease with esophagitis (disorder) (924183141) Gastroesophageal reflux disease with esophagitis, unspecified whether hemorrhage (K21.00) Active confirmed Vital Signs Temperature 98.2 degrees Fahrenheit 05/17/20 23 Blood pressure systolic 000 mm Hg 05/17/20 23 Blood pressure diastolic 00 mm Hg 023 Height 67 in 05/17/2023 Weight 218 lbs 05/17/2023 BMI 34.14 kg/m2 05/17/2023 Encounters Encounter Location Date Provider Diagnosis [facility] [address] [place] [address] 05/17/2023 Jayme Soni Jr Osorio's esophagus without dysplasia K22.70 and Gastro-esophageal reflux disease with esophagitis K21.0 Assessments Encounter Date Diagnosis (ICD Code) Assessment Notes Treatment Notes Treatment Clinical Notes Section Notes 05/17/2023 Osorio's esophagus without dysplasia (ICD-10 - K22.70) Osorio esophagus material was printed Currently, he is doing well. We discussed gastroesophageal reflux disease today. We discussed diet, lifestyle modifications, and weight management regarding the treatment of reflux. He will continue omeprazole. Followup will be in 12 months. For his bowels he is advised to follow a high-fiber diet. 05/17/2023 Gastro-esophage al reflux disease with esophagitis (ICD-10 - K21.0) Currently, he is doing well. We discussed gastroesophageal reflux disease today. We discussed diet, lifestyle modifications, and weight management regarding the treatment of reflux. He will continue omeprazole. Followup will be in 12 months. For his bowels he is advised to follow a high-fiber diet. Plan Of Treatment Treatment Notes Assessment Notes Osorio's esophagus without dysplasia Ba rrett esophagus material was printed Next Appt Details Follow Up: 1 Year, Reason: Provider Name:Jayme barakat Jr, 06/23/2025 09:00:00 AM, [address], [address], [place], [address], Progress Notes * AMMON HERMOSILLOHDOB:1940 (83 yo M)Acc No.[id number]:05/17/2023 Progress Notes Patient:TERRI LUCIO Provider:?Jayme Soni MD :1940???Age:83 Y???Sex:Male Filiberto e:05/17/2023 Address: [address] [facility] Pcp:Bashir Severino MD Subjective: * Chief Complaints: * ???1. Patient presents today for reflux,barretts esophagus. * HPI: ???New symptom(s):? Is a pleasant 83-year-old man seen today in followup of Osorio's esophagus and gastroesophageal reflux disease. Since we saw him last, he's been doing well. He reports reflux symptoms are under good control on omeprazole 40 mg daily. He has no dysphagia, hematemesis, or melena. Weight and appetite have been stable. ?Bowel movements are generally formed and occurring about every other day. He does try to follow a high-fiber diet. He is active and goes to the gym 5 out of 7 days per week with upper and lower group muscle workouts. * Medical History:?Hypertensio n, Coronary artery disease and stent placement, Esophageal reflux, Fibromyalgia, Osteoarthritis, Leukopenia, Degenerative joint disease with hip replacement, BPH, Elevated triglycerides, Common bile duct stones, Paroxysmal atrial fibrillation, Osroio's esophagus, upper endoscopy 11/25/15, 2 cm Osorio's, biopsies without dysplasia., Colonoscopy 2011, diverticulosis, Neuropathy. * Surgical History:?Hip replac ement right and left , stent placement x3 , ERCP , laparoscopic cholecystectomy , right knee . * Hospitalization/Major Diagno stic Procedure:?Denies Past Hospitalization. * Family History:?Father: dece ased, lung cancer/arthritis.?Mother: , respitory/fibrosis/hyperthyroid.?Siblings: 2 sisters with arthritis.? no known family hx of colon cancer or liver ds Sister had colon polyps. * Social History:?Tobacco Use:?Tobacco Use/Smoking?Are you a: nonsmoker.?Drugs/Alcohol:?Alcohol Screen?Points: 1, Interpretation: Negative.?Miscellaneous:?Marital status: . 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 ???occasional beer. * Medications:?Taking tylenol 1 tab Oral , Notes: 1000 [...] amLODIPine Besylate 5 MG Tablet Oral , Discontinued Tylenol Allergy Complete , Discontinued Baclofen 0.05 MG/ML Solution as directed Intrathecal , Medication List reviewed and reconciled with the patient * Allergies:?N.K.D.A. Objective: * Vitals:?Wt: 218 lbs, Ht: 67 in, BMI:34.14 Index, BP: 000/00 mm Hg, Temp: 98.2. * Examination: ???General Examination: ???On examination today, he appears well. Skin is anicteric. Lungs are clear. Heart shows regular rate and rhythm. Abdomen is soft without focal mass or tenderness. Extremities are without edema. Assessment: * Assessment: 1.?Osorio's esophagus witho ut dysplasia - K22.70 (Primary)?2.?Gastro-esophageal reflux disease with esophagitis - K21.0? Currently, he is doing well. We discussed gastroesophageal reflux disease today. We discussed diet, lifestyle modifications, and weight management regarding the treatment of reflux. He will continue omeprazole. Followup will be in 12 months. For his bowels he is advised to follow a high-fiber diet. Plan: * Treatment: * Procedure Codes:?G9903 Pt sc rn tbco id as non user, G9744 PATIENT NOT ELIG D/T ACTIVE DX HTN * Preventive Medicine:? ??Counseling:?Care goal follow-up plan:?Above Normal BMI Follow-up?Giving encouragement to exercise,?BMI management provided?Yes.? * Follow Up:?1 Year * * Sign off status: Completed true * Provider:?Jayme Soni MD Date:?1 Generated for Santiago castillo/Robbin/eTransmitting on:?11/08/2024 11:13 AM EDT History and Physical Notes * HPI (History of Present Illness) Category Sub-Category Detail Notes Category Not es New symptom(s) Is a pleasant 83-year-old man seen today in followup of Osorio's esophagus and gastroesophageal reflux disease. Since we saw him last, he's been doing well. He reports reflux symptoms are under good control on omeprazole 40 mg daily. He has no dysphagia, hematemesis, or melena. Weight and appetite have been stable. Bowel movements are generally formed and occurring about every other day. He does try to follow a high-fiber diet. He is active and goes to the gym 5 out of 7 days per week with upper and lower group muscle workouts. Examination Category Sub-Category Detail Notes Category Not es General Examination On exami nation today, he appears well. Skin is anicteric. Lungs are clear. Heart shows regular rate and rhythm. Abdomen is soft without focal mass or tenderness. Extremities are without edema.
--- OUTSIDE RECORDS SUMMARY | 2024-11-08 11:14 | XMS_ITS ---
Author Organization [facility] Address [address] [place] [address] Care Team Providers Care Faculty Instructor Name Role Phone Bashir Severino MD Primary Care Provider Unavailab Rom Rose Unavailable [phone] REASON FOR VISIT r/s 11/19 Encounters Encounter Location Date Provider Diagnosis [address] [address] 10/11/2024 Rom Pollock Plan Of Treatment Next Appt Details Provider Name:Rom Pollock , 01/03/2025 12:30:00 PM, [address] [place] [address], [address], Progress Notes * Chris AVALOS HDOB: (84 yo M)Acc No.[id number]:10/11/2024 Patient:?Chris AVALOS :1940???Age:84 Y???Sex:Male Address:[address] [place] [address], [address] * true * Date:? Generated for Printi ng/Fairasemag/eTransmitting on:?11/08/2024 11:13 AM EDT
--- OUTSIDE RECORDS SUMMARY | 2024-11-08 11:14 | XMS_ITS ---
Author Organization [facility] [place] Address [address] [place] [address] Care Team Providers Care Horseback Riding Instructor Name Role Phone Maycol CORTEZ, Bashir Primary Care Provider Unavailab Rom Rose Unavailable [phone] Allergies No Known Allergies REASON FOR VISIT [...] 25 MG 1 tablet Oral Not-Taking Nystop 388092 UNIT/GM External Not-Taking Multivitamins Orally 01/27/2014 Activ [...] Ordered Date Performed Result Body Sit e 73994-GUHAIOD NAIL, 6 OR MORE 06/04/2024 N/A 78343-IQXY SKIN LESIONS, OVER 4 06/04/2024 N/A Encounters Encounter Location Date Provider Diagnosis [facility] [address] [address] 06/04/2024 Rom Pollock Type 2 diabetes mellitus with diabetic polyneuropathy E11.42 and Tinea unguium B35.1 Assessments Encounter Date Diagnosis (ICD Code) Assessment Notes Treatment Notes Treatment Clinical Notes Section Notes 06/04/2024 Type 2 diabetes mellitus with diabetic polyneuropathy (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.42) 06/04/2024 Tinea unguium (ICD-10 - B35.1) Plan Of Treatment Pending Test Test Name Order Date 21814-NXKQWOE NAIL, 6 OR MORE 06/04/2024 25686-ONNQ SKIN LESIONS, OVER 4 06/04/20 24 Next Appt Details Follow Up: prn, Reason: Provider Name:Rom Pollock , 01/03/2025 12:30:00 PM, [address] [place] [address], [phone], Procedure Notes * Category Sub-Category Detail Notes Debride Nail 6-10 Nail debridement Performance o f this nail treatment by a nonprofessional would put this patients foot and overall health at risk. Therefore, nail debridement was performed extensively to reduce/remove overall nail length, girth, thickness, subungual debris, and necrotic tissue, by manual and/or electrical means through the use of a nail nipper and/or dremel-type grinder operator tool, to a more viable healthy nail plate or bed tissue 6-10. Silver nitrate used for any petechial bleeding as necessary. Definitive antifungal treatment options have been reviewed and discussed with the patient. The patient chooses, no pharmaceutical tx - 17812 Keratoma Treatment Parring or Cutting o f Benign Hyperkeratotic Lesion(s) (-57) More than 4 Lesions - The Benign hyperkeratotic lesions, as described above were pared, and/or cut utilizing a sterile 15 blade, tissue nippers, and/or dremel - 91340 Progress Notes * Chris HERMOSILLO HDOB: 1 (84 yo M)Acc No.[id number]:06/04/2024 Progress Note Patient:?Chris Hermosillo Provider:?Rom Pollock DPM :1940???Age:84 Y???Sex:Male Filiberto e:06/04/2024 Address:[address] [place], [place] [address] Pcp:Bashir Severino MD Subjective: * Chief Complaints: [...] housework, Barn, gym. ?Marital status: . ?Occupation: [employer]. * Medications:?TakingamLODIPin e Besylate 2.5 MG Tablet [...] Foot Deformity (M20.41,M20.42), Preulcerative Skin Lesion(s) (L85.1Not-Taking/PRNNystop 818598 UNIT/GM Powder External hydroCHLOROthiazide 25 MG Tablet 1 tablet Oral traMADol HCl , Notes: prnLyrica 50 MG Capsule Orally once in morningMedication List reviewed and reconciled with the patientNot-Taking/PRN Nystop 579523 UNIT/GM Powder External Not-Taking/PRN hydroCHLOROthiazide 25 MG [...] use of a nail nipper and/or dremel-type grinder operator tool, to a more viable healthy nail plate or bed tissue 6-10. Silver nitrate used for any petechial bleeding as necessary. Definitive antifungal treatment options have been reviewed and discussed with the patient. The patient chooses, no pharmaceutical tx - 34244.?Keratoma Treatment:?Parring or Cutting of Benign Hyperkeratotic Lesion(s)?(-57) More than 4 Lesions - The Benign hyperkeratotic lesions, as described above were pared, and/or cut utilizing a sterile 15 blade, tissue nippers, and/or dremel - 73308.? * Procedure Codes:?48919 DEBRI DE NAIL, 6 OR MORE, Modifiers: XS 59421 TRIM SKIN LESIONS, OVER 4, Modifiers: XS * Follow Up:?prn * Images: * Sign off status: Completed true * Provider:?Rom Pollock DPM Date:?2023 Generated for Santiago castillo/Robbin/Antelmo on:?11/08/2024 11:13 AM EDT History and Physical [...]
== END 2024-11-08 11:11 | disposition home or self-care (01) ==
LOC: HO.HKA 10:24
PROVIDERS: PCP Family Medicine; Visit Provider Internal Medicine Nephrology
DX: I73.9 Peripheral vascular disease, unspecified (principal); E11.22 Type 2 diabetes mellitus with diabetic chronic kidney disease; N18.32 Chronic kidney disease, stage 3b; I10 Essential (primary) hypertension
CPT/HCPCS: 99214

== ENCOUNTER → 2024-11-08 10:23 | Outpatient (BNVA) | payer MEDICARE, SELFPAY | PROVIDERS: PCP Family Medicine; Visit Provider Internal Medicine Nephrology | DX: E11.22 Type 2 diabetes mellitus with diabetic chronic kidney disease (principal); I12.9 Hypertensive chronic kidney disease with stage 1 through stage 4 chronic kidney disease, or unspecified chronic kidney disease; N18.32 Chronic kidney disease, stage 3b; I73.9 Peripheral vascular disease, unspecified | CPT/HCPCS: 99212 ==

== ENCOUNTER 2024-11-14 11:19 | Outpatient (AMB) | payer MEDICARE, SELFPAY ==
[2024-11-14 11:30] VITALS: BMI 35.3
--- NOTE | 2024-11-14 11:30 | MHC.OFFVIS ---
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 Pt states he feels like he has pillows on the bottom of his feet. Has bilateral discoloration. 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 He reports long-standing issues with his legs, particularly noting problems with his feet. The right leg is reportedly more symptomatic than the left. The patient describes an ache in his legs and numbness in his fingers, attributing these symptoms to neuropathy due to his long-standing diabetes, diagnosed approximately 10 to 15 years ago. He notes using a cane primarily for balance and not due to severe pain, though he can only walk a short distance, such as a block, before requiring a rest. He describes an ?ache? that begins in his hips, making extended walking uncomfortable. 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 Mother No problems noted. Social History Alcohol intake: current Alcohol intake frequency: holidays/special occasions only Patient Tobacco Use Status: Former Tobacco user Years Smoked: 5 +/- Review of Systems Const All systems reviewed & are unremarkable except as noted in HPI and below Reports no additional complaints ENT Reports Normal hearing present Card Denies chest pain, Denies chest pain at rest, Denies chest pain with activity and Denies pedal edema Resp Denies cough GI Denies abdominal pain Musc Denies abnormal gait, Denies muscle cramps and Denies radiating pain into limb Skin/Breast Denies skin ulcer and Denies wounds Neuro Reports Normal hearing present and Denies abnormal gait Psych Reports no additional complaints Physical Exam Vital Signs: BMI result Body Mass Index 35.3 Const General: cooperative, healthy appearing and comfortable Orientation/consciousness: oriented to person, oriented to place and oriented to time HEENT Head: Yes normal to inspection Neck Neck: Yes normal visual inspection Carotids: no bruits Chest Chest palpation & inspection: normal inspection of the chest Resp Effort & Inspection: normal respiratory effort and able to speak in complete sentences Auscultation: clear to auscultation bilaterally, no crackles, no rales, no rhonchi and no wheezes Cardio Other: Faintly palpable dorsalis pedis pulses bilaterally Rate: regular rate Rhythm: regular rhythm Heart sounds: S1 normal heart sound present and S2 normal heart sound present Bruits: no carotid bruits Peripheral pulses: Peripheral pulses 2+ throughout GI Inspection: Yes normal to inspection Skin Wounds: no wounds Hair: normal Neuro General: oriented to person, oriented to place and oriented to time Cranial nerves: Yes CN's II-XII intact bilaterally and Yes Normal hearing present Cognition (Neuro): normal cognition Motor exam (neuro): 5/5 motor strength present throughout Extrem Other: venous exam: No significant superficial varicosities or spider telangiectasias, minimal edema General: No clubbing, No cyanosis and No edema Psych Appearance: grossly normal Mental Status: mental status grossly normal Speech and movement: Normal speech and movement present Assessment & Plan Assessment & Plan (1) PAD (peripheral artery disease): Code(s): I73.9 - Peripheral vascular disease, unspecified Category: Medical Plan: I discussed the patient's potential peripheral vascular disease and plan to confirm blood flow to the lower extremities through an ultrasound exam. We explored the symptoms associated with his diabetic neuropathy, noting the persistent numbness and the impact on his balance and ambulation. The patient understands the rationale for the ultrasound, emphasizing the necessity of evaluating vascular status to prevent further complications. I clarified that if the vascular flow appears adequate, a referral to a neurologist may be warranted to better address neuropathy symptoms. The patient was informed about the follow-up arrangements once the ultrasound is completed and insurance authorization is secured. Plan Patient was informed and verbally consented to the use of an ambient scribe for clinic note documentation during this visit. Orders: Orders US arterial duplex LE BI 1 Week I73.9 - Peripheral vascular disease, unspecified Patient Instructions: - Await a call from the hospital to schedule the leg ultrasound. - Maintain current diabetes management. - Monitor leg symptoms and report any unexplained changes. - Use assistive walking devices as needed for balance. - Follow-up visit will be scheduled post-ultrasound to review results. Coding Level of Care Code Est Pt Level 4 (31856) Diagnoses PAD (peripheral artery disease) I73.9
--- OUTSIDE RECORDS SUMMARY | 2024-11-14 14:02 | XMS_ITS | Patient Health Record ---
[facility] Organization [facility] Address [address] [place] [address] Care Team Providers Care Pipe Layer Helper Name Role Phone Bashir Severino MD Primary Care Provider Unavailab Rom Rose Unavailable [phone] Allergies No Known Allergies Results Component Value [...] 1 tablet Oral Not-Taking Eliquis Active Nystop 729372 UNIT/GM External Not-Taking amLODIPine Besylate 2.5 MG [...] Problem Acquired hammer toe of right foot (7472169281515150 ) Other hammer toe(s) (acquired), right foot (M20.41) Active confirmed Problem Acquired hammer toe of left foot (3722009217753432 ) Other hammer toe(s) (acquired), left foot (M20.42) Active confirmed Problem Polyneuropathy due to type 2 diabetes mellitus (236065212) Type 2 diabetes mellitus with diabetic polyneuropathy (E11.42) Active confirmed Vital Signs Blood pressure diastolic 72 mm Hg 06/04/2024 Height 5 ft 8 in in 06/04/2024 Blood pressure systolic 134 mm Hg 06/04/2024 Weight 225 lbs 06/04/2024 BMI 34.21 kg/m2 06/04/2024 Procedures Procedure Date Ordered Date Performed Result Body Sit e 18703-GCLO SKIN LESIONS, OVER 4 06/04/2024 N/A 30654-XDJOXDV NAIL, 6 OR MORE 06/04/2024 N/A 63728-BZBU SKIN LESIONS, OVER 4 02/20/2024 N/A 21440-WHTHLMI NAIL, 6 OR MORE 02/20/2024 N/A 00807-CAFK SKIN LESIONS, OVER 4 11/21/2023 N/A 79640-HSIFINZ NAIL, 6 OR MORE 11/21/2023 N/A Encounters Encounter Location Date Provider Diagnosis [address] [address] 11/21/2023 Rom Pollock Type 2 diabetes mellitus with diabetic polyneuropathy E11.42 ; Onychomycosis B35.1 ; Other hammer toe(s) (acquired), right foot M20.41 and Other hammer toe(s) (acquired), left foot M20.[address] [address] 02/20/2024 Rom Pollock Type 2 diabetes mellitus with diabetic polyneuropathy E11.42 and Tinea unguium B35.[address] [address] 06/04/2024 Rom Pollock Type 2 diabetes mellitus with diabetic polyneuropathy E11.42 and Tinea unguium B35.[address] [address] 10/11/2024 Romsheryl Morrowier Assessments Encounter Date Diagnosis [...] Date Hemoglobin A1c 02/10/2015 Hemoglobin A1c 05/19/2015 73687-BJXPUDU NAIL, 6 OR MORE 02/10/2015 02703-UPJHAOM NAIL, 6 OR MORE 05/19/2015 30830-TBFQJYX NAIL, 6 OR MORE 08/07/2015 87409-UZCOHHG NAIL, 6 OR MORE 11/24/2015 07666-TKIDGMZ NAIL, 6 OR MORE 01/27/2014 35150-JFHOJBI NAIL, 6 OR MORE 04/08/2014 07935-MEBNJSM NAIL, 6 OR MORE 07/04/2014 67325-JIZCGZP NAIL, 6 OR MORE 11/11/2014 61830-NFNRUKS NAIL, 6 OR MORE 02/23/2016 89246-BHXTOXE NAIL, 6 OR MORE 05/24/2016 68112-QOWIWDK NAIL, 6 OR MORE 11/22/2016 73096-ECCUIAV NAIL, 6 OR MORE 02/21/2017 87491-WDRKKAZ NAIL, 6 OR MORE 05/12/2017 26544-EWNRXOI NAIL, 6 OR MORE 11/10/2017 39141-DWXDFVJ NAIL, 6 OR MORE 03/09/2018 63958-IIUZAUD NAIL, 6 OR MORE 06/12/2018 66958-XCZSYBA NAIL, 6 OR MORE 11/27/2018 18608-YLKKPYG NAIL, 6 OR MORE 02/15/2019 46749-HVESFNU NAIL, 6 OR MORE 05/21/2019 70308-OEGRZVU NAIL, 6 OR MORE 11/26/2019 01074-NQPWSCT NAIL, 6 OR MORE 03/17/2020 74781-UTEAFEY NAIL, 6 OR MORE 06/16/2020 48462-SXAFASH NAIL, 6 OR MORE 09/22/2020 77447-WRODYVC NAIL, 6 OR MORE 12/22/2020 27375-MTYBDAI NAIL, 6 OR MORE 04/09/2021 21675-EFKPYHR NAIL, 6 OR MORE 11/19/2021 71476-KFPZIIW NAIL, 6 OR MORE 02/18/2022 60774-PHOSLJC NAIL, 6 OR MORE 05/06/2022 38691-AKLCNDW NAIL, 6 OR MORE 11/25/2022 55778-TSAYMSF NAIL, 6 OR MORE 02/24/2023 49807-VGCVONX NAIL, 6 OR MORE 05/26/2023 28529-POYTIFW NAIL, 6 OR MORE 11/21/2023 69967-HTFMZLH NAIL, 6 OR MORE 02/20/2024 50754-YJZYLLT NAIL, 6 OR MORE 06/04/2024 17538-Qjoyeiry Plate 05/21/2019 24108-PPDN SKIN LESIONS, OVER 4 05/21/20 29760-ZVOQ SKIN LESIONS, OVER 4 02/16/20 19 33061-NOYA SKIN LESIONS, OVER 4 03/17/20 82070-YUNB SKIN LESIONS, OVER 4 11/26/19 38378-YYTI SKIN LESIONS, OVER 4 04/09/20 15868-KPKO SKIN LESIONS, OVER 4 12/23/19 36912-MYYC SKIN LESIONS, OVER 4 09/22/19 62178-SQOX SKIN LESIONS, OVER 4 06/16/20 35360-STAN SKIN LESIONS, OVER 4 02/20/20 24 89055-XNJW SKIN LESIONS, OVER 4 11/21/19 24 99117-ENWI SKIN LESIONS, OVER 4 05/26/20 23 84908-MVPJ SKIN LESIONS, OVER 4 02/25/20 23 18219-GMHR SKIN LESIONS, OVER 4 11/26/19 23 21413-MXDZ SKIN LESIONS, OVER 4 05/06/20 72550-NGAX SKIN LESIONS, OVER 4 02/19/20 10442-QBRU SKIN LESIONS, OVER 4 11/20/19 97775-EVFZ SKIN LESIONS, OVER 4 11/28/19 19 89123-RZVS SKIN LESIONS, OVER 4 06/12/20 18 83320-QROS SKIN LESIONS, OVER 4 03/09/20 18 68318-TYVG SKIN LESIONS, OVER 4 11/11/19 18 64266-GGAO SKIN LESIONS, OVER 4 05/12/20 17 47736-IKET SKIN LESIONS, OVER 4 11/23/19 17 95174-CWLS SKIN LESIONS, OVER 4 02/22/20 17 02710-AMOC SKIN LESIONS, OVER 4 05/24/20 16 67609-QOPL SKIN LESIONS, OVER 4 02/23/20 16 26392-TGZY SKIN LESIONS, OVER 4 11/12/19 15 49088-WGVR SKIN LESIONS, OVER 4 07/04/20 14 43257-ZODQ SKIN LESIONS, OVER 4 04/08/20 14 33754-CWZK SKIN LESIONS, OVER 4 11/24/19 16 71629-ZMKA SKIN LESIONS, OVER 4 08/07/19 16 06959-XFKT SKIN LESIONS, OVER 4 02/11/20 15 65403-FQCF SKIN LESIONS, OVER 4 05/19/20 15 02200-UNEX SKIN LESIONS, OVER 4 06/04/20 24 71735-KSOQ SKIN LESIONS, 2 TO 4 01/28/20 14 Next Appt Details Provider Name:Rom Stevie Pollock , 01/03/2025 12:30:00 PM, [address] [place], [address], Insurance Providers Payer Name Payer Address Payer Phone Subscriber Number Group Number Insured Name Patient Relationship to Insured Coverage Start Date Coverage End Date [employer] [address] [facility] [place] [address] [phone] [id number] Chris Avalos Self - patient is the [...] Replacement left 04/2022 Hospitalization History Reason Date(Month/Year) [facility]- D jose /BP 200 CT scans taken overnight cause too much sun 09/2021 Hip replacement surgery 05/2015
--- OUTSIDE RECORDS SUMMARY | 2024-11-14 14:03 | XMS_ITS ---
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 [...] Name:Jayme barakat Jr, 06/23/2025 09:00:00 AM, [address], [address], [place], [address], Progress Notes * AMMON HERMOSILLOHDOB:1940 (84 yo M)Acc No.[id number]:06/24/2024 Progress Notes Patient:?TERRI HERMOSILLO Provider:?Jayme Soni MD :1940???Age:84 Y???Sex:Male Filiberto e:06/24/2024 Address: [place], [place] Pcp:Bashir Severino MD Subjective: * Chief Complaints: [...] MD Date:?1 08/24/2023 Generated for Lisi anna/Robbin/eTransmitting on:?11/14/2024 02:02 PM EDT History and Physical Notes * HPI [...] Category Not es General Examination On exami [facility] today, he appears well. Skin is anicteric. Lungs are clear. Heart shows regular rate and rhythm. Abdomen is soft without focal mass or tenderness. Extremities are without edema.
--- OUTSIDE RECORDS SUMMARY | 2024-11-14 14:03 | XMS_ITS ---
Author Organization [facility] Address [address] [place] [address] Care Team Providers Care Watershed Program Manager Name Role Phone Maycol CORTEZ, Bashir Primary Care Provider Unavailab Rom Rose Unavailable [phone] Allergies No Known Allergies REASON FOR VISIT [...] 25 MG 1 tablet Oral Not-Taking Nystop 663857 UNIT/GM External Not-Taking Multivitamins Orally 01/27/2014 Activ [...] Ordered Date Performed Result Body Sit e 17019-LIDOEJF NAIL, 6 OR MORE 06/04/2024 N/A 85929-BPKC SKIN LESIONS, OVER 4 06/04/2024 N/A Encounters Encounter Location Date Provider Diagnosis [facility] [address] [address] 06/04/2024 Rom Pollock Type 2 diabetes mellitus with diabetic polyneuropathy E11.42 and Tinea unguium B35.1 Assessments Encounter Date Diagnosis (ICD Code) Assessment Notes Treatment Notes Treatment Clinical Notes Section Notes 06/04/2024 Type 2 diabetes mellitus with diabetic polyneuropathy (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.42) 06/04/2024 Tinea unguium (ICD-10 - B35.1) Plan Of Treatment Pending Test Test Name Order Date 85321-LRBCIGH NAIL, 6 OR MORE 06/04/2024 78197-CQMU SKIN LESIONS, OVER 4 06/04/20 24 Next Appt Details Follow Up: prn, Reason: Provider Name:Rom Pollock , 01/03/2025 12:30:00 PM, [address] [place] [address], [phone], Procedure Notes * Category Sub-Category Detail Notes Debride Nail 6-10 Nail debridement Performance o f this nail treatment by a nonprofessional would put this patients foot and overall health at risk. Therefore, nail debridement was performed extensively to reduce/remove overall nail length, girth, thickness, subungual debris, and necrotic tissue, by manual and/or electrical means through the use of a nail nipper and/or dremel-type concrete wall grinder operator, to a more viable healthy nail plate or bed tissue 6-10. Silver nitrate used for any petechial bleeding as necessary. Definitive antifungal treatment options have been reviewed and discussed with the patient. The patient chooses, no pharmaceutical tx - 75804 Keratoma Treatment Parring or Cutting o f Benign Hyperkeratotic Lesion(s) (-57) More than 4 Lesions - The Benign hyperkeratotic lesions, as described above were pared, and/or cut utilizing a sterile 15 blade, tissue nippers, and/or dremel - 33410 Progress Notes * Chris HERMOSILLO HDOB: 1 (84 yo M)Acc No.[id number]:06/04/2024 Progress Note Patient:?Chris Hermosillo Provider:?Rom Pollock DPM :1940???Age:84 Y???Sex:Male Filiberto e:06/04/2024 Address:[address] [place], [place] [id number] Pcp:Bashir Severino MD Subjective: * Chief Complaints: [...] Hospitalization/Major Diagno stic Procedure:?Hip replacement surgery 05/2015[facility]- [facility] /BP 200 CT scans [...] housework, Barn, gym. ?Marital status: . ?Occupation: [employer]. * Medications:?TakingamLODIPin e Besylate 2.5 MG Tablet [...] Foot Deformity (M20.41,M20.42), Preulcerative Skin Lesion(s) (L85.1Not-Taking/PRNNystop 201934 UNIT/GM Powder External hydroCHLOROthiazide 25 MG Tablet 1 tablet Oral traMADol HCl , Notes: prnLyrica 50 MG Capsule Orally once in morningMedication List reviewed and reconciled with the patientNot-Taking/PRN Nystop 571770 UNIT/GM Powder External Not-Taking/PRN hydroCHLOROthiazide 25 MG [...] use of a nail nipper and/or dremel-type concrete wall grinder operator, to a more viable healthy nail plate or bed tissue 6-10. Silver nitrate used for any petechial bleeding as necessary. Definitive antifungal treatment options have been reviewed and discussed with the patient. The patient chooses, no pharmaceutical tx - 05286.?Keratoma Treatment:?Parring or Cutting of Benign Hyperkeratotic Lesion(s)?(-57) More than 4 Lesions - The Benign hyperkeratotic lesions, as described above were pared, and/or cut utilizing a sterile 15 blade, tissue nippers, and/or dremel - 41849.? * Procedure Codes:?66206 DEBRI DE NAIL, 6 OR MORE, Modifiers: XS 53945 TRIM SKIN LESIONS, OVER 4, Modifiers: XS * Follow Up:?prn * Images: * Sign off status: Completed true * Provider:?Rom Pollock DPM Date:?2023 Generated for Santiago castillo/Robbin/Antelmo on:?11/14/2024 02:03 PM EDT History and Physical Notes * [...]
--- OUTSIDE RECORDS SUMMARY | 2024-11-14 14:03 | XMS_ITS | Continuity of Care Document ---
Author Organization [facility] Address [address] [place] [address]- Care Team Providers Care Supervisor Self Service Store Name Role Phone Maycol CORTEZ, Bashir Oquendo Primary Care Physician [phone] Encounter [facility] Date(s): 10/09/24 - 11/08/24 [facility] [address] [place] [address]- Encounter Type: Triage Allergies, Adverse Reactions, Alerts No Known Allergies Immunizations Given and Recorded Vaccine Date Status Refusal Reason SARS-CoV-2(COVID-19)mRNA-LNP vac([id number]) 06/07/24 Recorded SARS-CoV-2(COVID-19)mRNA-LNP vac([id number]) 07/04/23 Recorded influenza virus vaccine, inactivated 05/24/24 Mohan rded influenza virus vaccine, inactivated 06/02/23 Mohan rded influenza virus vaccine, inactivated 07/08/22 Mohan rded influenza virus vaccine, inactivated 07/15/21 Mohan rded influenza virus vaccine, inactivated 04/28/20 Mohan rded influenza virus vaccine, inactivated 06/19/19 Mohan rded influenza virus vaccine, inactivated 05/12/18 Mohan rded influenza virus vaccine, inactivated 07/06/17 Mohan rded influenza virus vaccine, inactivated 07/13/16 Mohan rded [id number] 12y+ bivalent booster vax 07/12/22 Recorded SARS-CoV-2 mRNA (ekupzke-khuh-bakoy) vax 12/13/21 Recorded SARS-CoV-2 (COVID-19) mRNA BNT-162b2 vac 05/20/21 Recorded SARS-CoV-2 (COVID-19) mRNA BNT-162b2 vac 09/25/20 Recorded SARS-CoV-2 (COVID-19) mRNA BNT-162b2 vac 09/04/20 Recorded pneumococcal 23-valent vaccine 07/13/16 Recorded Medications amitriptyline 25 mg oral tablet 1 tablet = 25 mg, By Mouth, Daily at bedtime, 0 Refills, Maintenance, 06/19/15 2:25:58 AM EST Start Date: 06/19/15 Status: Ordered Repeat number: 1 apixaban 2.5 mg oral tablet 1 tablet = 2.5 mg, By Mouth, 2 times a day, # 14 tablet, 0 Refills, Maintenance, 05/24/22 9:16:00 AM EDT, Tablet, [facility], Partial fill upon patient request if the prescription is for a schedule II opioid drug., 173, cm, 05/24/22 3:48:00 EDT, Height, 100.45, kg, 05/23/22 8:30:00 EDT, Dry Weight Start Date: 05/24/22 Stop Date: 05/31/22 Status: Ordered Quantity: 14.0 Unit: tablet Repeat number: 1 apixaban 5 mg oral tablet = 5 mg, By Mouth, 2 times a day, # 120 tablet, 4 Refills, Maintenance, 06/02/18 10:11:16 AM EDT, Tablet, [facility] Start Date: 06/02/18 Stop Date: 03/29/19 Status: Ordered Quantity: 120.0 Unit: tablet Repeat number: 5 Aspirin = 81 mg, By Mouth, Daily, 0 Refills, Maintenance, 06/19/15 2:29:04 AM EST Start Date: 06/19/15 Status: Ordered Repeat number: 1 Colace Capsule 100 mg, 1, capsule, By Mouth, 2 times a day, PRN, Refills 0, Maintenance, as needed for constipation, 05/24/22 9:21:00 AM EDT, Partial fill upon patient request if the prescription is for a schedule II opioid drug. Start Date: 05/24/22 Status: Ordered Repeat number: 1 Lipitor 80 mg oral tablet 1 tablet = 80 mg, By Mouth, Daily, # 60 tablet, 4 Refills, Maintenance, Tablet, Route to Pharmacy Electronically, [id number], [facility] Start Date: 06/02/18 Stop Date: 10/30/18 Status: Ordered Quantity: 60.0 Unit: tablet Repeat number: 5 loratadine 10 mg oral tablet 10 mg, 1, tablet, By Mouth, Daily, # 30 tablet, Refills 0, Maintenance, 05/16/17 3:10:33 PM EDT Start Date: 05/16/17 Status: Ordered Quantity: 30.0 Unit: tablet Repeat number: 1 Lyrica 100 mg oral capsule 1 capsule = 100 mg, By Mouth, Daily at bedtime, 0 Refills, Maintenance, 06/19/15 2:25:16 AM EST Start Date: 06/19/15 Status: Ordered Repeat number: 1 metFORMIN 500 mg oral tablet 1 tablet = 500 mg, By Mouth, Daily, To start only after 48 hours of discharge, # 60 tablet, 4 Refills, Maintenance, 06/02/18 10:11:43 AM EDT, Tablet, [facility] Start Date: 06/02/18 Status: Ordered Quantity: 60.0 Unit: tablet Repeat number: 5 MiraLax Powder 1 pack/packet = 17 Gm, By Mouth, Daily, PRN Constipation, 0 Refills, Maintenance, 05/24/22 9:21:00 AM EDT, Powder, Partial fill upon patient request if the prescription is for a schedule II opioid drug. Start Date: 05/24/22 Status: Ordered Repeat number: 1 omeprazole 40 mg oral enteric coated capsule = 40 mg, By Mouth, Daily, # 60 capsule, 3 Refills, Maintenance, 06/02/18 10:13:04 AM EDT, Suspension, [facility] Start Date: 06/02/18 Status: Ordered Quantity: 60.0 Unit: capsule Repeat number: 4 sotalol 80 mg oral tablet 80 mg, 1, tablet, By Mouth, 2 times a day, This was increased to 80mg BID at [place]., # 120 tablet, Refills 4, Tot. Refills 4, Maintenance, 06/02/18 10:11:35 AM EDT, Route to Pharmacy Electronically,[facility] Start Date: 06/02/18 Stop Date: 10/30/18 Status: Ordered Quantity: 120.0 Unit: tablet Repeat number: 5 Tylenol Caplet Extra Strength = 1,000 mg, By Mouth, 2 times a day, 0 Refills, Maintenance, 06/19/15 2:30:51 AM EST Start Date: 06/19/15 Status: Ordered Repeat number: 1 Problem List Condition Confirmation Course Effective Dates Status H ealth Status Informant NSTEMI (non-ST elevated myocardial infarction) Confirmed Active Atrial fibrillation Confirmed Active Hypertension Confirmed Active Macular degeneration of both eyes Confirmed Active Leg edema Confirmed Active Acid reflux disease Confirmed Active Hyperlipidemia Confirmed Active Current use of usp anticoagulation Confirmed Active Diabetic neuropathy Confirmed Active Obese class I Confirmed Active Type 2 diabetes mellitus Confirmed Active Social History Social History Type Response Tobacco Other: Former smoker . Sex Sex Representation Male (finding) Patient Care team information Care Team Personnel Name: Kristi Walter RN Position: S RN Member Role: Primary Care Nurse Name: Kaila Noyola RN Position: S SN RN Member Role: Primary Care Nurse Name: Abbey Medina RN Position: S SN RN Member Role: Primary Care Nurse Name: Bashir Severino MD Position: Reference Physician Member Role: PCP Address: [address] [place] [address], [address] Telecom: Name: Jermaine Delgadillo RN Position: S RN Member Role: Primary Care Nurse Name: Joseph Araujo MD Position: [facility] Cardiology MD Member Role: Lifetime Consulting Physician Address: [address] [place] [address] [facility] [address] Telecom: Name: Shona Sanchez RN Position: S RN Member Role: Primary Care Nurse Name: Beena Boucher RN Position: S RN Member Role: Primary Care Nurse Care Team Related Persons Name: CHARLY HERMOSILLO Insurance Providers Guarantor name: TERRI HERMOSILLO [facility] Plan Information #: 1 Payer: [facility] MEDICARE ADV HMO Member Number: NA Policy Number: NA Group Number: NA
== END 2024-11-14 11:53 | disposition home or self-care (01) ==
LOC: HO.HVS 11:19
PROVIDERS: PCP Family Medicine; Visit Provider Surgery Vascular Surgery
DX: I73.9 Peripheral vascular disease, unspecified (principal)
CPT/HCPCS: 99214

== ENCOUNTER → 2024-11-14 11:19 | Outpatient (BNVA) | payer MEDICARE, SELFPAY | PROVIDERS: PCP Family Medicine; Visit Provider Surgery Vascular Surgery | DX: I73.9 Peripheral vascular disease, unspecified (principal) | CPT/HCPCS: 99212 ==

== ENCOUNTER 2024-12-02 12:22 | Outpatient (AMB) | payer MEDICARE, SELFPAY ==
--- NOTE | 2024-12-02 12:42 | MHC.OFFVIS ---
Vital Signs 12/02/24 12:45 Height 5 ft 8 in Weight 230 lb 9.656 oz BMI 35.1 BP 130/64 Blood Pressure Location Lt brachial Position Sitting Pulse 59 Pulse Source Monitor Intake Visit Reasons: 6 mth fu (rs) Intake Note: 6 mth f/up Supercharger Mechanic Required: No Accompanied by: Spouse Allergies No Known Allergies Allergy (Verified 11/14/24 11:34) Medication List - Last Reconciled 12/02/24 by Joseph Araujo MD amitriptyline 50 mg PO DAILY amlodipine 5 mg PO BEDTIME apixaban 5 mg PO BID 90 days aspirin (Adult Aspirin Regimen) 81 mg PO DAILY atorvastatin 40 mg PO BEDTIME ciclopirox 0.77% appl topical coenzyme Q10 (Co Q-10) 100 mg PO DAILY empagliflozin (Jardiance) 10 mg PO DAILY 90 days fenofibrate nanocrystallized 48 mg PO DAILY isosorbide mononitrate ER 30 mg PO DAILY loratadine 10 mg PO DAILY metformin 1,000 mg PO BEDTIME multivitamin 1 tab PO DAILY nitroglycerin 0.4 mg sublingual every 5 min as needed for chest pain, max 3 doses per event; every 5 min as needed for chest pain, max 3 doses per event 30 days omeprazole 40 mg PO DAILY pregabalin 100 mg PO BEDTIME sotalol 80 mg PO DAILY tramadol 50 mg PO Q8H PRN HPI Comments Details: 84-year-old gentleman here for follow-up. He has background history of paroxysmal atrial fibrillation and has been on sotalol and has been sinus rhythm. He also has known coronary disease with previous PCI right coronary artery and circumflex arteries. Clinically stable and has been doing well. He is just recovering from left knee replacement. He is undergoing rehab at this stage and 3 weeks out from surgery. He has significant pain in the knee but is trying to exercise regularly at rehab facility. Denying any chest pain or shortness of breath. Overall clinically stable. 06/07/2023: He returns for follow-up. His EKG in the office showing inferior Q-waves which are new. He is denying any symptoms. He is actually more active than before and has been going to gym every day and exercising up to 5 hours. He is denying any chest discomfort or significant shortness of breath. His main complaint again is fatigue. No bleeding issues. Taking his medications regularly. Blood pressure control is good. He is in sinus rhythm on sotalol. 01/03/24: He returns for follow-up. He came back from [place] in 11/18/2023. He had some blood workup done recently which showed triglycerides more than 600. He was started on fenofibrate by his primary care physician. He has not noticed any muscle aches and pains. He has chronic joint pains which are similar to before. He said his diet while he was in [place] was not great because of using a lot of processed foods and canned food. They are changing the diet while there back in [place]. He is denying any chest pains or shortness of breath. No bleeding concerns on apixaban. He is on sotalol with normal QT interval and he is in sinus bradycardia. 05/29/2024: He is here for follow-up. He is denying any chest discomfort but continues to get some shortness of breath with activities. He has lower extremity edema. He has peripheral neuropathy on chronic metformin. He has CKD and is going to seen Nephrology. 12/02/2024: Can is here for follow-up. He came back from [place] in October. He has spent the echeverria in [place] and said he was walking without any significant issues. He does get problem when he goes uphill and gets short of breath. Main issue again is pain in his feet and legs due to arthritis and neuropathy. He is feeling fatigued and goes to sleep very easily. He is saying that when he is sitting he goes to sleep right away. 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 [facility] Medical History (Updated 12/02/24 @ 13:26 by Joseph Araujo MD) JOHANNY (obstructive sleep apnea) Other fatigue Other idiopathic peripheral autonomic neuropathy Essential (primary) hypertension Gastro-esophageal reflux disease without esophagitis Intrinsic (allergic) eczema Pruritus, unspecified Benign prostatic hyperplasia without lower urinary tract symptoms Type 2 diabetes mellitus with diabetic nephropathy Venous insufficiency (chronic) (peripheral) Chronic kidney disease, stage 3a Atherosclerotic heart disease of [place] coronary artery without angina pectoris Type 2 diabetes mellitus with diabetic polyneuropathy Obstructive sleep apnea (adult) (pediatric) Impacted cerumen of both ears Essential tremor Ventricular premature depolarization Pure hyperglyceridemia Pure hypercholesterolemia, unspecified Pain in right knee Hyperkalemia Acute metabolic acidosis Ataxic gait Hypertension PAF (paroxysmal atrial fibrillation) Stable angina Surgical History Hx of cholecystectomy History of cardiac cath History of total right knee replacement History of hip surgery Family History Father No problems noted. Mother No problems noted. Social History Alcohol intake: current Alcohol intake frequency: holidays/special occasions only Patient Tobacco Use Status: Former Tobacco user Years Smoked: 5 +/- Review of Systems Const Denies chills, Denies fatigue, Denies fever(s), Denies frequent falls, Denies weakness, Denies weight gain and Denies weight loss ENT Denies dizziness Card Denies chest pain, Denies leg edema, Denies lightheadedness, Denies palpitations, Denies dyspnea and Denies dyspnea on exertion Resp Denies cough, Denies dyspnea and Denies dyspnea on exertion GI Denies hematochezia Musc Denies abnormal gait, Denies muscle weakness, Denies numbness, Denies radiating pain into limb and Denies tingling Neuro Denies abnormal gait, Denies dizziness, Denies frequent falls, Denies numbness, Denies tingling and Denies weakness Endo Denies fatigue and Denies palpitations Physical Exam Vital Signs: Last Vital Signs Pulse 59 12/02/24 12:45 BP 130/64 12/02/24 12:45 BMI result Body Mass Index 35.1 GENERAL APPEARANCE: in no acute distress, pleasant. NECK: no carotid bruit, no jugular venous distention. SKIN: no suspicious lesions, warm and dry. HEART: no murmurs, regular rate and rhythm. LUNGS: Crackles at bases. ABDOMEN: soft, nontender. EXTREMITIES: Mild edema. PERIPHERAL PULSES: equal. NEUROLOGIC: No gross deficits, AAO X 3 Office Procedures EKG Details: Sinus bradycardia 59 beats per minute, normal axis, inferior infarct, QTC 407 milliseconds. [id number], Complete Assessment & Plan Assessment & Plan (1) JOHANNY (obstructive sleep apnea): Code(s): G47.33 - Obstructive sleep apnea (adult) (pediatric) Category: Medical (2) Hypertension: Code(s): I10 - Essential (primary) hypertension Category: Medical Qualifiers: Hypertension type: primary hypertension Qualified Code(s): I10 - Essential (primary) hypertension (3) PAF (paroxysmal atrial fibrillation): Code(s): I48.0 - Paroxysmal atrial fibrillation Category: Medical (4) Stable angina: Code(s): I20.8 - Other forms of angina pectoris Category: Medical Plan 84-year-old gentleman who is here for follow-up. He has known history of paroxysmal atrial fibrillation on sotalol and has been on sinus rhythm. He is on anticoagulation with apixaban 5 mg twice a day. Denying any chest discomfort. He has stable dyspnea with activities. He gets out of breath when he is going uphill. Main issue is pain in his feet and legs which slow him down. He is fatigued easily and goes to sleep a lot during the day. He had a sleep study many years ago and has not had any titration study recently. I am referring him for in-lab sleep titration study. We will also repeat echocardiography to assess LV function. Blood pressure well controlled. He will see us back in 6-9 months. Thank you for allowing me to participate in the care of your patient. Please feel free to contact me if you have any questions. Orders: Orders RT PSG in-lab sleep titration Today G47.33 - Obstructive sleep apnea (adult) (pediatric) CA echo transthorac w con Today I20.8 - Other forms of angina pectoris Coding Level of Care Code Est Pt Level 4 (97344) Diagnoses JOHANNY (obstructive sleep apnea) G47.33 Primary hypertension I10 Hypertension type: primary hypertension PAF (paroxysmal atrial fibrillation) I48.0 Stable angina I20.8 CPT Codes EKG - CPT: 16946-[id number], Complete ([id number])
[2024-12-02 12:45] VITALS: BP 130/64; PULSE 59; BMI 35.1
--- OUTSIDE RECORDS SUMMARY | 2024-12-02 13:48 | XMS_ITS ---
Author Organization [facility] Address [address] [place] [address] Care Team Providers Care Garment Supervisor Name Role Phone Bashir Severino MD Primary [...] 06/24/2024 Encounters Encounter Location Date Provider Diagnosis [facility] [address] [place] [address] 06/24/2024 Jayme Soni Jr Hearn's esophagus without [...] Name:Jayme barakat Jr, 06/23/2025 09:00:00 AM, [address], [address], [place], [address], Progress Notes * AMMON HERMOSILLOHDOB:1940 (84 yo M)Acc No.[id number]:06/24/2024 Progress Notes Patient:?TERRI HERMOSILLO Provider:?Jayme Soni MD :1940???Age:84 Y???Sex:Male Filiberto e:06/24/2024 Address: [place], [place] Pcp:Bashir Severino MD Subjective: * Chief Complaints: [...] Provider:?Jayme Soni MD Date:?1 08/24/2023 Generated for Santiago castillo/Robbin/eTransmitting on:?12/02/2024 01:47 PM EDT History and Physical Notes * [...] Category Not es General Examination On exami [place] [facility] today, he appears well. Skin is anicteric. Lungs are clear. Heart shows regular rate and rhythm. Abdomen is soft without focal mass or tenderness. Extremities are without edema.
--- OUTSIDE RECORDS SUMMARY | 2024-12-02 13:48 | XMS_ITS | Patient Health Record ---
Author Organization [facility] Address [address] [place] [address] Care Team Providers Care Roller Skate Assembler Name Role Phone Bashir Severino MD Primary [...] Problem Status W/U Status Risk Notes Problem 769865518 Colon cancer screening (Z12.11) Active confirmed Problem 828830514 Gastro-esophagea l reflux disease with esophagitis (K21.0) Active confirmed Problem 910234929 Osorio's esophagus without dysplasia (K22.70) Active confirmed Problem 77261642 Rectal urgency (R15.2) Active confirmed Problem 294792807 Throat pain (R07.0) Active confirmed Problem 05670683 Diarrhea, unspecified type (R19.7) Active confirmed Problem Gastro-esophagea l reflux disease with esophagitis, with bleeding (K21.01) Active confirmed Problem Gastroesophageal reflux disease with esophagitis (disorder) (679797285) Gastroesophageal reflux disease with esophagitis, unspecified whether hemorrhage (K21.00) Active confirmed Vital Signs Temperature 98.6 degrees Fahrenheit 06/24/2024 Blood pressure diastolic 00 mm Hg 06/24/2024 Height 67 in 06/24/2024 Blood pressure systolic 000 mm Hg 06/24/2024 Weight 230 lbs 06/24/2024 BMI 36.02 kg/m2 06/24/2024 Encounters Encounter Location Date Provider Diagnosis [facility] [address] [place] [address] 06/24/2024 Jayme Soni Jr Osorio's esophagus without [...] Provider Name:Jayme barakat , 06/23/2025 09:00:00 AM, [address] [place] [address], [address], [place], [address], Insurance Providers Payer Name Payer Address Payer Phone Subscriber Number Group Number Insured Name Patient Relationship to Insured Coverage Start Date Coverage End Date [facility] [address] [place] [phone] [id number] TERRI HERMOSILLO Self - patient is the [...]
--- OUTSIDE RECORDS SUMMARY | 2024-12-02 13:48 | XMS_ITS ---
Author Organization [facility] Address [address] [place] [address] Care Team Providers Care Antique Collector Name Role Phone Maycol CORTEZ, Bashir Primary Care Provider Unavailab Rom Rose Unavailable [phone] Encounters Encounter Location Date Provider Diagnosis [address] [address] 11/19/2024 Rom Pollock Plan Of Treatment Next Appt Details Provider Name:Rom Pollock , 01/03/2025 12:30:00 PM, [address] [place] [address], [phone], Progress Notes * Chris AVALOS HDOB: (84 yo M)Acc No.[id number]:11/19/2024 Progress Note Patient:?Chris AVALOS Provider:?Rom Pollock DPM :1940???Age:84 Y???Sex:Male Filiberto e:11/19/2024 Address:[address] [place] [address] Pcp:Bashir Severino MD Subjective: * Chief Complaints: * ??? * Medical History:? Objective: * Vitals:? Assessment: Plan: * Treatment: * Images: * The named appointment provid er may or may not be the originator of this progress note, and it is not deemed complete until electronically signed by the appointment provider. Sign off status: Pending * Provider:Iraj Pollock DPM Date:?2024 Generated for Santiago castillo/Robbin/Antelmo on:?12/02/2024 01:48 PM EDT
--- OUTSIDE RECORDS SUMMARY | 2024-12-02 13:49 | XMS_ITS ---
Author Organization [facility] Address [address] [place] [address] Care Team Providers Care Last Puller Name Role Phone Bashir Severino MD Primary Care Provider Unavailab Rom Rose Unavailable [phone] REASON FOR VISIT r/s 11/19 Encounters Encounter Location Date Provider Diagnosis [address] [address] 10/11/2024 Rom Pollock Plan Of Treatment Next Appt Details Provider Name:Rmo Pollock , 01/03/2025 12:30:00 PM, [address] [place] [address], [address], Progress Notes * Chris AVALOS HDOB: (84 yo M)Acc No.[id number]:10/11/2024 Patient:?Chris AVALOS :1940???Age:84 Y???Sex:Male Address:[address] [place] [address], [address] * true * Date:? Generated for Printi ng/Fairasemag/eTransmitting on:?12/02/2024 01:49 PM EDT
--- OUTSIDE RECORDS SUMMARY | 2024-12-02 13:49 | XMS_ITS ---
Author Organization [facility] [place] Address [address] [place] [address] Care Team Providers Care Food Vendor Name Role Phone Maycol CORTEZ, Bashir Primary Care Provider Unavailab Rom Rose Unavailable [phone] Allergies No Known Allergies REASON FOR VISIT [...] 25 MG 1 tablet Oral Not-Taking Nystop 124647 UNIT/GM External Not-Taking Multivitamins Orally 01/27/2014 Activ [...] Ordered Date Performed Result Body Sit e 28920-NBMURLP NAIL, 6 OR MORE 06/04/2024 N/A 00737-ZQIP SKIN LESIONS, OVER 4 06/04/2024 N/A Encounters Encounter Location Date Provider Diagnosis [facility] [address] [address] 06/04/2024 Rom Pollock Type 2 diabetes mellitus with diabetic polyneuropathy E11.42 and Tinea unguium B35.1 Assessments Encounter Date Diagnosis (ICD Code) Assessment Notes Treatment Notes Treatment Clinical Notes Section Notes 06/04/2024 Type 2 diabetes mellitus with diabetic polyneuropathy (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.42) 06/04/2024 Tinea unguium (ICD-10 - B35.1) Plan Of Treatment Pending Test Test Name Order Date 55282-OWFKSKR NAIL, 6 OR MORE 06/04/2024 13811-FVFO SKIN LESIONS, OVER 4 06/04/20 24 Next Appt Details Follow Up: prn, Reason: Provider Name:Rom Pollock , 01/03/2025 12:30:00 PM, [address] [place] [address], [id number], Procedure Notes * Category Sub-Category Detail Notes Debride Nail 6-10 Nail debridement Performance o f this nail treatment by a nonprofessional would put this patients foot and overall health at risk. Therefore, nail debridement was performed extensively to reduce/remove overall nail length, girth, thickness, subungual debris, and necrotic tissue, by manual and/or electrical means through the use of a nail nipper and/or dremel-type universal grinder set up operator, to a more viable healthy nail plate or bed tissue 6-10. Silver nitrate used for any petechial bleeding as necessary. Definitive antifungal treatment options have been reviewed and discussed with the patient. The patient chooses, no pharmaceutical tx - 15995 Keratoma Treatment Parring or Cutting o f Benign Hyperkeratotic Lesion(s) (-57) More than 4 Lesions - The Benign hyperkeratotic lesions, as described above were pared, and/or cut utilizing a sterile 15 blade, tissue nippers, and/or dremel - 93441 Progress Notes * Chris HERMOSILLO HDOB: 1 (84 yo M)Acc No.[id number]:06/04/2024 Progress Note Patient:?Chris Hermosillo Provider:?Rom Pollock DPM :1940???Age:84 Y???Sex:Male Filiberto e:06/04/2024 Address:[address] [place], [place] [id number] Pcp:Bashir Severino MD Subjective: * Chief Complaints: [...] Procedure:?Hip replacement surgery 05/2015[facility] [place]- [place] /BP 200 CT scans taken overnight [...] housework, Barn, gym. ?Marital status: . ?Occupation: [employer]. * Medications:?TakingamLODIPin e Besylate 2.5 MG Tablet [...] Foot Deformity (M20.41,M20.42), Preulcerative Skin Lesion(s) (L85.1Not-Taking/PRNNystop 564845 UNIT/GM Powder External hydroCHLOROthiazide 25 MG Tablet 1 tablet Oral traMADol HCl , Notes: prnLyrica 50 MG Capsule Orally once in morningMedication List reviewed and reconciled with the patientNot-Taking/PRN Nystop 376773 UNIT/GM Powder External Not-Taking/PRN hydroCHLOROthiazide 25 MG [...] use of a nail nipper and/or dremel-type universal grinder set up operator, to a more viable healthy nail plate or bed tissue 6-10. Silver nitrate used for any petechial bleeding as necessary. Definitive antifungal treatment options have been reviewed and discussed with the patient. The patient chooses, no pharmaceutical tx - 03811.?Keratoma Treatment:?Parring or Cutting of Benign Hyperkeratotic Lesion(s)?(-57) More than 4 Lesions - The Benign hyperkeratotic lesions, as described above were pared, and/or cut utilizing a sterile 15 blade, tissue nippers, and/or dremel - 67668.? * Procedure Codes:?41350 DEBRI DE NAIL, 6 OR MORE, Modifiers: XS 47920 TRIM SKIN LESIONS, OVER 4, Modifiers: XS * Follow Up:?prn * Images: * Sign off status: Completed true * Provider:?Rom Pollock DPM Date:?2023 Generated for Santiago castillo/Robbin/Antelmo on:?12/02/2024 01:48 PM EDT History and Physical Notes * [...]
--- OUTSIDE RECORDS SUMMARY | 2024-12-02 13:49 | XMS_ITS | Continuity of Care Document ---
Author Organization [facility] Address [address] [place] [address] Phone Care Team Providers Care Building Guard Deputy Sheriff Name Role Phone Karin CORTEZ, Jalil Unavailable Unavailable Allergies, Adverse Reactions, Alerts Substance Reaction Status Criticality No Known Allergies Active No Inform ation Medications Medication Instructions Dosage Effective Dates (start - stop) Status Comments Jardiance 10 mg tablet take 1 tablet by oral route every day in the morning 10 MG - Active amitriptyline 25 mg tablet TAKE 1 TABLET BY MOUTH ONCE A DAY AT BEDTIME - Active atorvastatin 40 mg tablet TAKE 1 TABLET BY MOUTH AT BEDTIME - Active pregabalin 100 mg capsule - Active omeprazole 40 mg capsule,delayed release TAKE ONE CAPSULE BY MOUTH EVERY DAY - Active Eliquis 5 mg tablet - Active nitroglycerin 0.4 mg sublingual tablet - Active metformin ER 500 mg tablet,extended release 24 hr TAKE 1 TABLET BY MOUTH AT BEDTIME - Active sotalol 80 mg tablet TAKE ONE TABLET BY MOUTH EVERY DAY - Active ciclopirox 0.77 % topical cream [...] Comments Panel Description: Not Available Final Image [facility] s Map Single Exam Report- 1 Advance Directives Directive Yes / No Effective Date File Name No Information Encounters Encounter Description Practice Location Reason(s) For Visit Diagnoses Date Provider Providers Copied on Encounter E&M est moderate complexity [facility], [address], [place], [id number] , [place] tel: [phone] WAMD (chief complaint) Exudative age-related macular degeneration, left eye, with active choroidal neovascularizationExu dative age-related macular degeneration, right eye, with active choroidal neovascularization 5 Karin rod. [address], [place], [id number] , [place]. tel: [phone] Referring Provider: Clark Lacey, [address] [place], [address]. tel:[phone] [facility], [address], [place], [place], [id number] , [place] tel: [phone] TEA Christie WAMD (chief complaint) Exudative age-related macular degeneration, left eye, with active choroidal neovascularization Sep-0 4 Abhijit Rodas. [address] [place], [address], [place]. tel:[phone] Referring Provider: Clark Lacey, [address] [place], [address]. tel:[phone] E&M est moderate complexity [facility], [address], [place], [place], [id number] , [place] tel:[phone] AMRIK Christie WAMD (chief complaint) Exudative age-related macular degeneration, right eye, with active choroidal neovascularizationExu dative age-related macular degeneration, left eye, with active choroidal neovascularization 4 Abhijit Rodas. [address] [place], [address], [place]. tel: [phone] Referring Provider: Clark Lacey, [address] [place], [address]. tel:[phone] [facility], [address], [place], [place], [id number] , [place] tel: [phone] AMRIK Christie WAMD (chief complaint) Exudative age-related macular degeneration, right eye, with active choroidal neovascularizationVit reous degeneration, bilateralNonexudative age-related macular degeneration, left eye, intermediate dry stage Sep- 3 Abhijit Rodas. [address] [place], [address], [place]. tel: [phone] Referring Provider: Clark Lacey, [address] [place], [address]. tel:[phone] [facility], [address], [place], [place], [id number] , [place] tel: [phone] TEA Christie WAMD w/ SRH (chief complaint) Exudative age-related macular degeneration, right eye, with active choroidal neovascularization 3 Abhijit Rodas. [address] [place] [address].[place], [address], [place]. tel: [phone] Referring Provider: Clark Lacey, [address] [place] [address]., [place], [address]. tel:[phone] E&M New moderate complexity [facility], [address] [place] [address], [id number] , tel: [phone] AMRIK Cantu WAMD (chief complaint) Exudative age-related macular degeneration, right eye, with active choroidal neovascularizationNon exudative age-related macular degeneration, left eye, intermediate dry stageVitreous degeneration, bilateral 3 Abhijit Rodas. [address] [place] [address]., [place], [address], . tel: [phone] Referring Provider: Clark Lacey, [address] [place] [address]., [place], [address]. tel:[phone] Family History Family Member Type Diagnosis Age At Onset No Information Immunizations Vaccine Date Status Comments Flu (split) (3 yrs or older) administered Source: Other Provider Flu (split) (3 yrs or older) administered Source: Other Provider Pneumo (2 yrs or older)(PPV) administered Source: Other Provider Flu (split) (3 yrs or older) administered Source: Other Provider Payers Payer name Insurance type Covered republican ID [employer](Zair[place] 16 [id number] Social History Type Description Quantity Date Captured [...] x 5, pt was last seen [place] and found active SRH and SRF due to CF vision pt and Dr declined tx at that time last injection was 11/20/20. Pt came down here and saw Dr. Soriano and was referred to us due to active edema and heme in OD. Records are scanned in. Pt has not noticed a change in his VA OD at all, pt went to [facility] to get new glasses mainly for [...]
== END 2024-12-02 13:27 | disposition home or self-care (01) ==
LOC: HO.HCS 12:23
PROVIDERS: PCP Family Medicine; Visit Provider Internal Medicine Cardiovascular Disease
DX: G47.33 Obstructive sleep apnea (adult) (pediatric) (principal); I10 Essential (primary) hypertension; I48.0 Paroxysmal atrial fibrillation; I20.89 Other forms of angina pectoris
CPT/HCPCS: 93010; 99214

== ENCOUNTER → 2024-12-02 12:22 | Outpatient (BNVA) | payer MEDICARE, SELFPAY | PROVIDERS: PCP Family Medicine; Visit Provider Internal Medicine Cardiovascular Disease | DX: I48.0 Paroxysmal atrial fibrillation (principal); G47.33 Obstructive sleep apnea (adult) (pediatric); I10 Essential (primary) hypertension; I20.89 Other forms of angina pectoris | CPT/HCPCS: 93005; 99212 ==

== ENCOUNTER 2024-12-27 10:30 | Outpatient (REF) | payer MEDICARE, SELFPAY ==
--- NOTE | ~2024-12-27 | US_ITS ---
EXAMINATION: US NONINVASIVE ASSESSMENT OF THE bilateral LOWER EXTREMITY WITH ARTERIAL DUPLEX AND ANKLE BRACHIAL INDICES (ABIS) CLINICAL INFORMATION: Peripheral vascular disease. History of cyst hypertension, smoking and hyperlipidemia COMPARISON: None available. TECHNIQUE: Duplex Doppler techniques with waveform analysis and measurement of velocities in the common femoral, profunda femoris, superficial femoral, popliteal and tibial arteries were performed. In addition, ankle pulse volume recordings, ankle pressure measurements and ankle brachial indices were obtained of the bilateral lower extremity arterial system. The study was performed only at rest. FINDINGS: NONINVASIVE ASSESSMENT OF THE ARTERIES OF BILATERAL LOWER EXTREMITIES WITH ABIs: RIGHT LEG: Ankle-brachial index: 1.27 Ankle PVR: Abnormal waveform LEFT LEG: Ankle-brachial index: 1.20 Left ankle PVR: Abnormal waveform HIEU Reference: 0.9 - 1.4 = normal - no significant arterial disease 0.7 - 0.89 = mild peripheral arterial disease 0.51 - 0.69 = moderate peripheral arterial disease 0.50 = severe peripheral arterial disease RIGHT LOWER EXTREMITY DUPLEX ULTRASOUND: Common femoral artery: 205.2 cm/s. Triphasic flow. Profunda femoris artery: 104.5 cm/s. Biphasic flow. Superficial femoral artery (proximal): 103.6 cm/s. Biphasic flow. Superficial femoral artery (mid): 100.4 cm/s. Triphasic flow. Superficial femoral artery (distal): 133.7 cm/s. Triphasic flow. Popliteal artery: 108.6 cm/s. Triphasic flow are noted Posterior tibial artery: 151.2 cm/s. Triphasic flow. DPA: Systolic velocity 1 8.1 cm/second. Anterior tibial artery: Peak systolic velocity 20 cm/second Peroneal artery is not visualized. LEFT LOWER EXTREMITY DUPLEX ULTRASOUND: Common femoral artery: 155 cm/s. Biphasic flow. Profunda femoris artery: 96.4 cm/s. Biphasic flow. femoral artery (proximal): 153.9 cm/s. Triphasic flow. Superficial femoral artery (mid): 99.6 cm/s. Triphasic flow. Superficial femoral artery (distal): 131.2 cm/s. Triphasic flow. Popliteal artery: 156.9 cm/s. Triphasic flow. Posterior tibial artery: 145.4 cm/s) Triphasic flow. Peroneal arteries are not visualized. DTPA: Peak systolic velocity 76.5 cm/second. Anterior tibial artery: peak systolic velocity measures 88.1 cm/second. US/US arterial duplex BI w/ HIEU IMPRESSION: Suspect mild atherosclerotic plaque and mild stenosis right common femoral and posterior tibial artery. Normal systolic velocity and waveform left lower extremity. Electronically signed by: Win Jade MD 01/07/2025 09:25 AM EDT RP
--- OUTSIDE RECORDS SUMMARY | 2024-12-27 11:12 | XMS_ITS | Patient Health Record ---
[facility] [place] Address [address] [place] [address] Care Team Providers Care Magazine Grinder Loader Name Role Phone Bashir Severino MD Primary Care Provider Unavailab Rom Rose Unavailable [phone] Allergies No Known Allergies Results Component Value [...] 1 tablet Oral Not-Taking Eliquis Active Nystop 640849 UNIT/GM External Not-Taking amLODIPine Besylate 2.5 MG [...] Problem Acquired hammer toe of right foot (6712380332533059 ) Other hammer toe(s) (acquired), right foot (M20.41) Active confirmed Problem Acquired hammer toe of left foot (9344269335448805 ) Other hammer toe(s) (acquired), left foot (M20.42) Active confirmed Problem Polyneuropathy due to type 2 diabetes mellitus (841801690) Type 2 diabetes mellitus with diabetic polyneuropathy (E11.42) Active confirmed Vital Signs Blood pressure diastolic 72 mm Hg 06/04/2024 Height 5 ft 8 in in 06/04/2024 Blood pressure systolic 134 mm Hg 06/04/2024 Weight 225 lbs 06/04/2024 BMI 34.21 kg/m2 06/04/2024 Procedures Procedure Date Ordered Date Performed Result Body Sit e 49774-SQWZRXO NAIL, 6 OR MORE 02/20/2024 N/A 73243-MDPX SKIN LESIONS, OVER 4 02/20/2024 N/A 29459-TKLIUQV NAIL, 6 OR MORE 06/04/2024 N/A 04611-XPEP SKIN LESIONS, OVER 4 06/04/2024 N/A Encounters Encounter Location Date Provider Diagnosis [address] [address] 02/20/2024 Romsheryl WootenMaris Type 2 diabetes mellitus with diabetic polyneuropathy E11.42 and Tinea unguium B35.[address] [address] 06/04/2024 Rom Pollock Type 2 diabetes mellitus with diabetic polyneuropathy E11.42 and Tinea unguium B35.[address] [address] 10/11/2024 Rom Pollock Assessments Encounter Date Diagnosis (ICD Code) Assessment [...] Date Hemoglobin A1c 02/10/2015 Hemoglobin A1c 05/19/2015 22512-UFUQVLI NAIL, 6 OR MORE 02/10/2015 29711-ORNYKUQ NAIL, 6 OR MORE 05/19/2015 00395-IHSIGCF NAIL, 6 OR MORE 08/07/2015 94880-NUMRLAG NAIL, 6 OR MORE 11/24/2015 43130-HSCGJBT NAIL, 6 OR MORE 01/27/2014 80987-ONPSXJQ NAIL, 6 OR MORE 04/08/2014 80445-IYXNQOK NAIL, 6 OR MORE 07/04/2014 78970-PMHFUNW NAIL, 6 OR MORE 11/11/2014 40080-AAIMJTC NAIL, 6 OR MORE 02/23/2016 39113-LDAHLFH NAIL, 6 OR MORE 05/24/2016 36071-BQDXCZA NAIL, 6 OR MORE 11/22/2016 51292-PREXREQ NAIL, 6 OR MORE 02/21/2017 95380-IEJKBYN NAIL, 6 OR MORE 05/12/2017 62211-UIAJEID NAIL, 6 OR MORE 11/10/2017 50764-WISIJGG NAIL, 6 OR MORE 03/09/2018 84335-EANFFOX NAIL, 6 OR MORE 06/12/2018 39073-WKYYXWT NAIL, 6 OR MORE 11/27/2018 85956-HTXJFYS NAIL, 6 OR MORE 02/15/2019 52213-HGZSQID NAIL, 6 OR MORE 05/21/2019 61673-PJBDLSV NAIL, 6 OR MORE 11/26/2019 44677-DHRKFNI NAIL, 6 OR MORE 03/17/2020 62318-GTLOPUQ NAIL, 6 OR MORE 06/16/2020 23393-KHMJETZ NAIL, 6 OR MORE 09/22/2020 22848-XAUBDOT NAIL, 6 OR MORE 12/22/2020 76922-QMKMJYY NAIL, 6 OR MORE 04/09/2021 10107-QUQDJTA NAIL, 6 OR MORE 11/19/2021 22986-IOLIQIX NAIL, 6 OR MORE 02/18/2022 49922-OWUZDGP NAIL, 6 OR MORE 05/06/2022 16367-DDXZZSG NAIL, 6 OR MORE 11/25/2022 32836-EETIPOU NAIL, 6 OR MORE 02/24/2023 50537-JMIGMDU NAIL, 6 OR MORE 05/26/2023 33970-SPERHSZ NAIL, 6 OR MORE 11/21/2023 97804-ZFFSNGN NAIL, 6 OR MORE 02/20/2024 02278-QXTWINM NAIL, 6 OR MORE 06/04/2024 53388-Oiemxlcm Plate 05/21/2019 37033-NPHD SKIN LESIONS, OVER 4 05/21/20 91494-WSQG SKIN LESIONS, OVER 4 02/16/20 19 51123-OYAF SKIN LESIONS, OVER 4 03/17/20 20 40463-MBTP SKIN LESIONS, OVER 4 11/26/19 20 00050-WQGB SKIN LESIONS, OVER 4 04/09/20 64646-MGRS SKIN LESIONS, OVER 4 12/23/19 21 58119-ACKM SKIN LESIONS, OVER 4 09/22/19 21 57936-KKDZ SKIN LESIONS, OVER 4 06/16/20 20 39514-HRUD SKIN LESIONS, OVER 4 02/20/20 24 41129-DFHD SKIN LESIONS, OVER 4 11/21/19 24 07312-GWAS SKIN LESIONS, OVER 4 05/26/20 23 74032-SXWP SKIN LESIONS, OVER 4 02/25/20 23 76062-QMEY SKIN LESIONS, OVER 4 11/26/19 23 44302-CHHA SKIN LESIONS, OVER 4 05/06/20 22 27169-UKZL SKIN LESIONS, OVER 4 02/19/20 22 65574-WZGL SKIN LESIONS, OVER 4 11/20/19 22 12474-HOVI SKIN LESIONS, OVER 4 11/28/19 19 81985-BIOU SKIN LESIONS, OVER 4 06/12/20 18 85272-CGWL SKIN LESIONS, OVER 4 03/09/20 18 76170-GNIT SKIN LESIONS, OVER 4 11/11/19 18 92900-VJDK SKIN LESIONS, OVER 4 05/12/20 17 68760-WBTE SKIN LESIONS, OVER 4 11/23/19 17 47171-YQWR SKIN LESIONS, OVER 4 02/22/20 17 51875-UKYS SKIN LESIONS, OVER 4 05/24/20 16 38722-DSYL SKIN LESIONS, OVER 4 02/23/20 16 86800-MIOJ SKIN LESIONS, OVER 4 11/12/19 15 07934-KVOO SKIN LESIONS, OVER 4 07/04/20 14 02873-OJSS SKIN LESIONS, OVER 4 04/08/20 14 68183-WPKM SKIN LESIONS, OVER 4 11/24/19 16 59429-LQGP SKIN LESIONS, OVER 4 08/07/19 16 03060-PRMT SKIN LESIONS, OVER 4 02/11/20 15 74459-PMCU SKIN LESIONS, OVER 4 05/19/20 15 73313-YRQN SKIN LESIONS, OVER 4 06/04/20 24 92058-QMTE SKIN LESIONS, 2 TO 4 01/28/20 14 Next Appt Details Provider Name:Rom Pollock , 01/03/2025 12:30:00 PM, [address] [place], [address], Insurance Providers Payer Name Payer Address Payer Phone Subscriber Number Group Number Insured Name Patient Relationship to Insured Coverage Start Date Coverage End Date [employer]vantage [address] [place] [address] [phone] [id number] Chris Avalos Self - patient is the [...] Replacement left 04/2022 Hospitalization History Reason Date(Month/Year) [facility] [place]- [place] jose /BP 200 CT scans taken overnight cause too much sun 09/2021 Hip replacement surgery 05/2015
== END 2024-12-27 10:31 | disposition home or self-care (01) ==
LOC: HO.US 10:30
PROVIDERS: PCP Family Medicine; Visit Provider Surgery Vascular Surgery
DX: I73.9 Peripheral vascular disease, unspecified (principal)
CPT/HCPCS: 93922; 93925

== ENCOUNTER → 2024-12-27 10:32 | Outpatient (BNV) | payer MEDICARE, SELFPAY | PROVIDERS: PCP Family Medicine; Visit Provider Radiology Diagnostic Radiology | DX: I73.9 Peripheral vascular disease, unspecified (principal) | CPT/HCPCS: 93922; 93925 ==

== ENCOUNTER → 2025-01-02 07:49 | Outpatient (REF) | payer MEDICARE, SELFPAY ==
--- OUTSIDE RECORDS SUMMARY | 2025-01-02 07:51 | XMS_ITS | Patient Health Record ---
Author Organization [facility] miguel [place] Address [address] [place] [address] Care Team Providers Care Environmental Services Floor Tech Name Role Phone Bashir Severino MD Primary Care Provider Unavailab Rom Rose Unavailable [phone] Allergies No Known Allergies Results Component Value [...] 1 tablet Oral Not-Taking Eliquis Active Nystop 985543 UNIT/GM External Not-Taking amLODIPine Besylate 2.5 MG [...] Problem Acquired hammer toe of right foot (7964357520893153 ) Other hammer toe(s) (acquired), right foot (M20.41) Active confirmed Problem Acquired hammer toe of left foot (4120049063746642 ) Other hammer toe(s) (acquired), left foot (M20.42) Active confirmed Problem Polyneuropathy due to type 2 diabetes mellitus (917746951) Type 2 diabetes mellitus with diabetic polyneuropathy (E11.42) Active confirmed Vital Signs Blood pressure diastolic 72 mm Hg 06/04/2024 Height 5 ft 8 in in 06/04/2024 Blood pressure systolic 134 mm Hg 06/04/2024 Weight 225 lbs 06/04/2024 BMI 34.21 kg/m2 06/04/2024 Procedures Procedure Date Ordered Date Performed Result Body Sit e 67564-FBXYHBI NAIL, 6 OR MORE 02/20/2024 N/A 64970-QMWW SKIN LESIONS, OVER 4 02/20/2024 N/A 93651-MSJUJKM NAIL, 6 OR MORE 06/04/2024 N/A 12051-FRMM SKIN LESIONS, OVER 4 06/04/2024 N/A Encounters Encounter Location Date Provider Diagnosis [address] [address] 02/20/2024 Romsheryl WootenMaris Type 2 diabetes mellitus with diabetic polyneuropathy E11.42 and Tinea unguium B35.[address] [address] 06/04/2024 Rom Pollock Type 2 diabetes mellitus with diabetic polyneuropathy E11.42 and Tinea unguium B35.[address] [address] 10/11/2024 Rom Pollock Assessments Encounter Date Diagnosis [...] Date Hemoglobin A1c 02/10/2015 Hemoglobin A1c 05/19/2015 83804-YQXABPO NAIL, 6 OR MORE 02/10/2015 46989-PJFAKIN NAIL, 6 OR MORE 05/19/2015 37306-KJYCULV NAIL, 6 OR MORE 08/07/2015 86302-HGTCOYZ NAIL, 6 OR MORE 11/24/2015 51735-PTOLGFN NAIL, 6 OR MORE 01/27/2014 00683-MWUCXHU NAIL, 6 OR MORE 04/08/2014 10152-NQZZCJU NAIL, 6 OR MORE 07/04/2014 25551-GSEXQYL NAIL, 6 OR MORE 11/11/2014 88125-IQKUCPM NAIL, 6 OR MORE 02/23/2016 53135-SSTSIFM NAIL, 6 OR MORE 05/24/2016 87598-EFNMUGC NAIL, 6 OR MORE 11/22/2016 64207-WPYIGEC NAIL, 6 OR MORE 02/21/2017 50272-RGKFTMJ NAIL, 6 OR MORE 05/12/2017 71279-EIFIVZX NAIL, 6 OR MORE 11/10/2017 16054-GJXXBAX NAIL, 6 OR MORE 03/09/2018 94972-HZUHEWD NAIL, 6 OR MORE 06/12/2018 80883-XMFZIPB NAIL, 6 OR MORE 11/27/2018 42469-NKVTBZI NAIL, 6 OR MORE 02/15/2019 83408-JUCSPPY NAIL, 6 OR MORE 05/21/2019 44706-VBKRTXG NAIL, 6 OR MORE 11/26/2019 62392-OTRHAAI NAIL, 6 OR MORE 03/17/2020 06100-ZALSAXM NAIL, 6 OR MORE 06/16/2020 67375-NVRUXXB NAIL, 6 OR MORE 09/22/2020 57367-CUWKHXF NAIL, 6 OR MORE 12/22/2020 60358-DYTYUPT NAIL, 6 OR MORE 04/09/2021 50816-CUOKLMK NAIL, 6 OR MORE 11/19/2021 69785-CPAZUYQ NAIL, 6 OR MORE 02/18/2022 74922-BCJKNBP NAIL, 6 OR MORE 05/06/2022 51816-EVZCEZX NAIL, 6 OR MORE 11/25/2022 59413-RFADJUD NAIL, 6 OR MORE 02/24/2023 84849-TDBCAJC NAIL, 6 OR MORE 05/26/2023 28214-KJNQZLH NAIL, 6 OR MORE 11/21/2023 96740-GYEVHDN NAIL, 6 OR MORE 02/20/2024 65860-EGPXOBQ NAIL, 6 OR MORE 06/04/2024 81597-Zjmkmjqf Plate 05/21/2019 40139-XWER SKIN LESIONS, OVER 4 05/21/20 64755-LTYC SKIN LESIONS, OVER 4 02/16/20 19 42993-REDF SKIN LESIONS, OVER 4 03/17/20 20 88602-CCQV SKIN LESIONS, OVER 4 11/26/19 20 76791-YTAQ SKIN LESIONS, OVER 4 04/09/20 73391-PWQM SKIN LESIONS, OVER 4 12/23/19 21 27179-SHTB SKIN LESIONS, OVER 4 09/22/19 21 75527-NCMO SKIN LESIONS, OVER 4 06/16/20 20 65492-JPWS SKIN LESIONS, OVER 4 02/20/20 24 44656-AKDA SKIN LESIONS, OVER 4 11/21/19 24 34612-BYEZ SKIN LESIONS, OVER 4 05/26/20 23 74884-XSPU SKIN LESIONS, OVER 4 02/25/20 23 46398-UZQX SKIN LESIONS, OVER 4 11/26/19 23 02197-JKBU SKIN LESIONS, OVER 4 05/06/20 22 50143-UDSP SKIN LESIONS, OVER 4 02/19/20 22 64703-HAYO SKIN LESIONS, OVER 4 11/20/19 22 45542-UMDN SKIN LESIONS, OVER 4 11/28/19 19 55192-BEHN SKIN LESIONS, OVER 4 06/12/20 18 45317-TVNO SKIN LESIONS, OVER 4 03/09/20 18 83147-EZKT SKIN LESIONS, OVER 4 11/11/19 18 58159-SSOE SKIN LESIONS, OVER 4 05/12/20 17 00780-AOGL SKIN LESIONS, OVER 4 11/23/19 17 49414-DCVO SKIN LESIONS, OVER 4 02/22/20 17 48068-LDNP SKIN LESIONS, OVER 4 05/24/20 16 03447-DBKO SKIN LESIONS, OVER 4 02/23/20 16 13906-LVNH SKIN LESIONS, OVER 4 11/12/19 15 65285-JYVR SKIN LESIONS, OVER 4 07/04/20 14 90005-BSYT SKIN LESIONS, OVER 4 04/08/20 14 88039-MHCN SKIN LESIONS, OVER 4 11/24/19 16 34420-ZFSN SKIN LESIONS, OVER 4 08/07/19 16 18516-KKMM SKIN LESIONS, OVER 4 02/11/20 15 03054-PLFJ SKIN LESIONS, OVER 4 05/19/20 15 83163-NDKC SKIN LESIONS, OVER 4 06/04/20 24 53240-XAOW SKIN LESIONS, 2 TO 4 01/28/20 14 Next Appt Details Provider Name:Rom Pollock , 01/03/2025 12:30:00 PM, [address] [place], [address], Insurance Providers Payer Name Payer Address Payer Phone Subscriber Number Group Number Insured Name Patient Relationship to Insured Coverage Start Date Coverage End Date [employer]vantage [address] [place] [address] [phone] [id number] Chris Avalos Self - patient is the [...] Hospitalization History Reason Date(Month/Year) [facility]- D jose /BP 200 CT scans taken overnight cause too much sun 09/2021 Hip replacement surgery 05/2015
--- NOTE | 2025-01-02 07:54 | CA_ITS ---
Transthoracic Echocardiogram Patient (Last, First, Middle): Chris Avalos H Gender: Male Date of : 1940 Age: 84 Procedure Date: 01/02/2025 Procedure Type: Transthoracic Echocardiogram Location: OP Height: 170.18 cm Weight: 102.51 kg BSA: 2.13 m2 Heart Rate: bpm BP: 138 / 68 mmHg Seaweed Harvester: SB Referring MD: Joseph Araujo MD Air Hammer Stripper: Joseph Araujo MD Symptoms: I20.8 - Other forms of angina pectoris Study Quality: Fair/contrast Conclusions: - The left ventricular systolic function is normal. The calculated ejection fraction is 64% by biplane method. - Evidence suggests grade II (moderate) diastolic dysfunction. - The left atrium is moderately dilated. - No obvious valvular pathology seen on this study. - Mild pulmonary hypertension is present. Findings Procedure Information Contrast agent, definity, is being given per protocol without apparent complications. Left Ventricle Normal left ventricular cavity size. There is mildly increased left ventricular wall thickness. The left ventricular systolic function is normal. The calculated ejection fraction is 64% by biplane method. Evidence suggests grade II (moderate) diastolic dysfunction. Right Ventricle Normal right ventricular cavity size and systolic function. Atria The left atrium is moderately dilated. The right atrium is mildly dilated. Aortic Valve There is a normal trileaflet aortic valve. There is mild calcification of the aortic valve. There is no aortic valve stenosis. Trace to mild aortic regurgitation. Mitral Valve The mitral valve appears normal. There is no mitral valve regurgitation. There is no mitral valve stenosis. Pulmonic Valve The pulmonic valve is likely normal. Tricuspid Valve There is mild tricuspid valve regurgitation. Mild pulmonary hypertension is present. Great Vessels The asc aorta is normal in size. Small plaque is seen in the sino tubular ridge. Venous The inferior vena cava is mildly dilated and collapses greater than 50% with inspiration. Pericardium/Pleural There is no evidence of pericardial effusion. Prior Study Comparison No significant change compared to prior study dated: 07/06/2023. Recommendations, Care & Conclusions No obvious valvular pathology seen on this study. Measurements 2D Linear Measurements IVSd: 1.23 0.6-0.9/0.6-1.0 cm LVIDd: 4.96 3.9-5.3/4.2-5.9 cm LVIDd Index: 2.33 2.4-3.2/2.2-3.1 cm/m2 LVIDs: 3.40 2.0-3.6 cm LVPWd: 1.10 0.7-1.1 cm LA Diam: 4.40 2.7-3.8/3.0-4.0 cm LAIDs Index: 2.07 1.5-2.3 cm/m2 LV Mass: 276.01 67-162/88-224 g LV Mass Index: 129.58 43-95/49-115 g/m2 LVOT Diam: 2.30 3.0+(-)1.3 cm 2D Systolic Function EF 4C: 67.50 >55% EF 2C: 59.80 >55% EF BiP: 63.80 >55% Mitral Valve MV Pk E: 1.14 MV PK A: 0.73 MV Decel Time: 204.00 E/A: 1.60 E'Lateral: 6.85 E'Medial: 5.77 E/E' Med: 19.80 E/E' Lat: 16.60 PHT: 60.00 MVA PHT: 3.67 Decel Adams: 5.57 Aortic Valve AoV Pk Emerson: 2.08 AoV Mn Emerson: 1.37 AoV VTI: 0.49 AoV Pk Grad: 17.00 Aov Mn Grad: 8.00 CRISTHIAN Cont.VTI: 2.29 LVOT LVOT Pk Emerson: 1.27 LVOT Mn Emerson: 0.79 LVOT VTI: 0.27 LVOT Pk Grad: 6.00 LVOT Mn Grad: 3.00 LVOT Diam: 2.30 LVOT Area: 4.15 Diastolic Function MV Pk E: 1.14 MV Pk A: 0.73 E/A: 1.60 E'Medial: 5.77 E/E' Med: 19.80 E' Laterial: 6.85 E/E' Lat: 16.60 Right Ventricle TAPSE (mm): 23.30 TVS' Emerson: 13.70 Tricuspid Valve TR Pk Emerson: 2.86 TR Pk Grad: 33.00 RA Press: 8.00 RVSP: 41.00 Great Vessels Aorta Sinus of Valsalva: 3.12 2.0-3.5 cm Ao Asc: 3.20 2.1-3.4 cm Updated in Other Vendor System with Status of Final Sky Lopez MD electronically signed on 01/05/2025 2:18:27 PM with status of Final
== END ==
LOC: HO.CARD 07:49
PROVIDERS: PCP Family Medicine; Visit Provider Internal Medicine Cardiovascular Disease
DX: I20.89 Other forms of angina pectoris (principal)
CPT/HCPCS: 93306; Q9957

== ENCOUNTER → 2025-01-02 07:54 | Outpatient (BNV) | payer MEDICARE, SELFPAY | PROVIDERS: PCP Family Medicine; Visit Provider Internal Medicine | DX: I70.0 Atherosclerosis of aorta (principal); I35.1 Nonrheumatic aortic (valve) insufficiency; I27.20 Pulmonary hypertension, unspecified | CPT/HCPCS: 93306 ==

== ENCOUNTER → 2025-01-30 14:02 | Outpatient (BNVA) | payer MEDICARE, SELFPAY | PROVIDERS: PCP Family Medicine; Visit Provider Surgery Vascular Surgery | DX: Z71.2 Person consulting for explanation of examination or test findings (principal); I73.9 Peripheral vascular disease, unspecified | CPT/HCPCS: 99212 ==

== ENCOUNTER → 2025-01-30 14:02 | Outpatient (AMB) | payer MEDICARE, SELFPAY ==
--- NOTE | 2025-01-30 14:05 | A.OFFVIS_ITS ---
Intake Visit Reasons: follow up s/p Arterial US 12/27/24 Intake Note: Patient presents for follow up arterial US performed on 12/27/24. Patient states he has bilateral leg pain. 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 He had originally presented to us on 11/14/2024. At that time he was being worked up for peripheral vascular disease and generalized weakness of his lower extremities. In the interim since his last visit he actually ended up in the hospital. Unclear exactly what happened but he was at [facility] and then subsequently transferred to [facility] ICU. It appears that he had some respiratory distress and generalized weakness. Was subsequently discharged and brought back into the hospital for what appears to be your sounds like hyperkalemia. He now presents to us for follow-up with arterial testing. 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 Mother No problems noted. Social History Alcohol intake: current Alcohol intake frequency: holidays/special occasions only Patient Tobacco Use Status: Former Tobacco user Years Smoked: 5 +/- Review of Systems Const All systems reviewed & are unremarkable except as noted in HPI and below Reports no additional complaints ENT Reports Normal hearing present Card Denies chest pain, Denies chest pain at rest, Denies chest pain with activity and Denies pedal edema Resp Denies cough GI Denies abdominal pain Musc Denies abnormal gait, Denies muscle cramps and Denies radiating pain into limb Skin/Breast Denies skin ulcer and Denies wounds Neuro Reports Normal hearing present and Denies abnormal gait Psych Reports no additional complaints Physical Exam Const General: cooperative, healthy appearing and comfortable Orientation/consciousness: oriented to person, oriented to place and oriented to time HEENT Head: Yes normal to inspection Neck Neck: Yes normal visual inspection Carotids: no bruits Chest Chest palpation & inspection: normal inspection of the chest Resp Effort & Inspection: normal respiratory effort and able to speak in complete sentences Auscultation: clear to auscultation bilaterally, no crackles, no rales, no rhonchi and no wheezes Cardio Other: Bilateral palpable dorsalis pedis pulses Rate: regular rate Rhythm: regular rhythm Heart sounds: S1 normal heart sound present and S2 normal heart sound present Bruits: no carotid bruits Peripheral pulses: Peripheral pulses 2+ throughout GI Inspection: Yes normal to inspection Skin Wounds: no wounds Hair: normal Neuro General: oriented to person, oriented to place and oriented to time Cranial nerves: Yes CN's II-XII intact bilaterally and Yes Normal hearing present Cognition (Neuro): normal cognition Motor exam (neuro): 5/5 motor strength present throughout Extrem Other: venous exam: No significant superficial varicosities or spider telangiectasias, minimal edema General: No clubbing, No cyanosis and No edema Psych Appearance: grossly normal Mental Status: mental status grossly normal Speech and movement: Normal speech and movement present Results Reviewed Results Reviewed: Noninvasive arterial testing dated 12/27/2024 demonstrates HIEU on the right of 1.27 and on the left of 1.2 written report and images were reviewed. Reasonably good waveforms all the way down the leg. Assessment & Plan Assessment & Plan (1) PAD (peripheral artery disease): Code(s): I73.9 - Peripheral vascular disease, unspecified Category: Medical Plan: In short he appears to be doing relatively well from a peripheral vascular standpoint. I do not suspect that arterial disease as the source of his issues at the current time. He will require continued medical management. He is being followed by our nephrology and cardiac teams. He may even benefit from a pulmonary evaluation as well. Stable from a vascular standpoint. He will follow up with us on an as-needed basis. Thank you for allowing us to assist in his care. Coding Level of Care Code Est Pt Level 4 (80375) Complex EM visit Add On G2211 Diagnoses PAD (peripheral artery disease) I73.9
--- OUTSIDE RECORDS SUMMARY | 2025-01-30 14:06 | XMS_ITS | Patient Health Record ---
Author Organization [facility] miguel Burgin Address [address] [place] [address] Care Team Providers Care Woods Rider Name Role Phone Makeda Goode MD Primary Care Provider Unavailab Rom Rose Unavailable [phone] Allergies No Known Allergies Results Component Value Reference Range Notes HEMOGLOBIN A1C (GLYCOHEMOGLO BIN) Reviewed date:06/04/2024 10:58:47 AM Interpretation: Performing Lab: Notes/Report: TOTAL HEMOGLOBIN (HGBA1C) 7.2 Reason For Referral No Information Medications Medication SIG (Take, Route, Frequency, Duration) Notes Start Date End Date Status Fenofibrate 48 MG 1 tablet Orally Once a day Active PreserVision AREDS 2 Active Vitamin D Active Vitamin B12 Active Loratadine 10 MG 1 tablet Orally Once a day 01/27/2014 Active Jardiance 10 MG 1 tablet Orally Once a day Active Indomethacin prn Not-Anuel ing Stool Softener Activ e Isosorbide Mononitrate ER 30 MG 1 tablet in the morning Orally Once a day Active Fish Oil Active Ciclopirox Active Clindamycin Phosphate Active Co Enzyme Q-10 Activ e Clear Eyes for Dry Eyes Not-Taking Clopidogrel Bisulfate 75 MG Orally Not-Taking Amitriptyline HCl 25 MG Orally Not-Taking Lyrica 50 MG Orally once in morning Not-Taking traMADol HCl 50 MG 1 tablet as needed Once a day Active Glucosamine Active hydroCHLOROthiazide 25 MG 1 tablet Oral Not-Taking Eliquis 5 MG as directed Orally daily Active Amoxicillin 500 MG 1 tablet Oral as needed for dental appts PRN-Dental Active Atorvastatin Calcium 40 MG 1 tablet Orally Active Aspirin 81 MG 1 tablet Orally Once a day 01/27/2014 Active amLODIPine Besylate 5 MG 1 tablet Orally Once a day; Duration: 30 days Active Omeprazole 40 MG 1 capsule Orally Once a day Active Multivitamins Orally 01/27/2014 Activ e metFORMIN HCl Not-Ta guera Lyrica 100 MG 1 capsule Orally once at night Active Nystop 115771 UNIT/GM External Not-Taking Extra Depth Orthopedic Shoes (1 Pair) with Customized Heat Molded Multidensity Innersoles (3 Pair) as directed Dx: NIDDM/Polyneuropath y (E11.42), Hammertoe Foot Deformity (M20.41,M20.42), Preulcerative Skin Lesion(s) (L85.1 11/21/2023 Active Tylenol 1000mg bid Active Sotalol HCl 80 MG 1 tablet Oral every 12 hrs Not-Taking Immunizations Vaccine Route Administration Date Status Comme nts COVID-19 Pfizer BioNTech Vaccine Unknown 07/08/2021 Administered 1st 08/18/20 2nd 09/08/20 Influenza Unknown 11/24/2015 Administered Influenza Unknown 05/24/2016 Pending Influenza Unknown 05/31/2017 Administered Influenza Unknown 05/28/2021 Administered Influenza Unknown 06/30/2022 Administered Influenza Unknown 04/30/2024 Administered Social History Tobacco Use: Social History Observation Description Date Details (start date - stop date) Never Smoker NA - NA Tobacco use other than smoking: Question Answer Notes Are you an other tobacco user? No Tobacco Control (Standard) Question Answer Notes Tobacco use: Nonsmoker Additional Findings: Tobacco non-user Current no nsmoker AUDIT-C (Standard) Question Answer Notes Did you have a drink contain ing alcohol in the past year? Yes How often did you have a dri nk containing alcohol in the past year? 2 to 3 times a week (3 points) How many drinks did you have on a typical day when you were drinking in the past year? 1 or 2 drinks (0 point) How often did you have six o r more drinks on one occasion in the past year? Never (0 point) Points 3 Interpretation Negative Problems Problem Type SNOMED Code ICD Code Onset Dates Problem Status W/U Status Risk Notes Problem Acquired hammer toe of right foot (987855373448 9105) Other hammer toe(s) (acquired), right foot (M20.41) Active confirmed Problem Acquired hammer toe of left foot (852551130693 9103) Other hammer toe(s) (acquired), left foot (M20.42) Active confirmed Problem Type 2 diabetes mellitus with diabetic polyneuropathy (E11.42) Active confirmed Vital Signs Blood pressure diastolic 78 mm Hg 01/03/2025 Height 5 ft 8 in in 01/03/2025 Blood pressure systolic 132 mm Hg 01/03/2025 Weight 226 lbs 01/03/2025 BMI 34.36 kg/m2 01/03/2025 Procedures Procedure Date Ordered Date Performed Result Body Sit e 90660-BCLOGCD NAIL, 6 OR MORE 02/20/2024 N/A 51014-GBPX SKIN LESIONS, OVER 4 02/20/2024 N/A 50754-ICBAFSI NAIL, 6 OR MORE 06/04/2024 N/A 31288-FOVV SKIN LESIONS, OVER 4 06/04/2024 N/A 29596-LEBVSWI NAIL, 6 OR MORE 01/03/2025 N/A 05147-GJQC SKIN LESIONS, OVER 4 01/03/2025 N/A Encounters Encounter Location Date Provider Diagnosis [address] [address] 02/20/2024 Rom Pollock Type 2 diabetes mellitus with diabetic polyneuropathy E11.42 and Tinea unguium B35.[address] [address] 06/04/2024 Romsheryl Pollock Type 2 diabetes mellitus with diabetic polyneuropathy E11.42 and Tinea unguium B35.[address] [address] 01/03/2025 Rom Maris Type 2 diabetes mellitus with diabetic polyneuropathy E11.42 ; Onychomycosis B35.1 ; Other hammer toe(s) (acquired), right foot M20.41 and Other hammer toe(s) (acquired), left foot M20.[address] [address] 10/11/2024 Rom Pollock Assessments Encounter Date Diagnosis (ICD Code) Assessment Notes Treatment Notes Treatment Clinical Notes Section Notes 02/20/2024 Type 2 diabetes mellitus with diabetic polyneuropathy (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.42) 02/20/2024 Tinea unguium (ICD-10 - B35.1) 06/04/2024 Type 2 diabetes mellitus with diabetic polyneuropathy (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.42) 06/04/2024 Tinea unguium (ICD-10 - B35.1) 01/03/2025 Type 2 diabetes mellitus with diabetic polyneuropathy (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.42) 01/03/2025 Onychomycosis (ICD-10 - B35.1) 01/03/2025 Other hammer toe(s) (acquired), right foot (ICD-10 - M20.41) Patient Educated with: DIABETIC FOOT CARE INSTRUCTIONS. pdf (DIABETIC FOOT CARE INSTRUCTIONS. pdf) 01/03/2025 Other hammer toe(s) (acquired), left foot (ICD-10 - M20.42) Plan Of Treatment Pending Test Test Name Order Date Hemoglobin A1c 02/10/2015 Hemoglobin A1c 05/19/2015 93835-PMRORPY NAIL, 6 OR MORE 02/10/2015 22301-ZQMQIHO NAIL, 6 OR MORE 05/19/2015 90799-PLNKFMU NAIL, 6 OR MORE 08/07/2015 27794-IVQOTBV NAIL, 6 OR MORE 11/24/2015 69091-ETIMFLB NAIL, 6 OR MORE 01/27/2014 09148-KLOSRFI NAIL, 6 OR MORE 04/08/2014 48177-ERJZMWG NAIL, 6 OR MORE 07/04/2014 37508-LWIVPIG NAIL, 6 OR MORE 11/11/2014 32641-PAKAOVF NAIL, 6 OR MORE 02/23/2016 35853-TCEXYBI NAIL, 6 OR MORE 05/24/2016 24293-CQQPWJU NAIL, 6 OR MORE 11/22/2016 47017-JGKUFER NAIL, 6 OR MORE 02/21/2017 65960-MSJZCMM NAIL, 6 OR MORE 05/12/2017 00869-AJCAXEX NAIL, 6 OR MORE 11/10/2017 48193-MDMZTSJ NAIL, 6 OR MORE 03/09/2018 91504-RUFYUXU NAIL, 6 OR MORE 06/12/2018 45175-MTWGZFM NAIL, 6 OR MORE 11/27/2018 48365-EUJLJJC NAIL, 6 OR MORE 02/15/2019 26339-MJEOQYT NAIL, 6 OR MORE 05/21/2019 11810-NSGFHHU NAIL, 6 OR MORE 11/26/2019 90158-USMPYYV NAIL, 6 OR MORE 03/17/2020 41184-TTBHLET NAIL, 6 OR MORE 06/16/2020 88464-SGCKNYJ NAIL, 6 OR MORE 09/22/2020 81803-VVGZVCU NAIL, 6 OR MORE 12/22/2020 39270-MDKJDJC NAIL, 6 OR MORE 04/09/2021 03450-VPNINOH NAIL, 6 OR MORE 11/19/2021 75351-RXSEWQF NAIL, 6 OR MORE 02/18/2022 92708-EOFDWDB NAIL, 6 OR MORE 05/06/2022 64500-GWBNAMM NAIL, 6 OR MORE 11/25/2022 51035-KXZJPWE NAIL, 6 OR MORE 02/24/2023 18615-KLBFVND NAIL, 6 OR MORE 05/26/2023 79513-CZJUNAT NAIL, 6 OR MORE 11/21/2023 36707-IRWIMUX NAIL, 6 OR MORE 02/20/2024 73813-SUHAHPA NAIL, 6 OR MORE 06/04/2024 35317-KGFGNKZ NAIL, 6 OR MORE 01/03/2025 04376-Rwpxzjtj Plate 05/21/2019 82970-LRBR SKIN LESIONS, OVER 4 05/21/20 47468-FUGE SKIN LESIONS, OVER 4 02/16/20 84803-OIUD SKIN LESIONS, OVER 4 03/17/20 68325-RLAC SKIN LESIONS, OVER 4 11/26/19 48605-UXRC SKIN LESIONS, OVER 4 04/09/20 34150-NIKI SKIN LESIONS, OVER 4 12/23/19 00879-PFAF SKIN LESIONS, OVER 4 09/22/19 07706-ZHVQ SKIN LESIONS, OVER 4 06/16/20 20 47471-GTFB SKIN LESIONS, OVER 4 02/20/20 24 02341-UTPR SKIN LESIONS, OVER 4 11/21/19 84117-LHAF SKIN LESIONS, OVER 4 05/26/20 86253-XCAN SKIN LESIONS, OVER 4 02/25/20 76475-FNYT SKIN LESIONS, OVER 4 11/26/19 05450-WUXP SKIN LESIONS, OVER 4 05/06/20 02685-KJYU SKIN LESIONS, OVER 4 02/19/20 42536-QFSQ SKIN LESIONS, OVER 4 11/20/19 22 83233-KEYE SKIN LESIONS, OVER 4 11/28/19 19 39082-RJZM SKIN LESIONS, OVER 4 06/12/20 18 43973-PZNE SKIN LESIONS, OVER 4 03/09/20 18 93846-BBBI SKIN LESIONS, OVER 4 11/11/19 18 53386-LVXO SKIN LESIONS, OVER 4 05/12/20 17 54940-DVNV SKIN LESIONS, OVER 4 11/23/19 17 30866-XBAU SKIN LESIONS, OVER 4 02/22/20 17 90847-IPUN SKIN LESIONS, OVER 4 05/24/20 16 36891-TMON SKIN LESIONS, OVER 4 02/23/20 16 02339-MGCO SKIN LESIONS, OVER 4 11/12/19 15 87237-HEEN SKIN LESIONS, OVER 4 07/04/20 14 53693-IWRL SKIN LESIONS, OVER 4 04/08/20 14 79161-SINF SKIN LESIONS, OVER 4 11/24/19 16 63631-IAOF SKIN LESIONS, OVER 4 08/07/19 16 63165-FPZR SKIN LESIONS, OVER 4 02/11/20 15 94805-FQMV SKIN LESIONS, OVER 4 05/19/20 15 44648-OWCQ SKIN LESIONS, OVER 4 01/04/20 25 60619-ZOQJ SKIN LESIONS, OVER 4 06/04/20 24 57136-HJFD SKIN LESIONS, 2 TO 4 01/28/20 14 Next Appt Details Provider Name:Rom Pollock , 04/08/2025 03:30:00 PM, [address] [place], [address], Insurance Providers Payer Name Payer Address Payer Phone Subscriber Number Group Number Insured Name Patient Relationship to Insured Coverage Start Date Coverage End Date [employer]age [facility] [address] [place] [address] [phone] [id number] Chris Avalos Self - patient is the [...] Replacement left 04/2022 Hospitalization History Reason Date(Month/Year) [facility]- [facility] jose /BP 200 CT scans taken overnight cause too much sun 09/2021 Hip replacement surgery 05/2015
--- OUTSIDE RECORDS SUMMARY | 2025-01-30 14:06 | XMS_ITS | Patient Health Record ---
Author Organization [facility] Address [address] [place] [address] Care Team Providers Care Residential Mortgage Underwriter Name Role Phone Bashir Severino MD Primary Care Provider Unavailab Jayme Guzman Jr Unavailable [phone] Allergies No Known Allergies Reason For Referral [...] Problem Status W/U Status Risk Notes Problem 736233551 Colon cancer screening (Z12.11) Active confirmed Problem 146270625 Gastro-esophagea l reflux disease with esophagitis (K21.0) Active confirmed Problem 247976962 Osorio's esophagus without dysplasia (K22.70) Active confirmed Problem 48237924 Rectal urgency (R15.2) Active confirmed Problem 512225149 Throat pain (R07.0) Active confirmed Problem 84016048 Diarrhea, unspecified type (R19.7) Active confirmed Problem Gastro-esophagea l reflux disease with esophagitis, with bleeding (K21.01) Active confirmed Problem Gastroesophageal reflux disease with esophagitis (disorder) (814288709) Gastroesophageal reflux disease with esophagitis, unspecified whether hemorrhage (K21.00) Active confirmed Vital Signs Temperature 98.6 degrees Fahrenheit 06/24/2024 Blood pressure diastolic 00 mm Hg 06/24/2024 Height 67 in 06/24/2024 Blood pressure systolic 000 mm Hg 06/24/2024 Weight 230 lbs 06/24/2024 BMI 36.02 kg/m2 06/24/2024 Encounters Encounter Location Date Provider [facility] [address] [place] [address] 06/24/2024 Jayme Soni Jr Osorio's esophagus without [...] Provider Name:Jayme barakat , 06/23/2025 09:00:00 AM, [address] [place] [address], [address], [place], [address], Insurance Providers Payer Name Payer Address Payer Phone Subscriber Number Group Number Insured Name Patient Relationship to Insured Coverage Start Date Coverage End Date [facility] [address] [place] [address] [id number] TERRI HERMOSILLO Self - patient is the [...]
== END ==
LOC: HO.HVS 14:03
PROVIDERS: PCP Family Medicine; Visit Provider Surgery Vascular Surgery
DX: I73.9 Peripheral vascular disease, unspecified (principal)
CPT/HCPCS: 99214; G2211

== ENCOUNTER 2025-03-24 15:28 | Outpatient (AMB) | payer MEDICARE, SELFPAY ==
--- OUTSIDE RECORDS SUMMARY | 2024-09-20 10:50 | XMS_ITS | Continuity of Care Document ---
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 Name Role Phone Karin CORTEZ, Jalil Unavailable [...] Comments Panel Description: Not Available Final Image [facility] Map Single Exam Report- 1 Advance Directives Directive Yes / No Effective Date File Name No Information Encounters Encounter Description Practice Location Reason(s) For Visit Diagnoses Date Provider Providers Copied on Encounter E&M est moderate complexity [facility], [address] [place], [place], [id number] , [place] tel: [phone] [facility] WAMD (chief complaint) Exudative age-related macular degeneration, left eye, with active choroidal neovascularizationExu dative age-related macular degeneration, right eye, with active choroidal neovascularization 5 Karin rod. [address] [place], [place], [id number] , [place]. tel: [phone] Referring Provider: Clark Lacey, [address] [place], [address]. tel:[phone] [facility], [address], [place], [place], [id number] , [place] tel: [phone] [facility] WAMD (chief complaint) Exudative age-related macular degeneration, left eye, with active choroidal neovascularization Sep-0 4 Abhijit Rodas. [address] [place], [address], [place]. tel:[phone] Referring Provider: Clark Lacey, [address] [place], [address]. tel:[phone] E&M est moderate complexity [facility], [address], [place], [place], [id number] , [place] tel:[phone] [facility] [place] WAMD (chief complaint) Exudative age-related macular degeneration, right eye, with active choroidal neovascularizationExu dative age-related macular degeneration, left eye, with active choroidal neovascularization 4 Abhijit Rodas. [address] [place], [address], [place]. tel: [phone] Referring Provider: Clark Lacey, [address] [place], [address]. tel:[phone] [facility], [address], [place], [place], [id number] , [place] tel: [phone] [facility] [place] WAMD (chief complaint) Exudative age-related macular degeneration, right eye, with active choroidal neovascularizationVit reous degeneration, bilateralNonexudative age-related macular degeneration, left eye, intermediate dry stage Sep- 3 Abhijit Rodas. [address] [place], [address], [place]. tel: [phone] Referring Provider: Clark Lacey, [address] [place], [address]. tel:[phone] [facility], [address], [place], [place], [id number] , [place] tel: [phone] [facility] [place] WAMD w/ SRH (chief complaint) Exudative age-related macular degeneration, right eye, with active choroidal neovascularization 3 Abhijit Rodas. [address] [place] [address].[place], [address], [place]. tel: [phone] Referring Provider: Clark Lacey, [address] [place] [address]., [place], [address]. tel:[phone] E&M New moderate complexity [facility], [address] [place] [address], [id number] , tel: [phone] [facility] [place] WAMD (chief complaint) Exudative age-related macular degeneration, right eye, with active choroidal neovascularizationNon exudative age-related macular degeneration, left eye, intermediate dry stageVitreous degeneration, bilateral [address] [place] [address]., [place], [address], . tel: [phone] Referring Provider: Clark Lacey, [address] [place] [address]., [place], [address]. tel:[phone] Family History Family Member Type Diagnosis Age At Onset No Information Immunizations Vaccine Date Status Comments Flu (split) (3 yrs or older) administered Source: Other Provider Flu (split) (3 yrs or older) administered Source: Other Provider Pneumo (2 yrs or older)(PPV) administered Source: Other Provider Flu (split) (3 yrs or older) administered Source: Other Provider Payers Payer name Insurance type Covered libertarian ID [facility] [place] 16 [id number] Social History Type Description Quantity Date Captured [...] x 5, pt was last seen up [place] and found active SRH and SRF due to CF vision pt and Dr declined tx at that time last injection was 11/20/20. Pt came down here and saw Dr. Soriano and was referred to us due to active edema and heme in OD. Records are scanned in. Pt has not noticed a change in his VA OD at all, pt went to [facility] to get new glasses mainly for OS [...]
--- OUTSIDE RECORDS SUMMARY | 2024-11-19 05:00 | XMS_ITS ---
Author Organization [facility] Address [address] [place] [address] Care Team Providers Care Customer Service Trainer Name Role Phone Russel CORTEZ, Makeda Primary Care Provider Unavailab Rom Rose Unavailable [phone] Encounters Encounter Location Date Provider Diagnosis [address] [address] 11/19/2024 Rom Pollock Plan Of Treatment Next Appt Details Provider Name:Rom Pollock , 04/08/2025 03:30:00 PM, [address] [place], [address], Progress Notes * Chris AVALOS HDOB: 1 (85 yo M)Acc No.[id number]:11/19/2024 Progress Note Patient: Chris NEWSOME Provider: Unique Pollock DPM :1940 A ge:84 Y S ex:Male Date:11/19/2024 Address:[address] [place] [address] Pcp:Makeda Goode MD Subjective: * Chief Complaints: * * Medical History: Objective: * Vitals: Assessment: Plan: * Treatment: * Images: * The named appointment provid er may or may not be the originator of this progress note, and it is not deemed complete until electronically signed by the appointment provider. Sign off status: Pending * Provider: Unique Pollock DPM Date: 0 11/19/2024 Generated for Santiago castillo/Jerel on: 0 03/24/2025 05:05 PM EDT
--- OUTSIDE RECORDS SUMMARY | 2025-03-21 23:59 | XMS_ITS | Continuity of Care Document ---
Author Organization [facility] Address [address] [place] [address]- Care Team Providers Care Talent Specialist Name Role Phone Andreas Ricketts MD Primary Care Physician [id number] Date(s): 02/19/25 - 03/21/25 [facility] [address] [place] [address]- Encounter Type: Triage Allergies, Adverse Reactions, Alerts Substance Criticality Severity Reaction Reaction Severity Status cyclobenzaprine Acti ve gabapentin Active Immunizations Given and Recorded Vaccine Date Status Refusal Reason SARS-CoV-2(COVID-19)mRNA-LNP vac(rhf420) 06/07/24 Recorded SARS-CoV-2(COVID-19)mRNA-LNP vac([id number]) 07/04/23 Recorded influenza virus vaccine, inactivated 05/24/24 [...] influenza virus vaccine, inactivated 07/13/16 Mohan rded [id number] 12y+ bivalent booster vax 07/12/22 Recorded SARS-CoV-2 mRNA ([id number]) vax 12/13/21 Recorded SARS-CoV-2 (COVID-19) mRNA BNT-162b2 vac 05/20/21 Recorded SARS-CoV-2 (COVID-19) mRNA BNT-162b2 vac 09/25/20 Recorded SARS-CoV-2 (COVID-19) mRNA BNT-162b2 vac 09/04/20 Recorded pneumococcal 23-valent vaccine 07/13/16 Recorded pneumococcal 13-valent vaccine 07/20/15 Recorded Medications amLODIPine 5 mg oral tablet 1 tablet = 5 mg, By Mouth, Daily at bedtime, # 90 tablet, 0 Refills, Maintenance, 02/07/25 10:34:00 AM EDT, Tablet, [id number], Partial fill upon patient request if the prescriptionis for a schedule II opioid drug., 173, cm, 02/06/25 13:46:00 EDT, Height, 99.1, kg, 01/24/25 7:07:00 EDT, Dry Weight Start Date: 02/07/25 Status: Ordered Quantity: 90.0 Unit: tablet Repeat number: 1 apixaban 2.5 mg oral tablet 1 tablet = 2.5 mg, By Mouth, 2 times a day, # 60 tablet, 0 Refills, Maintenance, 01/16/25 2:16:00 PMEDT, Tablet, [id number], Partial fill upon patient request if the prescription is for a schedule II opioid drug., 177, cm, 01/16/25 14:14:00 EDT, Height, 101.7, kg, 01/12/25 1:22:00 EDT, Dry Weight Start Date: 01/16/25 Stop Date: 02/15/25 Status: Ordered Quantity: 60.0 Unit: tablet Repeat number: 1 Aspirin = 81 mg, By Mouth, Daily, 0 Refills, Maintenance, 06/19/15 2:29:04 AM EST Start Date: 06/19/15 Status: Ordered Repeat number: 1 atorvastatin 40 mg oral tablet 1 tablet = 40 mg, By Mouth, Daily, # 90 tablet, 3 Refills, Maintenance, 12/20/24 10:20:00 AM EDT, [facility], Partial fill upon patient request if the prescription is for a scheduleII opioid drug., 173, cm, 12/20/24 10:01:00 EDT, Height Start Date: 12/20/24 Stop Date: 12/15/25 Status: Ordered Quantity: 90.0 Unit: tablet Repeat number: 4 fenofibrate 48 mg oral tablet 1 tablet = 48 mg, By Mouth, Daily, # 90 tablet, 3 Refills, Maintenance, 11/27/24 11:31:00 AM EDT, Tablet, [facility], Partial fill upon patient request if the prescription is for a schedule II opioid drug., 173, cm, 11/27/24 11:17:00 EDT, Height Start Date: 11/27/24 Stop Date: 11/22/25 Status: Ordered Quantity: 90.0 Unit: tablet Repeat number: 4 freestyle ajith 3 plus sensors freestyle ajith 3 plus sensors, See Instructions, # 2 each, Refills 2, Tot. Refills 2, Maintenance,Use freestyle ajith 3 plus sensors to monitor blood sugar regularly due to uncontrolled DM with multiple episodes of hypoglycemia., 02/06/25 2:29:00 PM EDT, Supply, 173, cm, 02/06/25 13:46:00 EDT, Height, 99.1, kg, 01/24/25 7:07:00 EDT, Dry Weight Start Date: 02/06/25 Status: Ordered Quantity: 2.0 Unit: each Repeat number: 3 Freestyle Lite Test Strips See Instructions, # 200 each, Refills 0, Tot. Refills 0, Maintenance, use twice daily as directed for Type 2 Diabetes Mellitus, 01/24/25 10:21:00 AM EDT, Supply, 173, cm, 01/24/25 7:07:00 EDT, Height,99.1, kg, 01/24/25 7:07:00 EDT, Dry Weight Start Date: 01/24/25 Stop Date: 02/23/25 Status: Ordered Quantity: 200.0 Unit: each Repeat number: 1 isosorbide mononitrate 30 mg oral tablet, extended release 30 mg, 1, tablet, By Mouth, Daily in AM, # 90 tablet, Refills 1, Tot. Refills 1, Maintenance, 11/27/24 11:40:00 AM EDT, Route to Pharmacy Electronically, [id number], Partial fill upon patient request if the prescription is for a schedule II opioid drug., 173, cm, 11/27/24 11:17:00EDT, Height Start Date: 11/27/24 Stop Date: 05/26/25 Status: Ordered Quantity: 90.0 Unit: tablet Repeat number: 2 Jardiance 10 mg oral tablet 1 tablet = 10 mg, By Mouth, Daily in AM, 0 Refills, Maintenance, 11/19/24 8:28:00 AM EDT, Partial fill upon patient request if the prescription is for a schedule II opioid drug. Start Date: 11/19/24 Status: Ordered Repeat number: 1 loratadine 10 mg oral tablet 10 mg, 1, tablet, By Mouth, Daily, # 30 tablet, Refills 0, Maintenance, 05/16/17 3:10:33 PM EDT Start Date: 05/16/17 Status: Ordered Quantity: 30.0 Unit: tablet Repeat number: 1 Lyrica 100 mg oral capsule 1 capsule = 100 mg, By Mouth, Daily at bedtime, # 90 capsule, 1 Refills, Maintenance, 11/27/24 1:24:00 PM EDT, Capsule, [facility], Partial fill upon patient request if the prescription is for a schedule II opioid drug., 173, cm, 11/27/24 12:41:00 EDT, Height Start Date: 11/27/24 Stop Date: 05/26/25 Status: Ordered Quantity: 90.0 Unit: capsule Repeat number: 2 nitroglycerin 0.4 mg sublingual tablet 1 tablet = 0.4 mg, Sublingual, Every 5 minutes, PRN Pain , Moderate, # 100 tablet, 0 Refills, Maintenance, 11/27/24 11:30:00 AM EDT, Tablet, [facility], Partial fill upon patient request if the prescription is for a schedule II opioid drug., 173, cm, 11/27/24 11:17:00 EDT, Height Start Date: 11/27/24 Stop Date: 12/27/24 Status: Ordered Quantity: 100.0 Unit: tablet Repeat number: 1 Omeprazole = 20 mg, By Mouth, Daily in AM, 0 Refills, Maintenance, 01/11/25 6:29:00 AM EDT, Partial fill upon patient request if the prescription is for a schedule II opioid drug. Start Date: 01/11/25 Status: Ordered Repeat number: 1 sotalol 80 mg oral tablet 80 mg, 1, tablet, By Mouth, Daily, # 90 tablet, Refills 1, Tot. Refills 1, Maintenance, 11/27/24 11:27:00 AM EDT, Route to Pharmacy Electronically, [id number], 173, cm, 11/27/24 11:17:00 EDT, Height Start Date: 11/27/24 Stop Date: 05/26/25 Status: Ordered Quantity: 90.0 Unit: tablet Repeat number: 2 Problem List Condition Confirmation Course Effective Dates Status Health Status Informant NSTEMI (non-ST elevated myocardial infarction) Confirmed Active Ataxic gait Confirmed Active Atrial fibrillation Confirmed Active Hypertension Confirmed Active Chronic kidney disease (CKD), stage IV (severe) Confirmed Active Macular degeneration of both eyes Confirmed Active Leg edema Confirmed Active Essential tremor Confirmed Active Acid reflux disease Confirmed Active Hyperlipidemia Confirmed Active Current use of buttermaker anticoagulation Confirmed Active Frequency of urination and polyuria Confirmed Active Diabetic neuropathy Confirmed Active Obese class I Confirmed Active JOHANNY (obstructive sleep apnea) Confirmed Active Paroxysmal atrial fibrillation Confirmed Active Polyneuropathy due to type 2 diabetes mellitus Confirmed Active Pure hyperglyceridemia Confirmed Active Type 2 diabetes mellitus Confirmed Active Social History Social History Type Response Tobacco Other: Former smoker . Sex Sex Representation Male (finding) Patient Care team information Care Team Personnel Name: Kristi Walter RN Position: [facility] RN Member Role: Primary Care Nurse Name: Andreas Ricketts MD Position: [facility] Physician - Primary Care Member Role: PCP Address: [address] [place] [address] - Telecom: Name: Kaila Noyola RN Position: [facility] SN RN Member Role: Primary Care Nurse Name: Abbey Medina RN Position: [facility] SN RN Member Role: Primary Care Nurse Name: Elmira Naqvi RN Position: [facility] RN Member Role: Primary Care Nurse Name: Jermaine Delgadillo RN Position: [facility] RN Member Role: Primary Care Nurse Name: Joseph Araujo MD Position: [facility] Cardiology MD Member Role: Lifetime Consulting Physician Address: [address] [place] [address] [facility] [place], [place] - Telecom: Name: [place] Antonio LPN Position: S RN Member Role: Primary Care Nurse Name: Gene Marsh RN Position: [facility] RN Member Role: Primary Care Nurse Name: Belen Beauchamp RN Position: S RN Member Role: Primary Care Nurse Name: Shona Sanchez RN Position: S RN Member Role: Primary Care Nurse Name: Beena Boucher RN Position: S RN Member Role: Primary Care Nurse Name: Jayshree Perez RN Position: S RN Member Role: Primary Care Nurse Care Team Related Persons Name: CHARLY HERMOSILLO Insurance Providers Guarantor name: [facility] Information #: 1 Payer: [employer] H[employer] Payer Identifier: EDIL Member Number: [id number] Group Number: [id number] Subscriber Identifier: [id number] Relationship to Subscriber: self Coverage Type: Medicare HMO Coverage Verification Date: Telecom: EDIL Address:
--- NOTE | 2025-03-24 15:29 | HO.NEPHOV_ITS ---
Vital Signs 03/24/25 15:31 Height 5 ft 8 in Weight 223 lb 6 oz BMI 34.0 BP 124/60 Blood Pressure Location Lt brachial Position Sitting Pulse 56 Pulse Source Pulse Oximeter Pulse Oximetry (%) 95 Oxygen Delivery Method Room Air Intake Visit Reasons: 4 MO FU-Voicemail Full Geology Professor Required: No Accompanied by: Spouse Allergies No Known Allergies Allergy (Verified 03/24/25 15:31) HPI Comments Details: Richard was seen was seen in follow up for worsening renal function. He is 85 years of age with Diabetes for a long time. His blood sugar is better controlled. He has been started on SGLT2 i . He has CAD as well as hypertension. He carried a diagnosis of diabetic nephropathy. He denied any new bone or back pain. His BP has been well controlled. He denies taking excess NSAID's. He denied any nephrotic range proteinuria or cardiomyopathy. He denies any epistaxis, photo sensitivity, hematuria, sinusitis, hemoptysis, new skin rashes or joint swelling. His recent serum creatinine is marginally better. He has been started on Elquis [facility] Medical History JOHANNY (obstructive sleep apnea) Other fatigue Other idiopathic peripheral autonomic neuropathy Essential (primary) hypertension Gastro-esophageal reflux disease without esophagitis Intrinsic (allergic) eczema Pruritus, unspecified Benign prostatic hyperplasia without lower urinary tract symptoms Type 2 diabetes mellitus with diabetic nephropathy Venous insufficiency (chronic) (peripheral) Chronic kidney disease, stage 3a Atherosclerotic heart disease of [place] coronary artery without angina pectoris Type 2 diabetes mellitus with diabetic polyneuropathy Obstructive sleep apnea (adult) (pediatric) Impacted cerumen of both ears Essential tremor Ventricular premature depolarization Pure hyperglyceridemia Pure hypercholesterolemia, unspecified Pain in right knee Hyperkalemia Acute metabolic acidosis Ataxic gait Hypertension PAF (paroxysmal atrial fibrillation) Stable angina Surgical History Hx of cholecystectomy History of cardiac cath History of total right knee replacement History of hip surgery Family History Father No problems noted. Mother No problems noted. Social History Alcohol intake: current Alcohol intake frequency: holidays/special occasions only Patient Tobacco Use Status: Former Tobacco user Years Smoked: 5 +/- Review of Systems Const All systems reviewed & are unremarkable except as noted in HPI and below Physical Exam Vital Signs: Last Vital Signs Pulse 56 03/24/25 15:31 BP 124/60 03/24/25 15:31 Pulse Ox 95 03/24/25 15:31 Oxygen Delivery Method Room Air 03/24/25 15:31 BMI result Body Mass Index 34.0 Const General: comfortable and no acute distress Orientation/consciousness: patient oriented x3 HEENT Head: Yes normocephalic Mouth: Normal oral and palatal mucosa present Eyes EOM: EOMs intact bilaterally Neck Neck: Yes supple Resp Auscultation: clear to auscultation bilaterally Cardio Jugular venous distension: no JVD Rate: regular rate GI Palpation (GI): Soft to palpation Auscultation: normal bowel sounds General: Yes no CVA tenderness Back/Spine/Pelvis Back: no CVA tenderness Skin General skin exam: no rashes or lesions noted Neuro General: patient oriented x3 and moves all extremities Extrem General: Yes no pedal edema Results Reviewed Nephrology Results: Renal US 07/09/24 Assessment & Plan Assessment & Plan (1) Hypertension: Code(s): I10 - Essential (primary) hypertension Category: Medical Qualifiers: Hypertension type: primary hypertension Qualified Code(s): I10 - Essential (primary) hypertension (2) 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 He is not on ACEI/ARB. He does not take excess NSAID's. He can continue on Jardiance . I started him on PO NaHCO3 650 mg daily. He needs to loose weight, keep his BS better controlled and keep his BP at goal. He needs to avoid NSAID's and maintain good hydration. All these have been explained in detail. Answered all his questions. F/U given Orders: Orders Blood Urea Nitrogen 3 Months E11.22 - Type 2 diabetes mellitus with diabetic chronic kidney disease, I10 - Essential (primary) hypertension, N18.32 - Chronic kidney disease, stage 3b Creatinine 3 Months E11.22 - Type 2 diabetes mellitus with diabetic chronic kidney disease, I10 - Essential (primary) hypertension, N18.32 - Chronic kidney disease, stage 3b Electrolytes 3 Months E11.22 - Type 2 diabetes mellitus with diabetic chronic kidney disease, I10 - Essential (primary) hypertension, N18.32 - Chronic kidney disease, stage 3b Medications: New sodium bicarbonate 650 mg PO DAILY 90 tabs 3RF Changed From empagliflozin (Jardiance) 10 mg PO DAILY 90 days 90 tabs 3RF To empagliflozin 25 mg PO DAILY 90 tabs 3RF 90 days Coding Level of Care Code Est Pt Level 4 (48073) Diagnoses Primary hypertension I10 Hypertension type: primary hypertension 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
[2025-03-24 15:31] VITALS: BP 124/60; PULSE 56; O2SAT 95; BMI 34.0
--- OUTSIDE RECORDS SUMMARY | 2025-03-24 17:05 | XMS_ITS | Patient Health Record ---
Author Organization [facility] Address [address] [place] [address] Care Team Providers Care Measurement Operator Name Role Phone Maycol (RETIRED) Bashir CORTEZ Primary Care Provider Unavailable Jayme Soni Jr Unavailable [phone] Allergies No Known Allergies Reason For Referral No Information Medications Medication SIG (Take, Route, Frequency, Duration) Notes Start Date End Date Status Co Q 10 100 MG as directed Orally Active Indomethacin 25 MG 1 capsule with food or milk Orally prn Active Eye Health Formula 1 1 PO QD Active Apixaban 5 MG 1 Orally BID Act sehila Aspirin 81 81 MG 1 tablet Orally [...] Problem Status W/U Status Risk Notes Problem 704089699 Colon cancer screening (Z12.11) Active confirmed Problem 047539986 Gastro-esophagea l reflux disease with esophagitis (K21.0) Active confirmed Problem 362287386 Osorio's esophagus without dysplasia (K22.70) Active confirmed Problem 75437440 Rectal urgency (R15.2) Active confirmed Problem 396142071 Throat pain (R07.0) Active confirmed Problem 70129958 Diarrhea, unspecified type (R19.7) Active confirmed Problem Gastro-esophagea l reflux disease with esophagitis, with bleeding (K21.01) Active confirmed Problem Gastroesophageal reflux disease with esophagitis (disorder) (600974940) Gastroesophageal reflux disease with esophagitis, unspecified whether hemorrhage (K21.00) Active confirmed Vital Signs Temperature 98.6 degrees Fahrenheit 06/24/2024 Blood pressure diastolic 00 mm Hg 06/24/2024 Height 67 in 06/24/2024 Blood pressure systolic 000 mm Hg 06/24/2024 Weight 230 lbs 06/24/2024 BMI 36.02 kg/m2 06/24/2024 Encounters Encounter Location Date Provider Diagnosis [facility] [address] [place] [address] 06/24/2024 Jayme Soni Jr Osorio's esophagus without [...] Provider Name:Jayme barakat , 06/23/2025 09:00:00 AM, [address] [place] [address], [address], [place], [address], Insurance Providers Payer Name Payer Address Payer Phone Subscriber Number Group Number Insured Name Patient Relationship to Insured Coverage Start Date Coverage End Date [facility] [address] [place] [phone] [id number] TERRI HERMOSILLO Self - patient is the [...]
--- OUTSIDE RECORDS SUMMARY | 2025-03-24 17:05 | XMS_ITS | Patient Health Record ---
Author Organization [facility] [place] Address [address] [place] [address] Care Team Providers Care Degreasing Wheel Operator Name Role Phone Makeda Goode MD Primary Care Provider Unavailab Rom Rose Unavailable [phone] Allergies No Known Allergies Results Component Value [...] capsule Orally once at night Active Nystop 918821 UNIT/GM External Not-Taking Extra Depth Orthopedic Shoes [...] Problem Acquired hammer toe of right foot (055559296663 9105) Other hammer toe(s) (acquired), right foot (M20.41) Active confirmed Problem Acquired hammer toe of left foot (961341979631 9103) Other hammer toe(s) (acquired), left foot (M20.42) Active confirmed Problem Type 2 diabetes mellitus with diabetic polyneuropathy (E11.42) Active confirmed Vital Signs Blood pressure diastolic 78 mm Hg 01/03/2025 Height 5 ft 8 in in 01/03/2025 Blood pressure systolic 132 mm Hg 01/03/2025 Weight 226 lbs 01/03/2025 BMI 34.36 kg/m2 01/03/2025 Procedures Procedure Date Ordered Date Performed Result Body Sit e 26292-IMBQYIL NAIL, 6 OR MORE 06/04/2024 N/A 29980-IECP SKIN LESIONS, OVER 4 06/04/2024 N/A 32183-HWCXEOA NAIL, 6 OR MORE 01/03/2025 N/A 38761-FPIQ SKIN LESIONS, OVER 4 01/03/2025 N/A Encounters Encounter Location Date Provider Diagnosis [address] [address] 06/04/2024 Rom Pollock Type 2 diabetes mellitus with diabetic polyneuropathy E11.42 and Tinea unguium B35.[address] [address] 01/03/2025 Rom Pollock Type 2 diabetes mellitus with diabetic polyneuropathy E11.42 ; Onychomycosis B35.1 ; Other hammer toe(s) (acquired), right foot M20.41 and Other hammer toe(s) (acquired), left foot M20.[address] [address] 10/11/2024 Rom Pollock Assessments Encounter Date Diagnosis [...] Date Hemoglobin A1c 02/10/2015 Hemoglobin A1c 05/19/2015 13002-JVWBVQC NAIL, 6 OR MORE 02/10/2015 16619-WDOOMBV NAIL, 6 OR MORE 05/19/2015 80523-KLVGIUJ NAIL, 6 OR MORE 08/07/2015 69487-ALMFDSB NAIL, 6 OR MORE 11/24/2015 25374-ANNXJMT NAIL, 6 OR MORE 01/27/2014 09879-NDXKPRE NAIL, 6 OR MORE 04/08/2014 16506-OHYXPVT NAIL, 6 OR MORE 07/04/2014 18652-GIDHJCH NAIL, 6 OR MORE 11/11/2014 69884-HRPKIEI NAIL, 6 OR MORE 02/23/2016 68840-JLJJYDO NAIL, 6 OR MORE 05/24/2016 68313-WXDWGJS NAIL, 6 OR MORE 11/22/2016 94201-ZYCYNLI NAIL, 6 OR MORE 02/21/2017 14561-JAFBAZS NAIL, 6 OR MORE 05/12/2017 83954-ANWEVQS NAIL, 6 OR MORE 11/10/2017 57792-COWYZOT NAIL, 6 OR MORE 03/09/2018 62928-PQLAALQ NAIL, 6 OR MORE 06/12/2018 75505-IQTYEJF NAIL, 6 OR MORE 11/27/2018 04000-WTVUJQC NAIL, 6 OR MORE 02/15/2019 53670-MQMIAIA NAIL, 6 OR MORE 05/21/2019 68596-JMKRRTW NAIL, 6 OR MORE 11/26/2019 32882-GMMXBYA NAIL, 6 OR MORE 03/17/2020 20029-LIKTUMW NAIL, 6 OR MORE 06/16/2020 91245-PXSEGOC NAIL, 6 OR MORE 09/22/2020 85321-YCARLGL NAIL, 6 OR MORE 12/22/2020 28249-GIYGSOL NAIL, 6 OR MORE 04/09/2021 44895-WCWCPMU NAIL, 6 OR MORE 11/19/2021 39669-LAMJITI NAIL, 6 OR MORE 02/18/2022 09671-GOYEVDR NAIL, 6 OR MORE 05/06/2022 81651-DBQXUAJ NAIL, 6 OR MORE 11/25/2022 05316-HILWMDI NAIL, 6 OR MORE 02/24/2023 77807-JOTNDFY NAIL, 6 OR MORE 05/26/2023 28082-VINIWVN NAIL, 6 OR MORE 11/21/2023 70092-LPAOLYL NAIL, 6 OR MORE 02/20/2024 88467-MKMTWGW NAIL, 6 OR MORE 06/04/2024 36212-VVNCJXK NAIL, 6 OR MORE 01/03/2025 71630-Jqmwjbfp Plate 05/21/2019 04004-QMLB SKIN LESIONS, OVER 4 05/21/20 78510-YDES SKIN LESIONS, OVER 4 02/16/20 57555-SYRE SKIN LESIONS, OVER 4 03/17/20 82018-XRKD SKIN LESIONS, OVER 4 11/26/19 20 24035-LYXF SKIN LESIONS, OVER 4 04/09/20 79790-BYCG SKIN LESIONS, OVER 4 12/23/19 00659-UBSW SKIN LESIONS, OVER 4 09/22/19 21 23658-LKYY SKIN LESIONS, OVER 4 06/16/20 84837-VCPQ SKIN LESIONS, OVER 4 02/20/20 24 51001-DJUC SKIN LESIONS, OVER 4 11/21/19 24 05553-UKGY SKIN LESIONS, OVER 4 05/26/20 23 29833-YLVD SKIN LESIONS, OVER 4 02/25/20 23 09779-UQGO SKIN LESIONS, OVER 4 11/26/19 23 60226-XCZR SKIN LESIONS, OVER 4 05/06/20 15715-VPJM SKIN LESIONS, OVER 4 02/19/20 86704-EAXC SKIN LESIONS, OVER 4 11/20/19 01710-XTXQ SKIN LESIONS, OVER 4 11/28/19 19 23216-VGMI SKIN LESIONS, OVER 4 06/12/20 18 78209-LFXA SKIN LESIONS, OVER 4 03/09/20 18 92101-UBJI SKIN LESIONS, OVER 4 11/11/19 18 13236-DCAQ SKIN LESIONS, OVER 4 05/12/20 78497-QRFV SKIN LESIONS, OVER 4 11/23/19 17 48218-DSPM SKIN LESIONS, OVER 4 02/22/20 17 11387-TDUM SKIN LESIONS, OVER 4 05/24/20 16 81589-WYWV SKIN LESIONS, OVER 4 02/23/20 16 86293-XNVH SKIN LESIONS, OVER 4 11/12/19 15 94350-UYHD SKIN LESIONS, OVER 4 07/04/20 14 71537-AAQK SKIN LESIONS, OVER 4 04/08/20 14 63783-CJRX SKIN LESIONS, OVER 4 11/24/19 16 88902-SMRV SKIN LESIONS, OVER 4 08/07/19 16 16380-MNIL SKIN LESIONS, OVER 4 02/11/20 15 91501-UBFT SKIN LESIONS, OVER 4 05/19/20 15 19388-YJOJ SKIN LESIONS, OVER 4 01/04/20 25 36852-TTQX SKIN LESIONS, OVER 4 06/04/20 24 00950-KVJS SKIN LESIONS, 2 TO 4 01/28/20 14 Next Appt Details Provider Name:Rom Stevie Pollock , 04/08/2025 03:30:00 PM, [address] [place], [address], Insurance Providers Payer Name Payer Address Payer Phone Subscriber Number Group Number Insured Name Patient Relationship to Insured Coverage Start Date Coverage End Date [employer]vantage [address] [place] [address] [id number] Chris Avalos Self - patient is the [...] 04/2022 Hospitalization History Reason Date(Month/Year) [facility]- D jose /BP 200 CT scans taken overnight cause too much sun 09/2021 Hip replacement surgery 05/2015
--- OUTSIDE RECORDS SUMMARY | 2025-03-24 17:06 | XMS_ITS | Encounter Summary ---
Author Organization [facility] Address [address] [place] [address] Care Team Providers Care Qa Software Tester Name Role Phone Physician, Pcp Unknown Primary Care Provider Velia vailable Encounter Details Date Type Department Care Team (Late st Contact Info) Description 02/19/[address] [facility] - Main Lab [address] [facility] [place] [address] Zion Denis MD [address] [facility] [address] [place] [id number] Benign essential microscopic hematuria Social History Tobacco Use Types Packs/Day Years Used Date Smoking Tobacco: Never Assessed Sex and Gender Information Value Date Recorded Sex Assigned at Not on file Legal Sex Male 10:09 AM EDT Gender Identity Not on file Sexual Orientation Not on file documented as of this encounter Plan of Treatment Not on file documented as of this encounter Procedures Procedure Name Priority Date/Time Associated Diagnosis Comments NON-GYNECOLOGIC CYTOLOGY Routine 02/10/2025 12:00 AM EDT Benign essential microscopic hematuria documented in this encounter Results * Non-gynecologic cytology (02/10/2025 12:00 AM EDT) Final Diagnosis Urine, Voided, [id number]: Negative for high grade urothelial carcinoma. Fungal organisms present consistent with Yessica genus. Results of UroVysion fluorescence in situ hybridization (FISH) testing: CEP3: Normal CEP7: Normal CEP17: Normal LSI 9p21: Normal Interpretation: Normal profile Controls stained appropriately. Note: The results are intended as a screening device and should be interpreted in association with other clinical and pathological findings. 03/03/2025 2:15 PM EDT [facility] ([facility]) HOSPITAL LAB Specimen A Adequacy Satisfactory for evaluation 03/03/2025 2:15 PM EDT [facility] Clinical Information Benign essential microscopic hematuria R31.1 Urine Cytology/FISH (now) 03/03/2025 2:15 PM EDT [facility] Gross Description A. Urine, Voided, [id number]: Received one ThinPrep slide for cytology and one ThinPrep slide for UroVysion FISH 03/03/2025 2:15 PM EDT [facility] Disclaimer Unless otherwise specified, all tissue is 10% NB formalin fixed and paraffin embedded. Technical pathology services provided by [facility] at [address] [place] [address] [address], [place] [address] (CLIA #[id number]/Maria M Pérez MD, Septic Tank Servicer) 03/03/2025 2:15 PM EDT [facility] Urine Urine specimen from urethra / Unknown 02/10/2025 02/19/2025 10:45 AM EDT us Zion Denis MD LAB CYTOLOGY ORDERABLES Final R esult [facility] [address] [place] [address], documented in this encounter Visit Diagnoses Diagnosis Benign essential microscopic hematuria documented in this encounter Care Teams Qa Software Tester Relationship Specialty Start Date End Date Physician, Pcp Unknown PCP - General 02/19/25 documented as of this encounter
--- OUTSIDE RECORDS SUMMARY | 2025-03-24 17:06 | XMS_ITS | Clinical Summary ---
Author Organization [address] Address [address] [place] [address] Phone Care Team Providers Care Bookbinding Machine Operator Name Role Phone Physician, Pcp Unknown Primary Care Provider Velia vailable Encounters Date Type Department Care Team Description 02/19/2025 Lab Requisition [facility] - Main Lab [address] [facility] [place] [address] Zion Denis MD Benign essential microscopic hematuria from Last 3 Months Social History Tobacco Use Types Packs/Day Years Used Date Smoking Tobacco: Never Assessed Sex and Gender Information Value Date Recorded Sex Assigned at Not on file Legal Sex Male 10:09 AM EDT Gender Identity Not on file Sexual Orientation Not on file Plan of Treatment Health Maintenance Due Date Last Done Comments DTaP,Tdap,and Td Vaccines (1 - Tdap) 01/11/1960 Pneumococcal Vaccine: 50+ Ye ars (1 of 1 - PCV) 1991 Zoster Vaccines (1 of 2) 1991 RSV Immunization Adult Patie nts (1 - 1-dose 75+ series) 01/11/2016 COVID-19 Vaccine ( - 2023-2 5 season) 2024 Depression Screening 07/31/2024 Cholesterol Screening (Lipid Panel) 02/20/2025 Falls Risk Assessment 02/20/2025 Social Influencers of Health Screening 02/20/2025 Influenza Vaccine (#1) 2025 HIB Vaccines Aged Out No longer eligi ble based on patient's age to complete this topic HPV Vaccines Aged Out No longer eligi ble based on patient's age to complete this topic Hepatitis A Vaccines Aged Out No long er eligible based on patient's age to complete this topic Hepatitis B Vaccines Aged Out No long er eligible based on patient's age to complete this topic IPV Vaccines Aged Out No longer eligi ble based on patient's age to complete this topic MMR Vaccines Aged Out No longer eligi ble based on patient's age to complete this topic Meningococcal ACWY Vaccine Aged Out N o longer eligible based on patient's age to complete this topic Meningococcal B Vaccine Aged Out No l onger eligible based on patient's age to complete this topic RSV Immunization Patients Un howard 20 months Aged Out No longer eligible b ased on patient's age to complete this topic Varicella Vaccines Aged Out No longer eligible based on patient's age to complete this topic Procedures Procedure Name Priority Date/Time Associated Diagnosis Comments NON-GYNECOLOGIC CYTOLOGY Routine 02/10/2025 12:00 AM EDT Benign essential microscopic hematuria from Last 3 Months Results * Non-gynecologic cytology (02/10/2025 12:00 AM EDT) Final Diagnosis Urine, Voided, [id number]: Negative for high grade urothelial carcinoma. Fungal organisms present consistent with Yessica genus. Results of UroVysion fluorescence in situ hybridization (FISH) testing: CEP3: Normal CEP7: Normal CEP17: Normal LSI 9p21: Normal Interpretation: Normal profile Controls stained appropriately. Note: The results are intended as a screening device and should be interpreted in association with other clinical and pathological findings. 03/03/2025 2:15 PM EDT [facility] LAB Specimen A Adequacy Satisfactory for evaluation 03/03/2025 2:15 PM EDT [facility] Clinical Information Benign essential microscopic hematuria R31.1 Urine Cytology/FISH (now) 03/03/2025 2:15 PM EDT [facility] Gross Description A. Urine, Voided, [id number]: Received one ThinPrep slide for cytology and one ThinPrep slide for UroVysion FISH 03/03/2025 2:15 PM EDT [facility] Disclaimer Unless otherwise specified, all tissue is 10% NB formalin fixed and paraffin embedded. Technical pathology services provided by [facility] at [address] [place] [address] [address], [place] [address] (CLIA #[id number]/Maria M Pérez MD, Real Estate Sales Manager) 03/03/2025 2:15 PM EDT [facility] Urine Urine specimen from urethra / Unknown 02/10/2025 02/19/2025 10:45 AM EDT us Zion Denis MD LAB CYTOLOGY ORDERABLES Final R esult [facility] [address] [place] [address], [place] [phone] from Last 3 Months Insurance [employer] [employer] Care Teams Bookbinding Machine Operator Relationship Specialty Start Date End Date Physician, Pcp Unknown PCP - General 02/19/25
== END 2025-03-24 15:56 | disposition home or self-care (01) ==
LOC: HO.HKA 15:29
PROVIDERS: PCP Family Medicine; Visit Provider Internal Medicine Nephrology
DX: I10 Essential (primary) hypertension (principal); E11.22 Type 2 diabetes mellitus with diabetic chronic kidney disease; N18.32 Chronic kidney disease, stage 3b
CPT/HCPCS: 99214

== ENCOUNTER → 2025-03-24 15:28 | Outpatient (BNVA) | payer MEDICARE, SELFPAY | PROVIDERS: PCP Family Medicine; Visit Provider Internal Medicine Nephrology | DX: E11.22 Type 2 diabetes mellitus with diabetic chronic kidney disease (principal); N18.32 Chronic kidney disease, stage 3b; I10 Essential (primary) hypertension | CPT/HCPCS: 99212 ==

== ENCOUNTER 2025-06-16 09:55 | Outpatient (AMB) | payer MEDICARE, SELFPAY ==
--- NOTE | 2025-06-16 10:03 | A.OFFVIS_ITS ---
Vital Signs 06/16/25 10:04 Height 5 ft 8 in Weight 225 lb 4.999 oz BMI 34.3 BP 140/62 H Blood Pressure Location Rt brachial Position Sitting Pulse 60 Pulse Source Pulse Oximeter Intake Visit Reasons: 6m follow up Intake Note: 6 mth f/up- echo and sleep Photographic Equipment Assembler Required: No Accompanied by: Spouse Allergies No Known Allergies Allergy (Verified 03/24/25 15:31) Medication List - Last Reconciled 06/16/25 by Joseph Araujo MD amitriptyline 50 mg PO DAILY amlodipine 5 mg PO BEDTIME apixaban 2.5 mg PO BID 90 days aspirin (Adult Aspirin Regimen) 81 mg PO DAILY atorvastatin 40 mg PO BEDTIME ciclopirox 0.77% appl topical coenzyme Q10 (Co Q-10) 100 mg PO DAILY empagliflozin 25 mg PO DAILY 90 days fenofibrate nanocrystallized 48 mg PO DAILY isosorbide mononitrate ER 30 mg PO DAILY loratadine 10 mg PO DAILY metformin 1,000 mg PO BEDTIME multivitamin 1 tab PO DAILY nitroglycerin 0.4 mg sublingual every 5 min as needed for chest pain, max 3 doses per event; every 5 min as needed for chest pain, max 3 doses per event 30 days omeprazole 20 mg PO DAILY pregabalin 100 mg PO BEDTIME sodium bicarbonate 650 mg PO DAILY sotalol 80 mg PO DAILY tramadol 50 mg PO Q8H PRN HPI Comments Details: 85-year-old gentleman here for follow-up. He has background history of paroxysmal atrial fibrillation and has been on sotalol and has been sinus rhythm. He also has known coronary disease with previous PCI right coronary artery and circumflex arteries. Clinically stable and has been doing well. He is just recovering from left knee replacement. He is undergoing rehab at this stage and 3 weeks out from surgery. He has significant pain in the knee but is trying to exercise regularly at rehab facility. Denying any chest pain or shortness of breath. Overall cl inically stable. 06/07/2023: He returns for follow-up. His EKG in the office showing inferior Q- waves which are new. He is denying any symptoms. He is actually more active than before and has been going to gym every day and exercising up to 5 hours. He is denying any chest discomfort or significant shortness of breath. His main complaint again is fatigue. No bleeding issues. Taking his medications regularly. Blood pressure control is good. He is in sinus rhythm on sotalol. 01/03/24: He returns for follow-up. He came back from [place] in 11/18/2023. He had some blood workup done recently which showed triglycerides more than 600. He was started on fenofibrate by his primary care physician. He has not noticed any muscle aches and pains. He has chronic joint pains which are similar to before. He said his diet while he was in [place] was not great because of using a lot of processed foods and canned food. They are changing the diet while there back in [place]. He is denying any chest pains or shortness of breath. No bleeding concerns on apixaban. He is on sotalol with normal QT interval and he is in sinus bradycardia. 05/29/2024: He is here for follow-up. He is denying any chest discomfort but continues to get some shortness of breath with activities. He has lower extremity edema. He has peripheral neuropathy on chronic metformin. He has CKD and is going to seen Nephrology. 12/02/2024: Can is here for follow-up. He came back from [place] in October. He has spent the echeverria in [place] and said he was walking without any significant issues. He does get problem when he goes uphill and gets short of breath. Main issue again is pain in his feet and legs due to arthritis and neuropathy. He is feeling fatigued and goes to sleep very easily. He is saying that when he is sitting he goes to sleep right away. 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 06/16/2025: He is here for follow-up. He has been doing well. Other than his arthritis no other complaints. Blood pressure readings previously had been stable but today is slightly elevated. He will keep a log of his blood pressures and call us in the next 10 days. Taking Eliquis 2.5 mg twice a day. It appears his creatinine was as high as 1.5 at 1 stage and the dose has been decreased to 2.5 mg daily. He is 85 years old. [facility] Medical History JOHANNY (obstructive sleep apnea) Other fatigue Other idiopathic peripheral autonomic neuropathy Essential (primary) hypertension Gastro-esophageal reflux disease without esophagitis Intrinsic (allergic) eczema Pruritus, unspecified Benign prostatic hyperplasia without lower urinary tract symptoms Type 2 diabetes mellitus with diabetic nephropathy Venous insufficiency (chronic) (peripheral) Chronic kidney disease, stage 3a Atherosclerotic heart disease of [place] coronary artery without angina pectoris Type 2 diabetes mellitus with diabetic polyneuropathy Obstructive sleep apnea (adult) (pediatric) Impacted cerumen of both ears Essential tremor Ventricular premature depolarization Pure hyperglyceridemia Pure hypercholesterolemia, unspecified Pain in right knee Hyperkalemia Acute metabolic acidosis Ataxic gait Hypertension PAF (paroxysmal atrial fibrillation) Stable angina Surgical History Hx of cholecystectomy History of cardiac cath History of total right knee replacement History of hip surgery Family History Father No problems noted. Mother No problems noted. Social History Alcohol intake: current Alcohol intake frequency: holidays/special occasions only Patient Tobacco Use Status: Former Tobacco user Years Smoked: 5 +/- Review of Systems Const Denies chills, Denies fatigue, Denies fever(s), Denies frequent falls, Denies weakness, Denies weight gain and Denies weight loss ENT Denies dizziness Card Denies chest pain, Denies leg edema, Denies lightheadedness, Denies palpitations, Denies dyspnea and Denies dyspnea on exertion Resp Denies cough, Denies dyspnea and Denies dyspnea on exertion GI Denies hematochezia Musc Denies abnormal gait, Denies muscle weakness, Denies numbness, Denies radiating pain into limb and Denies tingling Neuro Denies abnormal gait, Denies dizziness, Denies frequent falls, Denies numbness, Denies tingling and Denies weakness Endo Denies fatigue and Denies palpitations Physical Exam Vital Signs: Last Vital Signs Pulse 60 06/16/25 10:04 BP 140/62 H 06/16/25 10:04 BMI result Body Mass Index 34.3 GENERAL APPEARANCE: in no acute distress, pleasant. NECK: no carotid bruit, no jugular venous distention. SKIN: no suspicious lesions, warm and dry. HEART: no murmurs, regular rate and rhythm. LUNGS: Crackles at bases. ABDOMEN: soft, nontender. EXTREMITIES: Mild edema. PERIPHERAL PULSES: equal. 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 He has known history of paroxysmal atrial fibrillation on sotalol and has been on sinus rhythm. He is on anticoagulation with apixaban 2.5 mg twice a day. It appears his creatinine was as high as 1.5 at 1 stage and he is 85 years old and the dose has been decreased. Previously was on 5 mg twice a day. I have noticed that his creatinine does fluctuate up and down and does not stay more than 1.5 all the time. He has done well with this dose so far and after some discussion I have decided to continue same dose along with baby aspirin. Repeat echocardiography in December 2024 has shown normal LVEF without any regional wall motion abnormalities with grade 2 diastolic dysfunction. Normal right ventricular size and function. No significant valvular pathology noted. Mild pulmonary hypertension. He will continue same medications for now. He will see us back once he returns from [place]. Thank you for allowing me to participate in the care of your patient. Please feel free to contact me if you have any questions. 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
[2025-06-16 10:04] VITALS: BP 140/62; PULSE 60; BMI 34.3
== END 2025-06-16 10:41 | disposition home or self-care (01) ==
LOC: HO.HCS 09:55
PROVIDERS: PCP Family Medicine; Visit Provider Internal Medicine Cardiovascular Disease
DX: I10 Essential (primary) hypertension (principal); I48.0 Paroxysmal atrial fibrillation; E11.22 Type 2 diabetes mellitus with diabetic chronic kidney disease; N18.32 Chronic kidney disease, stage 3b; G47.33 Obstructive sleep apnea (adult) (pediatric); I20.89 Other forms of angina pectoris
CPT/HCPCS: 99214

== ENCOUNTER → 2025-06-16 09:55 | Outpatient (BNVA) | payer MEDICARE, SELFPAY | PROVIDERS: PCP Family Medicine; Visit Provider Internal Medicine Cardiovascular Disease | DX: I10 Essential (primary) hypertension (principal); I48.0 Paroxysmal atrial fibrillation; E11.22 Type 2 diabetes mellitus with diabetic chronic kidney disease; N18.32 Chronic kidney disease, stage 3b; G47.33 Obstructive sleep apnea (adult) (pediatric); Z99.89 Dependence on other enabling machines and devices; I20.89 Other forms of angina pectoris | CPT/HCPCS: 99212 ==

== ENCOUNTER 2025-07-04 13:41 | Outpatient (AMB) | payer MEDICARE, SELFPAY ==
--- OUTSIDE RECORDS SUMMARY | 2024-09-20 09:50 | XMS_ITS | Continuity of Care Document ---
Author Organization [facility] Address [address] [place] [phone] Phone Care Team Providers Care Portable Track Crew Chief Name Role Phone Karin CORTEZ, Jalil Unavailable Unavailable Allergies, Adverse Reactions, Alerts Substance Reaction Status Criticality No Known Allergies Active No Inform ation Medications Medication Instructions Dosage Effective Dates (start - stop) Status Comments Jardiance 10 mg tablet take 1 tablet by oral route every day in the morning 10 MG - Active atorvastatin 40 mg tablet TAKE 1 TABLET [...] TABLET BY MOUTH AT BEDTIME - Active ciclopirox 0.77 % topical cream - Active [...] times every day 100 MG - Active amlodipine 5 mg tablet - No Longer Active Procedures Procedure Date Intravitreal injection OCT post segmt Eylea SAMPLE E&M est moderate complexity Intravitreal injection OCT post segmt Eylea SAMPLE Intravitreal injection OCT post segmt Eylea SAMPLE E&M est moderate complexity Intravitreal injection OCT post segmt Lucentis 0.5 Eye exam established comprehensive Intravitreal injection OCT post segmt Lucentis 0.5 Intravitreal injection OCT post segmt Lucentis 0.5 SAMPLE E&M New moderate complexity Results Test Name Date and Time Measure Units Reference Range Abnormal Flag Status Comments Panel Description: Not Available Final Image [facility] Map Single Exam Report- 1 Advance Directives Directive Yes / No Effective Date File Name No Information Encounters Encounter Description Practice Location Reason(s) For Visit Diagnoses Date Provider Providers Copied on Encounter E&M est moderate complexity [facility], [address] [place], [place], [id number] , [place] tel: [phone] [address] [facility] WAMD (chief complaint) Exudative age-related macular degeneration, left eye, with active choroidal neovascularizationExu dative age-related macular degeneration, right eye, with active choroidal neovascularization 5 Karin rod. [address] [place], [place], [id number] , [place]. tel: [phone] Referring Provider: Clark Lacey, [address] [place], [address]. tel:[phone] [facility], [address], [place], [place], [id number] , [place] tel: [address] (chief complaint) Exudative age-related macular degeneration, left eye, with active choroidal neovascularization Sep-0 4 Abhijit Rodas. [address] [place], [address], [place]. tel: Referring Provider: Clark Lacey, [address] [place], [address]. tel:[phone] E&M est moderate complexity [facility], [address], [place], [place], [id number] , [place] tel: [place] [phone] [facility] (chief complaint) Exudative age-related macular degeneration, right eye, with active choroidal neovascularizationExu dative age-related macular degeneration, left eye, with active choroidal neovascularization 4 Abhijit Rodas. [address] [place], [address], [place]. tel:[phone] Referring Provider: Clark Lacey, [address] [place], [address]. tel:[phone] [facility], [address] [place], [place], [id number] , [place] tel: [address] (chief complaint) Exudative age-related macular degeneration, right eye, with active choroidal neovascularizationVit reous degeneration, bilateralNonexudative age-related macular degeneration, left eye, intermediate dry stage 3 Abhijit Rodas. [address] [place], [address], [place]. tel: Referring Provider: Clark Lacey, [address] [place], [address]. tel:[phone] [facility], [address] [place], [place], [id number] , tel: [phone] [place] [address] [place] [facility] WAMD w/ SRH (chief complaint) Exudative age-related macular degeneration, right eye, with active choroidal neovascularization 3 Abhijit Rodas. [address] [place], [address], [place]. tel: [phone] Referring Provider: Clark Lacey, [address] [place], [address]. tel:[phone] E&M [facility] complexity [facility], [address] [place], [place], [id number] , tel: [phone] [place] [address] [place] TEA WAMD (chief complaint) Exudative age-related macular degeneration, right eye, with active choroidal neovascularizationNon exudative age-related macular degeneration, left eye, intermediate dry stageVitreous degeneration, bilateral 3 Abhijit Rodas. [address] [place], [address], [place]. tel: [phone] Referring Provider: Clark Lacey, [address] [place], [place], [facility]. tel:[phone] Family History Family Member Type Diagnosis Age At Onset No Information Immunizations Vaccine Date Status Comments Flu (split) (3 yrs or older) administered Source: Other Provider Flu (split) (3 yrs or older) administered Source: Other Provider Pneumo (2 yrs or older)(PPV) administered Source: Other Provider Flu (split) (3 yrs or older) administered Source: Other Provider Payers Payer name Insurance type Covered republican ID Naomy cuellar([employer] [facility] 16 [id number] Social History Type Description Quantity Date Captured Comments Alcohol Use Details Unknown Caffeine Use Details Unknown Tobacco Use Status Ex-cigarette smoker 025 Smoking Status Former smoker Sex Male Chief Complaint And Reason For Visit From encounter dated '09/20/2024 14:50'. WAMD (chief complaint). Description: The 84 year old patient presents for evaluation of WAMD in theOS.Pt is here for RCI, HUBER OS, OCT OU, DIL OU . Pt states BS is stable and managed by medicine but doesnt know A1C from last visit .Pt reports a decasre in VA OU In addition, the condition is associated with difficulty reading fine print. Patient denies: flashes, eye pain, floater. Reason For Referral Reason For Referral No Information History Of Present Illness Encounter Date Complaint History Of Prese nt Illness WAMD The 84 year old patient presents for evaluation of WAMD in the OS.Pt is here for RCI, HUBER OS, OCT OU, DIL OU . Pt states BS is stable and managed by medicine but doesnt know A1C from last visit .Pt reports a decasre in VA OU In addition, the condition is associated with difficulty reading fine print. Patient denies: flashes, eye pain, floater. WAMD The 83 year old patient presents for evaluation of WAMD in the OU. Pt is here for MAC, possible NICK OS vs HUBER SAMPLE OS, OCT OU, NO DIL. Pt [...] A1c was 7.2.Pt last saw Retina Dr nancy mack 06/30/2023. WAMD The 82 year old patient [...] x 5, pt was last seen up [place] and found active SRH and SRF due to CF vision pt and Dr declined tx at that time last injection was 11/20/20. Pt came down here and saw Dr. Soriano and was referred to us due to active edema and heme in OD. Records are scanned in. Pt has not noticed a change in his VA OD at all, pt went to [facility] to get new glasses mainly for OS [...] with active choroidal neovascularization Impression/Plan Related to Vitre ous degeneration, bilateral Impression/Plan Related to Nonex udative age-related macular degeneration, left eye, intermediate dry stage Impression/Plan Related to Exuda tive age-related macular degeneration, right eye, with active choroidal neovascularization Impression/Plan Related to Vitre ous degeneration, bilateral Impression/Plan Related to Nonex udative age-related macular degeneration, left eye, intermediate dry stage Impression/Plan Related to Exuda tive age-related macular degeneration, right eye, with active choroidal neovascularization Assessments Type Assessment Date assessment Exudative age-relate d macular degeneration, left eye, with active choroidal neovascularization impression Exudative age-relate d macular degeneration, left eye, with active choroidal neovascularization: H35.3221. assessment Exudative age-relate d macular degeneration, right eye, with active choroidal neovascularization impression Exudative age-relate d macular degeneration, right eye, with active choroidal neovascularization: H35.3211. Patient Care Teams Name Effective Dates (start - stop) Status Members No Information
--- NOTE | 2025-07-04 13:46 | HO.NEPHOV ---
Vital Signs 07/04/25 13:47 Height 5 ft 8 in Weight 223 lb 4 oz BMI 33.9 BP 130/60 Blood Pressure Location Rt brachial Position Sitting Pulse 59 Pulse Source Pulse Oximeter Pulse Oximetry (%) 95 Oxygen Delivery Method Room Air Intake Visit Reasons: 3mon f/u w/labs-Conf Affirmative Action Officer Required: No Accompanied by: Spouse Allergies No Known Allergies Allergy (Verified 07/04/25 13:47) HPI Comments Details: Richard was seen was seen in follow up for worsening renal function. He is 85 years of age with Diabetes for a long time. His blood sugar is better controlled. He has been on SGLT2 i . He has CAD as well as hypertension. He carried a diagnosis of diabetic nephropathy. He denied any new bone or back pain. His BP has been well controlled. He denies taking excess NSAID's. He denied any nephrotic range proteinuria or cardiomyopathy. He denies any epistaxis, photosensitivity, hematuria, sinusitis, hemoptysis, new skin rashes or joint swelling. [facility] Medical History (Updated 07/04/25 @ 14:05 by Mars Rodas MD) JOHANNY (obstructive sleep apnea) Other fatigue Other idiopathic peripheral autonomic neuropathy Essential (primary) hypertension Gastro-esophageal reflux disease without esophagitis Intrinsic (allergic) eczema Pruritus, unspecified Benign prostatic hyperplasia without lower urinary tract symptoms Type 2 diabetes mellitus with diabetic nephropathy Venous insufficiency (chronic) (peripheral) Chronic kidney disease, stage 3a Atherosclerotic heart disease of [place] coronary artery without angina pectoris Type 2 diabetes mellitus with diabetic polyneuropathy Obstructive sleep apnea (adult) (pediatric) Impacted cerumen of both ears Essential tremor Ventricular premature depolarization Pure hyperglyceridemia Pure hypercholesterolemia, unspecified Pain in right knee Hyperkalemia Acute metabolic acidosis Ataxic gait Hypertension PAF (paroxysmal atrial fibrillation) Stable angina Surgical History Hx of cholecystectomy History of cardiac cath History of total right knee replacement History of hip surgery Family History Father No problems noted. Mother No problems noted. Social History Alcohol intake: current Alcohol intake frequency: holidays/special occasions only Patient Tobacco Use Status: Former Tobacco user Years Smoked: 5 +/- Review of Systems Const All systems reviewed & are unremarkable except as noted in HPI and below Physical Exam Vital Signs: Last Vital Signs Pulse 59 07/04/25 13:47 BP 130/60 07/04/25 13:47 Pulse Ox 95 07/04/25 13:47 Oxygen Delivery Method Room Air 07/04/25 13:47 BMI result Body Mass Index 33.9 Const General: comfortable and no acute distress Orientation/consciousness: patient oriented x3 HEENT Head: Yes normocephalic Mouth: Normal oral and palatal mucosa present Eyes EOM: EOMs intact bilaterally Neck Neck: Yes supple Resp Auscultation: clear to auscultation bilaterally Cardio Jugular venous distension: no JVD Rate: regular rate GI Palpation (GI): Soft to palpation Auscultation: normal bowel sounds General: Yes no CVA tenderness Back/Spine/Pelvis Back: no CVA tenderness Skin General skin exam: no rashes or lesions noted Neuro General: patient oriented x3 and moves all extremities Extrem General: Yes no pedal edema Results Reviewed Nephrology Results: Renal US 07/09/24 Assessment & Plan Assessment & Plan (1) Hypertension: Code(s): I10 - Essential (primary) hypertension Category: Medical Qualifiers: Hypertension type: primary hypertension Qualified Code(s): I10 - Essential (primary) hypertension (2) 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 He is not on ACEI/ARB. He does not take excess NSAID's. He can continue on Jardiance 25 mg daily and PO NaHCO3 650 mg daily. He needs to loose weight, keep his BS better controlled and keep his BP at goal. He needs to avoid NSAID's and maintain good hydration. All these have been explained in detail. Answered all his questions. F/U given Orders: Orders Electrolytes 4 Months . - Type 2 diabetes mellitus with diabetic chronic kidney disease, E87.5 - Hyperkalemia, I10 - Essential (primary) hypertension, N18.32 - Chronic kidney disease, stage 3b Calcium 4 Months E11. - Type 2 diabetes mellitus with diabetic chronic kidney disease, E87.5 - Hyperkalemia, I10 - Essential (primary) hypertension, N18.32 - Chronic kidney disease, stage 3b Blood Urea Nitrogen 4 Months E11.22 - Type 2 diabetes mellitus with diabetic chronic kidney disease, E87.5 - Hyperkalemia, I10 - Essential (primary) hypertension, N18.32 - Chronic kidney disease, stage 3b Creatinine 4 Months E11.22 - Type 2 diabetes mellitus with diabetic chronic kidney disease, E87.5 - Hyperkalemia, I10 - Essential (primary) hypertension, N18.32 - Chronic kidney disease, stage 3b Parathyroid Hormone Intact 4 Months E11. - Type 2 diabetes mellitus with diabetic chronic kidney disease, E87.5 - Hyperkalemia, I10 - Essential (primary) hypertension, N18.32 - Chronic kidney disease, stage 3b Phosphorus 4 Months E11. - Type 2 diabetes mellitus with diabetic chronic kidney disease, E87.5 - Hyperkalemia, I10 - Essential (primary) hypertension, N18.32 - Chronic kidney disease, stage 3b Hemoglobin A1c 4 Months E11. - Type 2 diabetes mellitus with diabetic chronic kidney disease, E87.5 - Hyperkalemia, I10 - Essential (primary) hypertension, N18.32 - Chronic kidney disease, stage 3b Vitamin D 25-OH Total 4 Months E11. 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
[2025-07-04 13:47] VITALS: BP 130/60; PULSE 59; O2SAT 95; BMI 33.9
--- OUTSIDE RECORDS SUMMARY | 2025-07-04 17:55 | XMS_ITS | Encounter Summary ---
Author Organization [facility] Address [address] [place] [address] Care Team Providers Care Parts Administrator Name Role Phone Physician, Pcp Unknown Primary Care Provider Velia vailable Encounter Details Date Type Department Care Team (Late st Contact Info) Description 02/19/2025 Lab Requisition [facility] - Main Lab [address] [facility] [place] [address] Zion Denis MD [address] [facility] [address] [place] [id number] Benign essential microscopic hematuria Social History Tobacco [...] 12:00 AM EDT) Final Diagnosis Urine, Voided, [id number]: Negative for high grade urothelial carcinoma. Fungal organisms present consistent with Yessica genus. Results of UroVysion fluorescence in situ hybridization (FISH) testing: CEP3: Normal CEP7: Normal CEP17: Normal LSI 9p21: Normal Interpretation: Normal profile Controls stained appropriately. Note: The results are intended as a screening device and should be interpreted in association with other clinical and pathological findings. 03/03/2025 2:15 PM EDT [facility] LAB at 1415 EDT Specimen A Adequacy Satisfactory for evaluation 03/03/2025 2:15 PM EDT [facility] Clinical Information Benign essential microscopic hematuria R31.1 Urine Cytology/FISH (now) 03/03/2025 2:15 PM EDT [facility] Gross Description A. Urine, Voided, [id number]: Received one ThinPrep slide for cytology and one ThinPrep slide for UroVysion FISH 03/03/2025 2:15 PM EDT [facility] Disclaimer Unless otherwise specified, all tissue is 10% NB formalin fixed and paraffin embedded. Technical pathology services provided by [facility] at [address] [place] [address] [address], [place] [address] (CLIA #[id number]/Maria M Pérez MD, Senior Electronics Engineer) 03/03/2025 2:15 PM EDT [facility] Urine Urine specimen from urethra / Unknown 02/10/2025 02/19/2025 10:45 AM EDT us Zion Denis MD LAB CYTOLOGY ORDERABLES Final R esult [facility] [address] [place] [address], documented in this encounter Visit Diagnoses Diagnosis Benign essential microscopic hematuria documented in this encounter Care Teams Parts Administrator Relationship Specialty Start Date End Date Physician, Pcp Unknown PCP - General 02/19/25 documented as of this encounter
--- OUTSIDE RECORDS SUMMARY | 2025-07-04 17:55 | XMS_ITS | Clinical Summary ---
Author Organization [address] Address [address] [place] [address] Phone Care Team Providers Care Lozenge Maker Helper Name Role Phone Physician, Pcp Unknown Primary Care Provider Velia vailable Social History Tobacco Use Types Packs/Day Years [...] nts (1 - 1-dose 75+ series) 01/11/2016 Depression Screening 07/31/2024 Cholesterol Screening (Lipid Panel) 02/20/2025 Falls Risk Assessment 02/20/2025 Social Influencers of Health Screening 02/20/2025 COVID-19 Vaccine (1 - 2024-2 6 season) 2025 Influenza Vaccine (#1) 2025 HIB Vaccines Aged [...] on patient's age to complete this topic Insurance [employer] [employer] Care Teams Lozenge Maker Helper Relationship Specialty Start Date End Date Physician, Pcp Unknown PCP - General 02/19/25
== END 2025-07-04 14:15 | disposition home or self-care (01) ==
LOC: HO.HKA 13:42
PROVIDERS: PCP Family Medicine; Visit Provider Internal Medicine Nephrology
DX: I10 Essential (primary) hypertension (principal); E11.22 Type 2 diabetes mellitus with diabetic chronic kidney disease; N18.32 Chronic kidney disease, stage 3b; E87.5 Hyperkalemia
CPT/HCPCS: 99214

== ENCOUNTER → 2025-07-04 13:41 | Outpatient (BNVA) | payer MEDICARE, SELFPAY | PROVIDERS: PCP Family Medicine; Visit Provider Internal Medicine Nephrology | DX: I12.9 Hypertensive chronic kidney disease with stage 1 through stage 4 chronic kidney disease, or unspecified chronic kidney disease (principal); E11.22 Type 2 diabetes mellitus with diabetic chronic kidney disease; N18.32 Chronic kidney disease, stage 3b; E87.5 Hyperkalemia; Z79.84 Long term (current) use of oral hypoglycemic drugs; Z79.899 Other long term (current) drug therapy; Z87.891 Personal history of nicotine dependence | CPT/HCPCS: 99212 ==